=== PATIENT | female | born 1935 | race Caucasian/White ===

== ENCOUNTER → 2016-03-06 | Outpatient (CLI) | payer BC ==
[~2016-03-06] MED LIST: ACET325T96 PO; AMLO-110 PO; AMLO-114 PO; AMT/8 PO; ATEN50TA8 PO; CLC100X PO; CLON0.2T PO; CLOP1TAB15 PO; CLR10 PO; CMD3 PO; CYCL10TA6 PO; DESL1TAB5 PO; DOCU100C31 PO; DOXE150C PO; ERTA1INJ IV; FLR1 PO; FRS/40 PO; FURO-85 PO; GLIP-197 PO; GLYB5TAB8 PO; INSU1INJ SC; ISOS30TA3 PO; LACT1CAP3 PO; LCTL45 PO; LISI-729 PO; LOSA50TA6 PO; LPT/40 PO; LSN5 PO; LSX20 PO; LSX40 PO; LYR50 PO; MECL1TAB40 PO; METO-217 PO; METO1TAB66 PO; MIDO5TAB PO; MRLP17 PO; NRN/100 PO; NVLGIPEN SC; OLAN10TA11 PO; OLAN1TAB50 PO; OLAN1TAB64 PO; PANT40TA PO; PLV75 PO; POLY335019; POLY335019 PO; PROM12.56 PO; SERT-234 PO; SERT25TA PO; SERT50TA PO; SIMV40TA4 PO; TRAM-453 PO; TRAZ100T29 PO; WARF4TAB8 PO; ZNTT/150 PO; ZOLP5TAB PO
[2016-03-06 12:05] LABS: URINE APPEARANCE TURBID (CLEAR); URINE BILIRUBIN NEG (NEG); URINE COLOR YELLOW; URINE EPITHELIAL CELL AUTO >30 /lpf (0-5); URINE NITRITE NEG (NEG); URINE SPECIFIC GRAVITY 1.004 (1.000-1.030); UROBILINOGEN NEG (NEG)
[2016-03-06 12:10] LABS: MANUAL MICROSCOPIC REQUIRED? NO; REVIEW REQ? YES
== END | disposition home or self-care (01) ==
LOC: C.LABSPEC 10:49
PROVIDERS: ATTEND Obstetrics & Gynecology
DX: R31.0 Gross hematuria (principal); A49.01 Methicillin susceptible Staphylococcus aureus infection, unspecified site

== ENCOUNTER → 2016-04-07 | Outpatient (CLI) | payer BC | END | disposition home or self-care (01) | LOC: C.LABMFLN 14:45 | PROVIDERS: ATTEND Family Medicine | DX: N30.00 Acute cystitis without hematuria (principal) ==

== ENCOUNTER → 2016-04-10 | Outpatient (CLI) | payer BC ==
[2016-04-10 13:07] LABS: INR 1.9 (0.9-1.1); PROTHROMBIN TIME (PATIENT) 21.2 SECONDS (9.0-12.0)
== END | disposition home or self-care (01) ==
LOC: C.LABMFLN 11:16
PROVIDERS: ATTEND Family Medicine
DX: D68.59 Other primary thrombophilia (principal)

== ENCOUNTER → 2016-04-28 | Outpatient (CLI) | payer BC, OTHER ==
[2016-04-28 17:56] LABS: ALT/SGPT 36 U/L (12-78); AST/SGOT 24 U/L (15-37); BLOOD UREA NITROGEN 17 mg/dl (7-18); BUN/CREATININE RATIO 22.8 (10-20); CALCIUM 8.3 mg/dl (8.5-10.1); CARBON DIOXIDE 31 mmol/L (21-32); CHLORIDE 107 mmol/L (98-107); CHOLESTEROL 135 mg/dl (0-200); CREATININE 0.74 mg/dl (0.60-1.20); GLUCOSE 163 mg/dl (70-99); POTASSIUM 4.1 mmol/L (3.5-5.1); SODIUM 143 mmol/L (136-145)
[2016-04-28 18:06] LABS: CHOLESTEROL/HDL RATIO 2.9; HDL CHOLESTEROL 47 mg/dl; TRIGLYCERIDES 142 mg/dl (0-150); VERY LOW DENSITY LIPOPROT CALC 28 mg/dl
[2016-04-29 06:15] LABS: ESTIMATED AVERAGE GLUCOSE 171 mg/dl; HA1C FLAG Normal (Normal)
== END | disposition home or self-care (01) ==
LOC: C.LABMFLN 04-26 10:37
PROVIDERS: ATTEND Family Medicine
DX: E11.9 Type 2 diabetes mellitus without complications (principal); E78.5 Hyperlipidemia, unspecified; I10 Essential (primary) hypertension; K21.9 Gastro-esophageal reflux disease without esophagitis; R13.10 Dysphagia, unspecified

== ENCOUNTER → 2016-05-01 | Outpatient (CLI) | payer BC ==
[2016-05-01 14:13] LABS: RATIO 743.8 mcg/mg (0-30.0)
== END | disposition home or self-care (01) ==
LOC: C.LABMFLN 08:16
PROVIDERS: ATTEND Family Medicine
DX: K21.9 Gastro-esophageal reflux disease without esophagitis (principal); R13.10 Dysphagia, unspecified; E78.5 Hyperlipidemia, unspecified; I10 Essential (primary) hypertension; E11.9 Type 2 diabetes mellitus without complications

== ENCOUNTER → 2016-05-12 | Outpatient (CLI) | payer BC ==
[2016-05-12 13:13] LABS: HEMATOCRIT 34.5 % (37-47); MEAN CELL VOLUME 88.9 fL (80-100); MEAN CORPUSCULAR HEMOGLOBIN 29.1 pg (25-34); MEAN CORPUSCULAR HGB CONC 32.8 g/dl (32-36); PLATELET COUNT 148 K/uL (130-400); RED BLOOD COUNT 3.88 M/uL (4.2-5.4); WHITE BLOOD COUNT 8.46 K/uL (4.8-10.8)
[2016-05-12 13:29] LABS: BLOOD UREA NITROGEN 16 mg/dl (7-18); BUN/CREATININE RATIO 14.9 (10-20); CALCIUM 8.1 mg/dl (8.5-10.1); CARBON DIOXIDE 31 mmol/L (21-32); CHLORIDE 105 mmol/L (98-107); GLUCOSE 238 mg/dl (70-99); POTASSIUM 4.7 mmol/L (3.5-5.1); SODIUM 141 mmol/L (136-145)
== END | disposition home or self-care (01) ==
LOC: C.LABMFLN 09:34
PROVIDERS: ATTEND Internal Medicine Cardiovascular Disease
DX: I50.32 Chronic diastolic (congestive) heart failure (principal); D68.59 Other primary thrombophilia; I25.5 Ischemic cardiomyopathy

== ENCOUNTER → 2016-05-19 | Outpatient (CLI) | payer BC ==
[2016-05-19 13:29] LABS: BLOOD UREA NITROGEN 18 mg/dl (7-18); BUN/CREATININE RATIO 16.5 (10-20); CALCIUM 8.2 mg/dl (8.5-10.1); CARBON DIOXIDE 34 mmol/L (21-32); CHLORIDE 104 mmol/L (98-107); GLUCOSE 235 mg/dl (70-99); MAGNESIUM 2.1 mg/dl (1.8-2.4); POTASSIUM 4.3 mmol/L (3.5-5.1); SODIUM 141 mmol/L (136-145)
== END | disposition home or self-care (01) ==
LOC: C.LABMFLN 09:32
PROVIDERS: ATTEND Physician Assistant Medical
DX: I50.32 Chronic diastolic (congestive) heart failure (principal)

== ENCOUNTER → 2016-05-24 | Outpatient (CLI) | payer BC ==
[2016-05-24 13:29] LABS: BLOOD UREA NITROGEN 22 mg/dl (7-18); BUN/CREATININE RATIO 16.5 (10-20); CARBON DIOXIDE 31 mmol/L (21-32); CHLORIDE 103 mmol/L (98-107); GLUCOSE 291 mg/dl (70-99); POTASSIUM 4.6 mmol/L (3.5-5.1); SODIUM 141 mmol/L (136-145)
== END | disposition home or self-care (01) ==
LOC: C.LABMFLN 07:52
PROVIDERS: ATTEND Physician Assistant Medical
DX: I50.32 Chronic diastolic (congestive) heart failure (principal)

== ENCOUNTER → 2016-05-26 | Outpatient (CLI) | payer BC ==
[~2016-05-26] MED LIST changes: -FLR1 PO; +FLUD0.1T PO; +METO-452 PO; -METO1TAB66 PO
[2016-05-26 13:39] LABS: BLOOD UREA NITROGEN 20 mg/dl (7-18); BUN/CREATININE RATIO 17.8 (10-20); CALCIUM 8.4 mg/dl (8.5-10.1); CARBON DIOXIDE 32 mmol/L (21-32); CHLORIDE 102 mmol/L (98-107); GLUCOSE 197 mg/dl (70-99); POTASSIUM 4.2 mmol/L (3.5-5.1); SODIUM 142 mmol/L (136-145)
== END | disposition home or self-care (01) ==
LOC: C.LABMFLN 13:53
PROVIDERS: ATTEND Family Medicine
DX: I50.32 Chronic diastolic (congestive) heart failure (principal)

== ENCOUNTER → 2016-06-02 | Outpatient (CLI) | payer BC ==
[2016-06-02 17:59] LABS: URINE APPEARANCE CLEAR (CLEAR); URINE BILIRUBIN NEG (NEG); URINE COLOR YELLOW; URINE EPITHELIAL CELL AUTO 0-5 /lpf (0-5); URINE NITRITE POS (NEG); URINE PH 5.5 (4.5-7.5); UROBILINOGEN NEG (NEG)
[2016-06-02 18:00] LABS: MANUAL MICROSCOPIC REQUIRED? NO; REVIEW REQ? NO
[2016-06-02 18:03] LABS: HEMATOCRIT 33.9 % (37-47); MEAN CELL VOLUME 86.5 fL (80-100); MEAN CORPUSCULAR HEMOGLOBIN 28.3 pg (25-34); MEAN CORPUSCULAR HGB CONC 32.7 g/dl (32-36); PLATELET COUNT 151 K/uL (130-400); RED BLOOD COUNT 3.92 M/uL (4.2-5.4); WHITE BLOOD COUNT 7.46 K/uL (4.8-10.8)
[2016-06-02 18:09] LABS: BLOOD UREA NITROGEN 21 mg/dl (7-18); BUN/CREATININE RATIO 18.7 (10-20); GLUCOSE 206 mg/dl (70-99)
[2016-06-02 18:10] LABS: CALCIUM 8.4 mg/dl (8.5-10.1); CARBON DIOXIDE 36 mmol/L (21-32); CHLORIDE 104 mmol/L (98-107); MAGNESIUM 2.1 mg/dl (1.8-2.4); POTASSIUM 4.1 mmol/L (3.5-5.1); SODIUM 142 mmol/L (136-145)
== END | disposition home or self-care (01) ==
LOC: C.LABMFLN 11:09
PROVIDERS: ATTEND Physician Assistant
DX: R31.0 Gross hematuria (principal); I11.0 Hypertensive heart disease with heart failure; I50.32 Chronic diastolic (congestive) heart failure

== ENCOUNTER → 2016-06-08 | Outpatient (CLI) | payer BC ==
[2016-06-08 13:45] LABS: FERRITIN 18.9 ng/ml (8.0-388.0)
--- NOTE | 2016-06-16 12:36 | CODING QUERY MEDICAL NECESSITY ---
CQSUPPORTING DIAGNOSIS NEEDED A supporting diagnosis is required for the test/procedure performed on this patient in order for us to be reimbursed by the patient's insurance. Please provide a supporting diagnosis for the following test/procedure listed below next to the test name along with your signature. *If there is no additional diagnosis for this patient that would support the following test/procedure please document that below next to the test/procedure. Test(s)/Procedure(s) that require a supporting diagnosis: DOS 06/08/16 VITAMIN B12 Provider Signature: Date: Thank you Morelia Leary [employer] Once completed, please kindly fax back to [phone] For questions please call [phone]
== END | disposition home or self-care (01) ==
LOC: C.LABMFLN 09:13
PROVIDERS: ATTEND Family Medicine
DX: D64.9 Anemia, unspecified (principal); E53.8 Deficiency of other specified B group vitamins

== ENCOUNTER 2016-06-20 12:22 | Emergency (ER) | payer BC, OTHER ==
[~2016-06-20 12:22] MED LIST changes: -ACET325T96 PO; -AMLO-110 PO; -AMLO-114 PO; -AMT/8 PO; -CLON0.2T PO; -CLR10 PO; -CMD3 PO; -CYCL10TA6 PO; -DOCU100C31 PO; -ERTA1INJ IV; -FLUD0.1T PO; -FRS/40 PO; -FURO-85 PO; -GLYB5TAB8 PO; -LACT1CAP3 PO; -LCTL45 PO; -LISI-729 PO; -LPT/40 PO; -LSN5 PO; -LSX20 PO; -LSX40 PO; -LYR50 PO; -MECL1TAB40 PO; -METO-217 PO; -METO-452 PO; -MIDO5TAB PO; -MRLP17 PO; -NVLGIPEN SC; -OLAN10TA11 PO; -OLAN1TAB50 PO; -OLAN1TAB64 PO; -PLV75 PO; -POLY335019 PO; -SERT-234 PO; -SERT50TA PO; -TRAZ100T29 PO; -WARF4TAB8 PO; -ZNTT/150 PO; -ZOLP5TAB PO
[2016-06-20 12:41] VITALS: O2SAT 93
[2016-06-20 13:23] LABS: BASO % 0.1 %; BASO ABS # 0.01 K/uL (0-0.2); COMPLETE YES; EOS % 2.8 %; HEMATOCRIT 33.1 % (37-47); IG% 0.3 %; LYMPH % 33.6 %; LYMPH ABS # 2.28 K/uL (1.2-3.4); MEAN CELL VOLUME 87.6 fL (80-100); MEAN PLATELET VOLUME 10.9 fL (7.4-10.4); MONO % 8.1 %; NEUT % 55.1 %; PLATELET COUNT 146 K/uL (130-400); RED BLOOD COUNT 3.78 M/uL (4.2-5.4); WHITE BLOOD COUNT 6.79 K/uL (4.8-10.8)
[2016-06-20] MEDS ORDERED: ZNTT/150 PO (13:27)
[2016-06-20] MEDS ORDERED: OLAN1TAB64 PO (13:27)
[2016-06-20] MEDS ORDERED: AMLO-110 PO (13:27)
[2016-06-20] MEDS ORDERED: DOCU100C31 PO (13:27)
[2016-06-20] MEDS ORDERED: SERT-234 PO (13:27)
[2016-06-20] MEDS ORDERED: LISI-729 PO (13:27)
[2016-06-20] MEDS ORDERED: FURO-85 PO (13:27)
[2016-06-20] MEDS ORDERED: METO-452 PO (13:27)
[2016-06-20] MEDS ORDERED: LPT/40 PO (13:27)
[2016-06-20] MEDS ORDERED: GLYB5TAB8 PO (13:27)
[2016-06-20] MEDS ORDERED: TRAZ100T29 PO (13:27)
[2016-06-20] MEDS ORDERED: LYR50 PO ×2 (13:27)
[2016-06-20] MEDS ORDERED: WARF4TAB8 PO (13:27)
[2016-06-20 13:43] LABS: ALT/SGPT 42 U/L (12-78); AST/SGOT 21 U/L (15-37); BLOOD UREA NITROGEN 25 mg/dl (7-18); CALCIUM 8.4 mg/dl (8.5-10.1); CARBON DIOXIDE 34 mmol/L (21-32); CHLORIDE 102 mmol/L (98-107); GLUCOSE 296 mg/dl (70-99); POTASSIUM 4.8 mmol/L (3.5-5.1); SODIUM 139 mmol/L (136-145)
[2016-06-20 13:46] LABS: ALKALINE PHOSPHATASE 156 U/L (45-117)
[2016-06-20 15:07] LABS: INR 2.5 (0.9-1.1); PARTIAL THROMBOPLASTIN RATIO 1.4; PROTHROMBIN TIME (PATIENT) 27.4 SECONDS (9.0-12.0)
--- NOTE | 2016-06-20 15:43 | DIAGNOSTIC IMAGING REPORT ---
CHEST AND ABDOMEN 2 VIEWS HISTORY: Short of breath. Abdominal bloating. COMPARISON: None. FINDINGS: No pneumothorax. No pleural effusions. The heart is mildly enlarged. Left-sided dual-chamber pacemaker. Cervical spinal fusion hardware. Surgical clips at the epigastric region. The lungs are clear. No pneumoperitoneum. No pneumatosis. Large amount well-formed stool seen throughout the colon rectum. Round calcifications in the deep pelvis favor phleboliths. No definite renal or ureteral calculi. No dilated loops of small bowel to suggest an obstruction. IMPRESSION: 1. Mild cardiomegaly. 2. Severe constipation. 3. No evidence for bowel obstruction. Electronically signed by: Rudy Gaston M.D. 06/20/2016 3:41 PM Dictated Date/Time: 06/20/2016 3:34 PM
[2016-06-20] MEDS ORDERED: POLYETHYLENE (MIRALAX) 17 GM PACK PO STA (15:45)
[2016-06-20 17:33] VITALS: BP 134/65; PULSE 65; TEMP 36.5; O2SAT 95
--- NOTE | 2016-06-20 18:15 | EMERGENCY ROOM VISIT NOTE ---
History Report prepared by Medhat: Abdiel Whitt Under the Supervision of: Dr. Jamil Vogt M.D. First contact with patient: 12:34 Chief Complaint: SHORTNESS OF BREATH Stated Complaint: SWELLING IN STOMACH,SOB,BLOOD CLOT ON HEART History of Present Illness The patient is a 80 year old female who presents to the Emergency Room with complaints of worsening swelling that started about 3 days ago. Per the patient' s , the patient has had ongoing issues with swelling. The areas that are swollen include her legs, abdomen, and face. The patient also complains of abdominal pain. She feels that it is bloated. She is chronically short of breath on exertion. She has not noticed an increase in her shortness of breath. The patient is also noted to be constipated and has not had a bowel movement for 3 days. She was admitted at [facility] 6 to 8 weeks ago for heart failure and swelling. 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 She was then put on Coumadin. Per the patient's , the patient has gained around 20 pounds in the past month or so. She is diabetic, and has a history of a stroke. Ever since the stroke, she has had trouble lifting her left leg. The patient also has hypertension. She denies any chest pain or discomfort, fever, cough, vomiting, recent cold symptoms, recent diarrhea, or urinary symptoms. The patient is on Lasix 80 mg per day. She has a pacemaker in place. Source of History: patient, family Onset: chronic, worsening over the past 3 days Position: other (global - swelling ) Symptom Intensity: severe Quality: other (swelling) Timing: worsening Modifying Factors (Relieving): other (Lasix) Associated Symptoms: + abdominal pain, No chest pain, No cough, No diarrhea , No urinary symptoms, No vomiting Note: Associated symptoms: Gained 20 pounds in past month. Constipated for last 3 days. Denies recent cold symptoms. Review of Systems See HPI for pertinent positives & negatives. A total of 10 systems reviewed and were otherwise negative. Past Medical & Surgical Medical Problems: (1) blood clot left ventricle (2) Diabetes (3) Exertional shortness of breath (4) HTN (hypertension) (5) Pacemaker (6) Stroke Family History Cancer Heart disease Hypertension Lung disease Social History Smoking Status: Never Smoker Smokeless Tobacco Use: No Alcohol Use: none Marital Status: Housing Status: lives with family Occupation Status: retired Current/Historical Medications Scheduled Amlodipine (Norvasc), 5 MG PO DAILY Atorvastatin (Lipitor), 40 MG PO HS Docusate Sodium (Docusate Sodium), 200 MG PO HS Furosemide (Lasix), 80 MG PO DAILY Glyburide (Micronase), 5 MG PO DAILY Insulin Isophan/Regular (Humulin 70/30), 30 SC QAM Insulin Isophan/Regular (Humulin 70/30), 12 UNITS SC QPM Isosorbide Mononitrate Ext Rel (Imdur Ext Rel), 30 MG PO QAM Lisinopril (Zestril), 5 MG PO DAILY Metoprolol Succinate (Toprol Xl), 50 MG PO DAILY Olanzapine (Zyprexa), 15 MG PO DAILY Pregabalin (Lyrica), 50 MG PO QAM Pregabalin (Lyrica), 100 MG PO HS Ranitidine (Zantac), 150 MG PO Q12 Sertraline (Zoloft), 100 MG PO DAILY Trazodone Hcl (Trazodone), 100 MG PO HS Warfarin Sod (Jantoven), 4 MG PO Q2D Warfarin Sod (Jantoven), 2 MG PO Q2D Allergies Coded Allergies: Metformin (Verified Allergy, Mild, UNKNOWN, 09/30/12) Aspirin (Verified Allergy, Unknown, Unknown rxn, 09/30/12) Propoxyphene (Verified Allergy, Unknown, Unknown rxn, 09/30/12) Physical Exam Vital Signs Date Time Temp Pulse Resp B/P Pulse Ox O2 Delivery O2 Flow Rate FiO2 06/20/16 17:33 36.5 65 20 134/65 95 06/20/16 17:32 65 20 134/65 95 Room Air 06/20/16 14:47 60 16 06/20/16 14:42 60 19 06/20/16 14:37 61 18 06/20/16 14:32 73 19 06/20/16 14:27 65 17 06/20/16 14:22 93 15 06/20/16 14:17 67 15 06/20/16 14:15 60 21 106/57 Room Air 06/20/16 14:12 61 20 106/57 92 06/20/16 14:07 63 15 94 06/20/16 14:02 63 15 94 06/20/16 13:57 62 18 93 06/20/16 13:52 61 8 93 06/20/16 13:47 64 18 94 06/20/16 13:42 60 16 93 06/20/16 13:37 60 17 95 06/20/16 13:32 60 15 93 06/20/16 13:27 61 17 94 06/20/16 13:22 60 13 94 06/20/16 13:17 60 17 93 06/20/16 13:12 60 16 93 06/20/16 13:07 62 18 93 06/20/16 13:02 60 16 83 06/20/16 12:57 60 16 95 06/20/16 12:52 60 17 95 06/20/16 12:50 65 06/20/16 12:47 65 18 95 06/20/16 12:41 93 Room Air 06/20/16 12:37 94 Room Air 06/20/16 12:28 36.5 88 20 120/69 93 Physical Exam Constitutional: Vital signs reviewed. Eyes: Pupils are equal round reactive to light. Conjunctiva are noninjected. ENT: Pharynx is clear without erythema or exudate. Mucous membranes are moist. Neck supple without meningeal signs. Respiratory: Bilateral crackles at bases. Breath sounds are equal bilaterally. Cardiovascular: Regular rate and rhythm. No rubs or gallops. GI: Soft, distended, minimally diffusely tender. Bowel sounds are present. Musculoskeletal: Bilateral pitting edema. No lower extremity tenderness. No swelling to hands. Integumentary: No cyanosis. Neurological: The patient is awake and alert. No focal deficits. Psychiatric: Normal affect. Medical Decision & Procedures ER Provider Diagnostic Interpretation: X-ray results as stated below per interpretation by me and the radiologist: CHEST AND ABDOMEN 2 VIEWS HISTORY: Short of breath. Abdominal bloating. COMPARISON: None. FINDINGS: No pneumothorax. No pleural effusions. The heart is mildly enlarged. Left-sided dual-chamber pacemaker. Cervical spinal fusion hardware. Surgical clips at the epigastric region. The lungs are clear. No pneumoperitoneum. No pneumatosis. Large amount well-formed stool seen throughout the colon rectum. Round calcifications in the deep pelvis favor phleboliths. No definite renal or ureteral calculi. No dilated loops of small bowel to suggest an obstruction. IMPRESSION: 1. Mild cardiomegaly. 2. Severe constipation. 3. No evidence for bowel obstruction. Electronically signed by: Rudy Gaston M.D. 06/20/2016 3:41 PM Dictated Date/Time: 06/20/2016 3:34 PM Laboratory Results 06/20/16 13:10 Red Blood Count 3.78, Mean Corpuscular Volume 87.6, Mean Corpuscular Hemoglobin 28.0, Mean Corpuscular Hemoglobin Concent 32.0, Mean Platelet Volume 10.9, Neutrophils (%) (Auto) 55.1, Lymphocytes (%) (Auto) 33.6, Monocytes (%) (Auto) 8.1, Eosinophils (%) (Auto) 2.8, Basophils (%) (Auto) 0.1, Neutrophils # (Auto) 3.74, Lymphocytes # (Auto) 2.28, Monocytes # (Auto) 0.55, Eosinophils # (Auto) 0.19, Basophils # (Auto) 0.01 06/20/16 13:10 Test 06/20/16 13:10 06/20/16 13:22 06/20/16 14:30 White Blood Count 6.79 K/uL (4.8-10.8) Red Blood Count 3.78 M/uL (4.2-5.4) Hemoglobin 10.6 g/dL (12.0-16.0) Hematocrit 33.1 % (37-47) Mean Corpuscular Volume 87.6 fL (80-100) Mean Corpuscular Hemoglobin 28.0 pg (25-34) Mean Corpuscular Hemoglobin Concent 32.0 g/dl (32-36) Platelet Count 146 K/uL (130-400) Mean Platelet Volume 10.9 fL (7.4-10.4) Neutrophils (%) (Auto) 55.1 % Lymphocytes (%) (Auto) 33.6 % Monocytes (%) (Auto) 8.1 % Eosinophils (%) (Auto) 2.8 % Basophils (%) (Auto) 0.1 % Neutrophils # (Auto) 3.74 K/uL (1.4-6.5) Lymphocytes # (Auto) 2.28 K/uL (1.2-3.4) Monocytes # (Auto) 0.55 K/uL (0.11-0.59) Eosinophils # (Auto) 0.19 K/uL (0-0.5) Basophils # (Auto) 0.01 K/uL (0-0.2) RDW Standard Deviation 45.1 fL (36.4-46.3) RDW Coefficient of Variation 14.0 % (11.5-14.5) Immature Granulocyte % (Auto) 0.3 % Immature Granulocyte # (Auto) 0.02 K/uL (0.00-0.02) Anion Gap 3.0 mmol/L (3-11) Estimated GFR () 49.8 Estimated GFR (Non- 43.0 BUN/Creatinine Ratio 21.0 (10-20) Calcium Level 8.4 mg/dl (8.5-10.1) Total Bilirubin 0.5 mg/dl (0.2-1) Direct Bilirubin 0.1 mg/dl (0-0.2) Aspartate Amino Transf (AST/SGOT) 21 U/L (15-37) Alanine Aminotransferase (ALT/SGPT) 42 U/L (12-78) Alkaline Phosphatase 156 U/L (45-117) Total Protein 7.1 gm/dl (6.4-8.2) Albumin 3.4 gm/dl (3.4-5.0) Bedside Troponin I 0.000 ng/ml (0-0.045) UW-Nek-J-Type Natriuretic Peptide 341 pg/ml (0-1800) Prothrombin Time 27.4 SECONDS (9.0-12.0) Prothromb Time International Ratio 2.5 (0.9-1.1) Activated Partial Thromboplast Time 35.5 SECONDS (21.0-31.0) Partial Thromboplastin Ratio 1.4 Laboratory results as reviewed by me. Medications Administered Medications (Trade) Dose Ordered Sig/Holden Route Start Time Stop Time Status Last Admin Dose Admin Polyethylene (Miralax Powder Packet) 17 gm ONE STAT PO 06/20/16 15:45 06/20/16 15:47 DC 06/20/16 16:51 17 GM ECG Indication: SOB/dyspnea Rate (beats per minute): 60 Rhythm: other (AV dual paced) Findings: no ectopy, other (QRS is 162 ms) Comparison ECG Date: no prior available ED Course 1235: The patient was evaluated in room B2. A complete history and physical exam was performed. 1250: Upon reviewing the patient's medical records, it was found that the patient had an apical thrombus in left ventricle which was noted during stroke workup and was placed on Coumadin. She was also seen in the ED in [place] yesterday for swelling to her abdomen and legs and she was discharged for outpatient workup after she was given a dose of Lasix. 1505: I reevaluated the patient and let her and her family know about the test results. 1544: I reevaluated the patient and talked to her about her x-ray results. We will give her an enema and some laxatives. 1545: Ordered Miralax Powder Packet 17 gm PO. 1608: I discussed the patient with Dr. Gamble - [facility] [place] cardi[place] - he says that the patient's swelling is no cardiac in nature based on her clinical picture, blood-work, and x-ray. He has seen her multiple times, and increasing her Lasix often gives her kidney problems so he did not want to increase her Lasix. He recommended compression stocking if she could tolerate it, and no change in Lasix dosing. 1630: I told the patient's family about Dr. Gamble's recommendations. 1650: I reevaluated the patient and she is having a bowel movement. 1710: I reevaluated the patient and she is feeling better and had a large bowel movement. She has no tenderness on examination. The patient verbally expressed understanding and agreement of the treatment plan. The patient will be discharged. Medical Decision This is a 80-year-old female who presents with diffuse swelling and shortness of breath. Differential diagnosis includes CHF, pulmonary edema, pneumonia, acute coronary syndrome, peripheral edema, ascites, anasarca. I did perform a limited focused review of portions of the patient's old chart on the electronic medical record. The patient has had no recent pertinent visits to this hospital. I did evaluate the patient as noted above. The patient has a chronic issue with swelling and has been on Lasix for some time. She has noted some increased swelling and weight gain over the past month which her states is worse over the past 3 days. She is most concerned about her abdominal distention which is affecting her breathing. She is concerned she has fluid in her abdomen but does state that she has not had a bowel movement in 3 days. IV access was established. The patient was placed on a continuous youth nutritional monitor. I did order and personally review the patient's 12-lead EKG and chest/ abdominal x-rays as described above. Her chest x-ray does not demonstrate any evidence of CHF or pulmonary edema. She does have significant constipation throughout her colon. I did order and review the patient's blood work as noted in the electronic medical record. Her labs are not consistent with a CHF exacerbation. BNP is not elevated. Troponin is not elevated. I did discuss the test results with the patient and her family. I did discuss the case with her excavator operator who recommended the patient continue her Lasix without any change in dosage and follow up as an outpatient. I did treat the patient with MiraLAX as well as a soapsuds enema. She did have a very large bowel movement here and felt better afterwards. Her abdomen is nontender on reevaluation. I recommend she continue laxatives at home and follow up with her doctor within 48 hours. She was given return instructions as outlined below and discharged in good condition. Consults Time Called: [id number] Consulting Physician[facility] Returned Call: [phone] I discussed the patient with Dr[facility] Gr[facility] - he says that the patient's swelling is no cardiac in nature based on her clinical picture, blood- work, and x-ray. He has seen her multiple times, and increasing her Lasix often gives her kidney problems so he did not want to increase her Lasix. He recommended compression stocking if she could tolerate it, and no change in Lasix dosing. Impression Primary Impression: Constipation Additional Impressions: Peripheral edema Anticoagulated on Coumadin Hyperglycemia Scribe Attestation The scribe's documentation has been prepared under my direct and personally reviewed by me in its entirety. I confirm that the note above accurately reflects all work, treatment, procedures, and medical decision making performed by me. Departure Information Dispostion Home / Self-Care Referrals No Doctor, Assigned (PCP) Forms HOME CARE DOCUMENTATION FORM, IMPORTANT VISIT INFORMATION Patient Instructions Constipation, ED Leg Swelling Bilateral, My [facility] Additional Instructions You have been examined and treated today on an emergency basis only. This is not a substitute for, or an effort to provide, complete comprehensive medical care. It is impossible to recognize and treat all injuries or illnesses in a single emergency department visit. It is therefore important that you follow up closely with your physician within 48 hours. Call as soon as possible for an appointment. Return for worsening symptoms or if you develop fever, vomiting, chest pain, rectal bleeding or any other concerning symptoms. Continue MiraLAX at home. Stop if you develop abdominal pain. Problem Qualifiers Primary Impression: Constipation Constipation type: unspecified constipation type Qualified Codes: K59.00 - Constipation, unspecified
[2016-07-17] MEDS ORDERED: ERTA1INJ IV (19:21)
[2016-07-18] MEDS ORDERED: LSX40 PO (10:16)
[2016-07-18] MEDS ORDERED: MRLP17 PO (10:16)
[2016-07-18] MEDS ORDERED: ACET325T96 PO (10:16)
[2016-07-18] MEDS ORDERED: DOCU100C31 PO (10:16)
[2016-07-18] MEDS ORDERED: CMD3 PO (10:16)
[2016-07-18] MEDS ORDERED: LCTL45 PO (10:16)
[2016-07-18] MEDS ORDERED: NVLGIPEN SC (10:22)
[2016-09-23] MEDS ORDERED: FLUD0.1T PO (14:10)
[2016-11-19] MEDS ORDERED: FLUD0.1T PO (09:47)
== END 2016-06-20 17:35 | disposition home or self-care (01) ==
LOC: C.EDB 12:24
DX: K59.00 Constipation, unspecified (principal); R60.0 Localized edema; E11.65 Type 2 diabetes mellitus with hyperglycemia; I10 Essential (primary) hypertension; Z86.73 Personal history of transient ischemic attack (TIA), and cerebral infarction without residual deficits; Z79.01 Long term (current) use of anticoagulants; Z79.4 Long term (current) use of insulin

== ENCOUNTER → 2016-06-27 | Outpatient (CLI) | payer BC, OTHER ==
[~2016-06-27] MED LIST changes: +ACET325T96 PO; +AMLO-110 PO; +AMLO-114 PO; +AMT/8 PO; -ATEN50TA8 PO; -CLC100X PO; +CLON0.2T PO; -CLOP1TAB15 PO; +CLR10 PO; +CMD3 PO; +CYCL10TA6 PO; -DESL1TAB5 PO; +DOCU100C31 PO; -DOXE150C PO; +ERTA1INJ IV; +FLUD0.1T PO; +FRS/40 PO; +FURO-85 PO; -GLIP-197 PO; +GLYB5TAB8 PO; +LACT1CAP3 PO; +LCTL45 PO; +LISI-729 PO; -LOSA50TA6 PO; +LPT/40 PO; +LSN5 PO; +LSX20 PO; +LSX40 PO; +LYR50 PO; +MECL1TAB40 PO; +METO-217 PO; +METO-452 PO; +MIDO5TAB PO; +MRLP17 PO; -NRN/100 PO; +NVLGIPEN SC; +OLAN10TA11 PO; +OLAN1TAB50 PO; +OLAN1TAB64 PO; +PLV75 PO; -POLY335019; +POLY335019 PO; -PROM12.56 PO; +SERT-234 PO; -SERT25TA PO; +SERT50TA PO; -SIMV40TA4 PO; -TRAM-453 PO; +TRAZ100T29 PO; +WARF4TAB8 PO; +ZNTT/150 PO; +ZOLP5TAB PO
[2016-06-27 13:39] LABS: URINE APPEARANCE CLOUDY (CLEAR); URINE BILIRUBIN NEG (NEG); URINE COLOR YELLOW; URINE NITRITE POS (NEG); URINE PH 5.5 (4.5-7.5); URINE SPECIFIC GRAVITY 1.008 (1.000-1.030); UROBILINOGEN NEG (NEG)
[2016-06-27 14:05] LABS: MANUAL MICROSCOPIC REQUIRED? NO; REVIEW REQ? NO
== END | disposition home or self-care (01) ==
LOC: C.LABMFLN 08:13
PROVIDERS: ATTEND Family Medicine
DX: D64.9 Anemia, unspecified (principal); N30.00 Acute cystitis without hematuria

== ENCOUNTER → 2016-06-28 | Outpatient (CLI) | payer BC, OTHER ==
[2016-06-28 13:15] LABS: ALT/SGPT 35 U/L (12-78); BLOOD UREA NITROGEN 17 mg/dl (7-18); BUN/CREATININE RATIO 14.3 (10-20); CARBON DIOXIDE 31 mmol/L (21-32); CHLORIDE 104 mmol/L (98-107); GLUCOSE 230 mg/dl (70-99); POTASSIUM 4.2 mmol/L (3.5-5.1); SODIUM 142 mmol/L (136-145)
[2016-06-28 13:30] LABS: ALB/GLOB RATIO 0.9 (0.9-2); ALKALINE PHOSPHATASE 138 U/L (45-117); AST/SGOT 25 U/L (15-37)
[2016-06-28 13:46] LABS: CALCIUM 8.5 mg/dl (8.5-10.1)
== END | disposition home or self-care (01) ==
LOC: C.LABMFLN 11:02
PROVIDERS: ATTEND Family Medicine
DX: R60.0 Localized edema (principal); D68.59 Other primary thrombophilia; I25.5 Ischemic cardiomyopathy

== ENCOUNTER 2016-07-13 11:49 | Inpatient (IN) | payer BC, OTHER ==
[~2016-07-13] VITALS: Ht 152.4 cm; Wt 83.2 kg
[~2016-07-13 11:49] MED LIST changes: -ACET325T96 PO; -AMLO-114 PO; -AMT/8 PO; -CLON0.2T PO; -CLR10 PO; -CMD3 PO; -CYCL10TA6 PO; -ERTA1INJ IV; -FLUD0.1T PO; -FRS/40 PO; -LACT1CAP3 PO; -LCTL45 PO; -LSN5 PO; -LSX20 PO; -LSX40 PO; -MECL1TAB40 PO; -METO-217 PO; -MIDO5TAB PO; -MRLP17 PO; -NVLGIPEN SC; -OLAN10TA11 PO; -OLAN1TAB50 PO; -PANT40TA PO; -PLV75 PO; -POLY335019 PO; -SERT50TA PO; -ZOLP5TAB PO
[2016-07-13] MEDS ORDERED: SODIUM CHLORIDE 0.9% 1000ML 1,000 ML IV ONE (12:12)
--- NOTE | 2016-07-13 12:19 | EMERGENCY ROOM VISIT NOTE ---
History Report prepared by Medhat: Abdiel Whitt Under the Supervision of: Dr. Ankur Boone D.O. First contact with patient: 12:02 Chief Complaint: NAUSEA Stated Complaint: SICK STOMACH X1 WK, CHILLS, UTI, DISPOSITION History of Present Illness The patient is an 81 year old female who presents to the Emergency Room with complaints of a persistent illness that started a week ago. She says that she has been very nauseous, and has had increased urinary frequency with cloudy urine. The patient states that she has been also having lower abdominal pain. The patient saw her primary care physician earlier today, and was told to come here to be admitted because the physician wants the patient to get IV antibiotics and the patient's urine is resistant to many antibiotics. The patient denies any chest pain, shortness of breath, back pain, hematuria, or burning with urination. The patient's family says that the patient has a UTI, and gets bad UTIs often. 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 She is on Lasix. The patient has a history of neck surgery, cholecystectomy, hiatal hernia repair, hysterectomy, colonoscopy, and bowel operation. Source of History: patient, family Onset: A week ago Position: other (global - illness) Timing: other (persis) Associated Symptoms: + abdominal pain (low), + nausea, + urinary symptoms ( increased urinary frequency with cloudy urine, denies hematuria or burning with urination), No SOB, No back pain, No chest pain Review of Systems See HPI for pertinent positives & negatives. A total of 10 systems reviewed and were otherwise negative. Past Medical & Surgical Medical Problems: (1) blood clot left ventricle (2) Diabetes (3) ESBL (extended spectrum beta-lactamase) producing bacteria infection (4) Exertional shortness of breath (5) HTN (hypertension) (6) Pacemaker (7) Stroke Family History Cancer Heart disease Hypertension Lung disease Social History Smoking Status: Never Smoker Alcohol Use: none Marital Status: Housing Status: lives with family Occupation Status: retired Current/Historical Medications Scheduled Amlodipine (Norvasc), 5 MG PO DAILY Atorvastatin (Lipitor), 40 MG PO HS Docusate Sodium (Docusate Sodium), 200 MG PO HS Furosemide (Lasix), 80 MG PO DAILY Glyburide (Micronase), 5 MG PO DAILY Insulin Isophan/Regular (Humulin 70/30), 30 SC QAM Insulin Isophan/Regular (Humulin 70/30), 12 UNITS SC QPM Isosorbide Mononitrate Ext Rel (Imdur Ext Rel), 30 MG PO QAM Lisinopril (Zestril), 5 MG PO DAILY Metoprolol Succinate (Toprol Xl), 50 MG PO DAILY Olanzapine (Zyprexa), 15 MG PO DAILY Pantoprazole (Protonix), 40 MG PO DAILY Pregabalin (Lyrica), 50 MG PO QAM Pregabalin (Lyrica), 100 MG PO HS Sertraline (Zoloft), 100 MG PO DAILY Trazodone Hcl (Trazodone), 100 MG PO HS Warfarin Sod (Jantoven), 4 MG PO Q2D Warfarin Sod (Jantoven), 2 MG PO Q2D Allergies Coded Allergies: Metformin (Verified Allergy, Mild, UNKNOWN, 07/13/16) Aspirin (Verified Allergy, Unknown, Unknown rxn, 07/13/16) Propoxyphene (Verified Allergy, Unknown, Unknown rxn, 07/13/16) Physical Exam Vital Signs Date Time Temp Pulse Resp B/P Pulse Ox O2 Delivery O2 Flow Rate FiO2 07/13/16 16:30 77 16 138/66 98 Nasal Cannula 2.0 07/13/16 15:35 66 16 142/60 98 Nasal Cannula 2.0 07/13/16 14:50 97 Nasal Cannula 2.0 07/13/16 14:49 60 16 120/58 88 Room Air 07/13/16 13:46 77 16 120/58 91 Room Air 07/13/16 12:51 98 Room Air 07/13/16 11:54 36.8 68 20 104/59 98 Room Air Physical Exam GENERAL: Patient is awake, alert, and in no acute distress. Patient is resting comfortably and showing no signs of anxiety EYES: The conjunctivae are clear. The pupils are round and reactive. EARS, NOSE, MOUTH AND THROAT: The nose is without any evidence of any deformity. Mucous membranes are dry tongue is midline NECK: The neck is nontender and supple. RESPIRATORY: Normal respiratory effort is noted there is no evidence of wheezing rhonchi or rales CARDIOVASCULAR: Regular rate and rhythm noted there no murmurs rubs or gallops normal S1 normal S2 GASTROINTESTINAL: The abdomen is mildly distended but soft. No specific guarding or rigidity appreciated. BACK: No CVA tenderness noted to percussion. MUSCULOSKELETAL/EXTREMITIES: There is no evidence of gross deformity full range of motion is noted in the hips and shoulders SKIN: There is no obvious evidence of any rash. There are no petechiae, pallor or cyanosis noted. NEUROLOGIC: Patient is awake alert and oriented x3. Medical Decision & Procedures ER Provider Diagnostic Interpretation: X-ray results as stated below per interpretation by me and the radiologist. CHEST ONE VIEW PORTABLE CLINICAL HISTORY: Sepsis COMPARISON STUDY: 06/20/2016 FINDINGS: The cardiac and mediastinal contours are normal. There is no evidence of focal pulmonary consolidation. There is no evidence of failure. No pleural effusions are visualized.[ There is a left subclavian dual-chamber central venous pacemaker present. There are surgical clips at the esophagogastric junction. IMPRESSION: No active disease in the chest. Electronically signed by: Naveen Watts M.D. 07/13/2016 12:41 PM Dictated Date/Time: 07/13/2016 12:41 PM Laboratory Results 07/13/16 12:32 Red Blood Count 4.52, Mean Corpuscular Volume 84.5, Mean Corpuscular Hemoglobin 27.2, Mean Corpuscular Hemoglobin Concent 32.2, Mean Platelet Volume 10.6, Neutrophils (%) (Auto) 63.1, Lymphocytes (%) (Auto) 28.0, Monocytes (%) (Auto) 8.0, Eosinophils (%) (Auto) 0.6, Basophils (%) (Auto) 0.1, Neutrophils # (Auto) 6.16, Lymphocytes # (Auto) 2.74, Monocytes # (Auto) 0.78, Eosinophils # (Auto) 0.06, Basophils # (Auto) 0.01 07/13/16 12:32 Test 07/13/16 12:32 07/13/16 12:44 07/13/16 12:49 White Blood Count 9.77 K/uL (4.8-10.8) Red Blood Count 4.52 M/uL (4.2-5.4) Hemoglobin 12.3 g/dL (12.0-16.0) Hematocrit 38.2 % (37-47) Mean Corpuscular Volume 84.5 fL (80-100) Mean Corpuscular Hemoglobin 27.2 pg (25-34) Mean Corpuscular Hemoglobin Concent 32.2 g/dl (32-36) Platelet Count 188 K/uL (130-400) Mean Platelet Volume 10.6 fL (7.4-10.4) Neutrophils (%) (Auto) 63.1 % Lymphocytes (%) (Auto) 28.0 % Monocytes (%) (Auto) 8.0 % Eosinophils (%) (Auto) 0.6 % Basophils (%) (Auto) 0.1 % Neutrophils # (Auto) 6.16 K/uL (1.4-6.5) Lymphocytes # (Auto) 2.74 K/uL (1.2-3.4) Monocytes # (Auto) 0.78 K/uL (0.11-0.59) Eosinophils # (Auto) 0.06 K/uL (0-0.5) Basophils # (Auto) 0.01 K/uL (0-0.2) RDW Standard Deviation 43.7 fL (36.4-46.3) RDW Coefficient of Variation 14.1 % (11.5-14.5) Immature Granulocyte % (Auto) 0.2 % Immature Granulocyte # (Auto) 0.02 K/uL (0.00-0.02) Erythrocyte Sedimentation Rate 46 mm/hr (0-21) Prothrombin Time 15.3 SECONDS (9.0-12.0) Prothromb Time International Ratio 1.4 (0.9-1.1) Activated Partial Thromboplast Time 27.9 SECONDS (21.0-31.0) Partial Thromboplastin Ratio 1.1 Anion Gap 4.0 mmol/L (3-11) Est Creatinine Clear Calc Drug Dose 33.9 ml/min Estimated GFR () 44.9 Estimated GFR (Non- 38.7 BUN/Creatinine Ratio 17.3 (10-20) Calcium Level 8.5 mg/dl (8.5-10.1) Phosphorus Level 3.3 mg/dl (2.5-4.9) Magnesium Level 2.4 mg/dl (1.8-2.4) Total Bilirubin 0.5 mg/dl (0.2-1) Aspartate Amino Transf (AST/SGOT) 27 U/L (15-37) Alanine Aminotransferase (ALT/SGPT) 34 U/L (12-78) Alkaline Phosphatase 148 U/L (45-117) Total Creatine Kinase 83 U/L (26-192) Creatine Kinase MB 1.4 ng/ml (0.5-3.6) Creatine Kinase MB Ratio 1.7 (0-3.0) Troponin I < 0.015 ng/ml (0-0.045) C-Reactive Protein < 0.29 mg/dl (0-0.29) Pro-B-Type Natriuretic Peptide 261 pg/ml (0-1800) Total Protein 7.8 gm/dl (6.4-8.2) Albumin 3.9 gm/dl (3.4-5.0) Globulin 3.9 gm/dl (2.5-4.0) Albumin/Globulin Ratio 1.0 (0.9-2) Lipase 96 U/L (73-393) Bedside Lactic Acid Venous 1.34 mmol/L (0.90-1.70) Urine Color DK YELLOW Urine Appearance CLEAR (CLEAR) Urine pH 5.0 (4.5-7.5) Urine Specific [place] 1.019 (1.000-1.030) Urine Protein TRACE (NEG) Urine Glucose (UA) NEG (NEG) Urine Ketones TRACE (NEG) Urine Occult Blood NEG (NEG) Urine Nitrite NEG (NEG) Urine Bilirubin NEG (NEG) Urine Urobilinogen NEG (NEG) Urine Leukocyte Esterase SMALL (NEG) Urine WBC (Auto) 5-10 /hpf (0-5) Urine RBC (Auto) 0-4 /hpf (0-4) Urine Hyaline Casts (Auto) 10-30 /lpf (0-5) Urine Epithelial Cells (Auto) >30 /lpf (0-5) Urine Bacteria (Auto) NEG (NEG) Urine Renal Epithelial Cells /lpf (0-5) Laboratory results per my review. Medications Administered Medications (Trade) Dose Ordered Sig/Holden Route Start Time Stop Time Status Last Admin Dose Admin Sodium Chloride (Nss 1000ml) 1,000 ml @ 999 mls/hr Q1H1M ONCE IV 07/13/16 12:12 07/13/16 13:12 DC 07/13/16 12:51 999 MLS/HR Ondansetron HCl 4 mg 4 mg NOW STAT IV 07/13/16 12:21 07/13/16 12:22 DC 07/13/16 12:51 4 MG Ertapenem/Sodium Chloride (Invanz Iv/Nss Ad-Van 50ml) 50 ml @ 100 mls/hr NOW STAT IV 07/13/16 13:00 07/13/16 13:29 DC 07/13/16 13:41 100 MLS/HR ECG Indication: nausea Rate (beats per minute): 61 Rhythm: other (av dual pacemaker) Findings: other (no PVCs) Change: no significant change (compared to June 20 this year) ED Course 1206: The patient was evaluated in room C6. A complete history and physical examination were performed. 1212: Ordered NSS 1000 ml @ 999 mls/hr IV. 1221: Ordered Zofran Inj 4 mg IV. 1300: Ordered Ertapenem 1gm/Sodium Chloride 50 ml @ 100 mls/hr IV. 1328: I reevaluated and updated the patient. 1409: I reevaluated the patient and she is sitting up in bed. The patient verbally expressed understanding and agreement with the treatment plan. The patient will be evaluated for further treatment. 1422: I discussed the patient with Dr. Josette Grimes [facility] packer fuser. He will evaluate the patient for further treatment. Medical Decision Prior records/ancillary studies reviewed. Triage Nursing notes reviewed. Additional history obtained from family. Differential diagnosis: Etiologies such as appendicitis, diverticulitis, PUD, biliary pathology, UTI, pancreatitis, obstruction, mesenteric ischemia, aortic pathology, infections, inflammatory bowel disease, renal colic, as well as others were entertained. The patient is an 81-year-old female who presented to the emergency department for an evaluation at the request of her primary care physician. The patient's family was very concerned because she's been weak and complaining of lower abdominal pain. The patient had frequency and was diagnosed with urinary tract infection recently. She was started on Macrobid because of the sensitivity listed on the patient's urine culture. The patient was feeling worse and was sent to the emergency department at the request of her primary care physician because of multi drug resistant Escherichia coli in the urine. The patient was treated with IV fluids and IV antibiotics. I discussed the patient's laboratory and radiographic studies with her. She was treated with IV antiemetics. On subsequent reevaluation she was feeling somewhat better. Because the patient's sensitivity profile of her urine culture. I discussed her case with the on-call [facility] hospitalist group. They've agreed to evaluate the patient in the emergency department for further management and disposition. Consults Time Called: 1415 Consulting Physician: Dr. Josette MCCANN packer fuser Returned Call: 1422 (in person) I discussed the patient with Dr. Josette MCCANN packer fuser. He will evaluate the patient for further treatment. Impression Primary Impression: UTI (urinary tract infection) Additional Impressions: Abdominal pain Nausea Scribe Attestation The scribe's documentation has been prepared under my direction and personally reviewed by me in its entirety. I confirm that the note above accurately reflects all work, treatment, procedures, and medical decision making performed by me. Departure Information Dispostion Being Evaluated By Hospitalist Referrals Poli Baum M.D. (PCP) Patient Instructions My [facility] Problem Qualifiers Primary Impression: UTI (urinary tract infection) Urinary tract infection type: site unspecified Hematuria presence: without hematuria Qualified Codes: N39.0 - Urinary tract infection, site not specified Additional Impressions: Abdominal pain Abdominal location: lower abdomen, unspecified Qualified Codes: R10.30 - Lower abdominal pain, unspecified
[2016-07-13] MEDS ORDERED: ONDANSETRON INJ 2 MG/ML 2 ML VIAL IV STA (12:21)
--- NOTE | 2016-07-13 12:43 | DIAGNOSTIC IMAGING REPORT ---
CHEST ONE VIEW PORTABLE CLINICAL HISTORY: Sepsis COMPARISON STUDY: 06/20/2016 FINDINGS: The cardiac and mediastinal contours are normal. There is no evidence of focal pulmonary consolidation. There is no evidence of failure. No pleural effusions are visualized.[ There is a left subclavian dual-chamber central venous pacemaker present. There are surgical clips at the esophagogastric junction. IMPRESSION: No active disease in the chest. Electronically signed by: Naveen Watts M.D. 07/13/2016 12:41 PM Dictated Date/Time: 07/13/2016 12:41 PM
[2016-07-13 12:59] LABS: BASO % 0.1 %; BASO ABS # 0.01 K/uL (0-0.2); COMPLETE YES; EOS % 0.6 %; HEMATOCRIT 38.2 % (37-47); IG% 0.2 %; LYMPH ABS # 2.74 K/uL (1.2-3.4); MEAN CELL VOLUME 84.5 fL (80-100); MEAN CORPUSCULAR HEMOGLOBIN 27.2 pg (25-34); MEAN CORPUSCULAR HGB CONC 32.2 g/dl (32-36); MEAN PLATELET VOLUME 10.6 fL (7.4-10.4); NEUT % 63.1 %; PLATELET COUNT 188 K/uL (130-400); RED BLOOD COUNT 4.52 M/uL (4.2-5.4); WHITE BLOOD COUNT 9.77 K/uL (4.8-10.8)
[2016-07-13] MEDS ORDERED: ERTAPENEM IV 1 GM in SODIUM CHLOR 0.9% AD-VAN 50ML IV STA (13:00)
[2016-07-13 13:08] LABS: INR 1.4 (0.9-1.1); PARTIAL THROMBOPLASTIN RATIO 1.1; PROTHROMBIN TIME (PATIENT) 15.3 SECONDS (9.0-12.0)
[2016-07-13 13:10] LABS: URINE APPEARANCE CLEAR (CLEAR); URINE BILIRUBIN NEG (NEG); URINE COLOR DK YELLOW; URINE EPITHELIAL CELL AUTO >30 /lpf (0-5); URINE NITRITE NEG (NEG); URINE SPECIFIC GRAVITY 1.019 (1.000-1.030); UROBILINOGEN NEG (NEG); ZZURINE CULT IF INDIC CATH NO
[2016-07-13 13:14] LABS: MANUAL MICROSCOPIC REQUIRED? NO; REVIEW REQ? YES
[2016-07-13 13:24] LABS: BLOOD UREA NITROGEN 22 mg/dl (7-18); BUN/CREATININE RATIO 17.3 (10-20); CALCIUM 8.5 mg/dl (8.5-10.1); CARBON DIOXIDE 33 mmol/L (21-32); CHLORIDE 102 mmol/L (98-107); GLUCOSE 130 mg/dl (70-99); MAGNESIUM 2.4 mg/dl (1.8-2.4); POTASSIUM 3.5 mmol/L (3.5-5.1); SODIUM 139 mmol/L (136-145)
[2016-07-13 13:30] LABS: ALT/SGPT 34 U/L (12-78); AST/SGOT 27 U/L (15-37); C-REACTIVE PROTEIN < 0.29 mg/dl (0-0.29)
[2016-07-13] MEDS ORDERED: PANT40TA PO (13:30)
[2016-07-13 13:31] LABS: ALKALINE PHOSPHATASE 148 U/L (45-117); CKMB/CK RATIO 1.7 (0-3.0); PHOSPHORUS 3.3 mg/dl (2.5-4.9)
[2016-07-13] MEDS ORDERED: DEXTROSE 50% 50 ML SYR IV PRN (15:30)
[2016-07-13] MEDS ORDERED: ACETAMINOPHEN 325 MG TAB PO PRN (15:30)
[2016-07-13] MEDS ORDERED: GLUCOSE 10 TABS/TUBE PO PRN (15:30)
[2016-07-13] MEDS ORDERED: POLYETHYLENE (MIRALAX) 17 GM PACK PO PRN (15:30)
[2016-07-13] MEDS ORDERED: GLUCAGON FOR INJ 1 MG VIAL SQ PRN (15:30)
[2016-07-13] MEDS ORDERED: ONDANSETRON INJ 2 MG/ML 2 ML VIAL IV PRN (15:30)
[2016-07-13] MEDS ORDERED: ALUMINUM/MAGNESIUM/SIMETH (MAALOX MAX) 30 ML UDC PO PRN (15:30)
[2016-07-13] MEDS ORDERED: GLUCOSE 40% GEL 15 GM TUBE PO PRN (15:30)
[2016-07-13] MEDS ORDERED: MAGNESIUM HYDROXIDE SUSP 30 ML UDC PO PRN (15:30)
--- NOTE | 2016-07-13 16:10 | History and Physical ---
History & Physical Date & Time of Service: July 13, 2016 at 16:05 Chief Complaint: Sick Stomach X1 Wk, Chills, Uti, Disposition Primary Care Physician: Poli Baum M.D. History of Present Illness Source: patient, family Ms. Jameson is an 81 y/o female with PMHx of Complete HB S/P Dual Chamber Pacemaker, CAD S/P LAD Infarct, Diastolic CHF, LV Apical Thrombus with H/O CVA, T2DM, HLD, HTN, and Lewy Body Dementia who presents to the ED for abdominal pain and nausea x 1 week. Patient is a limited historian and denied all symptoms. slightly a poor historian in regards to specific details but supplied majority of HPI. Patient had urinalysis with cx on 06/27 revealing MDR E. coli and concern for ESBL. She has add recurrent E. coli UTIs which have appeared to become more resistant with each analysis. She was placed on Macrobid BID for the last 10 days. However, urinary frequency, dysuria, and dark urine progressively worsened. states patient has been more confused lately with a decreased appetite and oral intake. She was seen by her PCP today who obtained a new culture and recommended hospitalization as previous cx with only IV antibiotic options remaining. Reported fevers predominantly of 102 which have improved since "fever breaking" a couple days ago producing diaphoresis. He states he hasn't documented any further fevers since. Family reports a distended abdomen that increases with what they believe is urinary retention. They deny H/O U/S to evaluate for ascites or H/O liver disease. This may be related to diastolic dysfunction? states there is a significant FMHx of ovarian cancer in her mother, 2 sisters, and aunt and reports she still has one ovary. Documentation states that she may have had a CHELA with BSO but this is unclear. He associated an approx 16 lbs weight loss over the past week. Per PCP note, mentions increased glucose readings at about 200 and has been increasing insulin dosing at home. In addition, patient was evaluated in [place] recently for BRBPR however family mentioned stool in the stomach and states she is "backing up" relating this to constipation? PCP note states she is scheduled for flex sig in July for further evaluation. In the ED, she is afebrile without leukocytosis. Lactic is unremarkable. CXR confirms pacer but no acute processes or evidence of failure. EKG reveals a paced rhythm. She was treated with Ertapenem. Patient reporting some improvement but again denies symptoms? Her BPs are stable but PCP note reveals hypotension at 100/60. Past Medical/Surgical History MEDICAL: 1. Complete AV Block S/P Pacemaker 2. CAD S/P LAD Infarct 3. T2DM 4. HTN 5. HLD 6. LV Apical Thrombus 7. CVA 8. Lewy Body Dementia 9. Diastolic CHF SURGERY: 1. S/P Cholecystectomy 2. S/P Appendectomy 3. S/P CHELA with BSO vs Unilateral Oophorectomy? 4. S/P Laparoscopies for Adhesion Lysis Family History Cancer Heart disease Hypertension Lung disease Social History Smoking Status: Never Smoker Smokeless Tobacco Use: No Alcohol Use: none Drug Use: none Marital Status: Occupational Status: retired Allergies Coded Allergies: Metformin (Verified Allergy, Mild, UNKNOWN, 07/13/16) Aspirin (Verified Allergy, Unknown, Unknown rxn, 07/13/16) Propoxyphene (Verified Allergy, Unknown, Unknown rxn, 07/13/16) Home Medications Scheduled Amlodipine (Norvasc), 5 MG PO DAILY Atorvastatin (Lipitor), 40 MG PO HS Docusate Sodium (Docusate Sodium), 200 MG PO HS Furosemide (Lasix), 80 MG PO DAILY Glyburide (Micronase), 5 MG PO DAILY Insulin Isophan/Regular (Humulin 70/30), 30 SC QAM Insulin Isophan/Regular (Humulin 70/30), 12 UNITS SC QPM Isosorbide Mononitrate Ext Rel (Imdur Ext Rel), 30 MG PO QAM Lisinopril (Zestril), 5 MG PO DAILY Metoprolol Succinate (Toprol Xl), 50 MG PO DAILY Olanzapine (Zyprexa), 15 MG PO DAILY Pantoprazole (Protonix), 40 MG PO DAILY Pregabalin (Lyrica), 50 MG PO QAM Pregabalin (Lyrica), 100 MG PO HS Sertraline (Zoloft), 100 MG PO DAILY Trazodone Hcl (Trazodone), 100 MG PO HS Warfarin Sod (Jantoven), 4 MG PO Q2D Warfarin Sod (Jantoven), 2 MG PO Q2D Review of Systems ROS limited as patient reports no for every question asked. Family at bedside reports she was complaining of abdominal pain, nausea without emesis, fevers ( approx. 102 and normalizing), urinary frequency, dysuria, darkened urine. Physical Exam Vital Signs Date Time Temp Pulse Resp B/P Pulse Ox O2 Delivery O2 Flow Rate FiO2 07/13/16 15:35 66 16 142/60 98 Nasal Cannula 2.0 07/13/16 14:50 97 Nasal Cannula 2.0 07/13/16 14:49 60 16 120/58 88 Room Air 07/13/16 13:46 77 16 120/58 91 Room Air 07/13/16 12:51 98 Room Air 07/13/16 11:54 36.8 68 20 104/59 98 Room Air General Appearance: WD/WN, no apparent distress Head: normocephalic, atraumatic Eyes: sclerae normal ENT: + pertinent finding (chronic PAIUTE-SHOSHONE) Neck: supple, no JVD, trachea midline Respiratory/Chest: lungs clear, no respiratory distress, no accessory muscle use, + decreased breath sounds Cardiovascular: regular rate, rhythm, no gallop, no murmur, + pertinent finding (distant heart sounds) Abdomen/GI: normal bowel sounds, soft, + tenderness (suprapubic tenderness and LLQ tenderness), + distended, + pertinent finding (tympanic to percussion) Back: normal inspection, no CVA tenderness Extremities/Musculoskelatal: no calf tenderness, + swelling (nonpitting edema of lower extremities L > R) Neurologic/Psych: alert Skin: normal color, warm/dry Diagnostics Laboratory Results Results Past 24 Hours Test 07/13/16 12:32 07/13/16 12:44 07/13/16 12:49 Range/Units White Blood Count 9.77 4.8-10.8 K/uL Red Blood Count 4.52 4.2-5.4 M/uL Hemoglobin 12.3 12.0-16.0 g/dL Hematocrit 38.2 37-47 % Mean Corpuscular Volume 84.5 80-100 fL Mean Corpuscular Hemoglobin 27.2 25-34 pg Mean Corpuscular Hemoglobin Concent 32.2 32-36 g/dl Platelet Count 188 130-400 K/uL Mean Platelet Volume 10.6 7.4-10.4 fL Neutrophils (%) (Auto) 63.1 % Lymphocytes (%) (Auto) 28.0 % Monocytes (%) (Auto) 8.0 % Eosinophils (%) (Auto) 0.6 % Basophils (%) (Auto) 0.1 % Neutrophils # (Auto) 6.16 1.4-6.5 K/uL Lymphocytes # (Auto) 2.74 1.2-3.4 K/uL Monocytes # (Auto) 0.78 0.11-0.59 K/uL Eosinophils # (Auto) 0.06 0-0.5 K/uL Basophils # (Auto) 0.01 0-0.2 K/uL RDW Standard Deviation 43.7 36.4-46.3 fL RDW Coefficient of Variation 14.1 11.5-14.5 % Immature Granulocyte % (Auto) 0.2 % Immature Granulocyte # (Auto) 0.02 0.00-0.02 K/uL Erythrocyte Sedimentation Rate 46 0-21 mm/hr Prothrombin Time 15.3 9.0-12.0 SECONDS Prothromb Time International Ratio 1.4 0.9-1.1 Activated Partial Thromboplast Time 27.9 21.0-31.0 SECONDS Partial Thromboplastin Ratio 1.1 Sodium Level 139 136-145 mmol/L Potassium Level 3.5 3.5-5.1 mmol/L Chloride Level 102 98-107 mmol/L Carbon Dioxide Level 33 21-32 mmol/L Anion Gap 4.0 3-11 mmol/L Blood Urea Nitrogen 22 7-18 mg/dl Creatinine 1.30 0.60-1.20 mg/dl Est Creatinine Clear Calc Drug Dose 33.9 ml/min Estimated GFR () 44.9 Estimated GFR (Non- 38.7 BUN/Creatinine Ratio 17.3 10-20 Random Glucose 130 70-99 mg/dl Calcium Level 8.5 8.5-10.1 mg/dl Phosphorus Level 3.3 2.5-4.9 mg/dl Magnesium Level 2.4 1.8-2.4 mg/dl Total Bilirubin 0.5 0.2-1 mg/dl Aspartate Amino Transf (AST/SGOT) 27 15-37 U/L Alanine Aminotransferase (ALT/SGPT) 34 12-78 U/L Alkaline Phosphatase 148 45-117 U/L Total Creatine Kinase 83 26-192 U/L Creatine Kinase MB 1.4 0.5-3.6 ng/ml Creatine Kinase MB Ratio 1.7 0-3.0 Troponin I < 0.015 0-0.045 ng/ml C-Reactive Protein < 0.29 0-0.29 mg/dl Pro-B-Type Natriuretic Peptide 261 0-1800 pg/ml Total Protein 7.8 6.4-8.2 gm/dl Albumin 3.9 3.4-5.0 gm/dl Globulin 3.9 2.5-4.0 gm/dl Albumin/Globulin Ratio 1.0 0.9-2 Lipase 96 73-393 U/L Bedside Lactic Acid Venous 1.34 0.90-1.70 mmol/L Urine Color DK YELLOW Urine Appearance CLEAR CLEAR Urine pH 5.0 4.5-7.5 Urine Specific [place] 1.019 1.000-1.030 Urine Protein TRACE NEG Urine Glucose (UA) NEG NEG Urine Ketones TRACE NEG Urine Occult Blood NEG NEG Urine Nitrite NEG NEG Urine Bilirubin NEG NEG Urine Urobilinogen NEG NEG Urine Leukocyte Esterase SMALL NEG Urine WBC (Auto) 5-10 0-5 /hpf Urine RBC (Auto) 0-4 0-4 /hpf Urine Hyaline Casts (Auto) 10-30 0-5 /lpf Urine Epithelial Cells (Auto) >30 0-5 /lpf Urine Bacteria (Auto) NEG NEG Urine Renal Epithelial Cells 0-5 /lpf Microbiology Results 07/13/16 Blood Culture, Received Pending 07/13/16 Blood Culture, Received Pending 07/13/16 Urine Culture, Received Pending Diagnostic Radiology CHEST ONE VIEW PORTABLE CLINICAL HISTORY: Sepsis COMPARISON STUDY: 06/20/2016 FINDINGS: The cardiac and mediastinal contours are normal. There is no evidence of focal pulmonary consolidation. There is no evidence of failure. No pleural effusions are visualized.[ There is a left subclavian dual-chamber central venous pacemaker present. There are surgical clips at the esophagogastric junction. IMPRESSION: No active disease in the chest. EKG AV dual-paced rhythm Abnormal ECG When compared with ECG of 20-JUN-2016 13:04, No significant change was found Confirmed by Konrad Rivers ([id number]) on 07/13/2016 1:51:27 PM Impression Assessment and Plan Ms. Jameson is an 81 y/o female with PMHx of Complete HB S/P Dual Chamber Pacemaker, CAD S/P LAD Infarct, Diastolic CHF, LV Apical Thrombus with H/O CVA, T2DM, HLD, HTN, and Lewy Body Dementia who presents to the ED for abdominal pain and nausea x 1 week. ESBL - MDR E. Coli UTI: Contact Precautions - Cx from 06/27 - Tx with Macrobid BID x 10 days with progressive symptoms - Ertapenem 1 g daily - CT Abd/Pelvis - R/O stone - question ascites? any organ dysfunction; question of significant family history of ovarian cancer? unsure if patient has remaining ovaries? - Consult ID - likely needs PICC line and extended coverage - appreciate recommendations Chronic Diastolic CHF with B/L Lower Extremity Edema: - Gentle hydration at 75 mL/hr x 2 bags - no acute signs of failure - does have non-pitting edema of lower extremities that family feels is a bit more than baseline - Held Lasix 80 mg daily may need reinstituted in AM -- Per [employer] she was started on Metolazone 2.5 mg twice weekly PRN to take one hour prior to Lasix - Family reports intermittent weeping legs but current no weeping appreciated LV Apical Thrombus with H/O CVA: Subtherapeutic INR - Warfarin alternating Q2D with 2 mg and 4 mg - monitor INR Complete HB S/P Pacer, CAD S/P LAD Infarct, and HTN: Follows with Dr. Gamble - Per PCP note - hypotensive in office and plan is to D/C Norvasc - held at this time - Atorvastatin 40 mg daily - Imdur 30 mg daily - Lisinopril 5 mg daily and Metoprolol 50 mg daily T2DM: Hyperglycemia - Hold home regimen at this time and implement SSI - may need adjustments or return to home dosing if able Bowel Regimen: Constipation with H/O BRBPR: - Hgb stable - continue to monitor - CT Abd/Pelvis reveals moderate fecal retention - Utilizes Mirlax daily and recently prescribed Amitiza (hasn't started this yet ) - Outpatient Flex Sig scheduled with Dr. Nunez Lewy Body Dementia/Depression: - Zyprexa 15 mg daily and Zoloft 100 mg daily DVT Prophylaxis: Coumadin Code Status: FULL RESUSCITATION Disposition: - PT/OT evaluations - patient from home with family assistance and utilizes walker to ambulate -- Last fall approx. 1 month ago - unwitnessed - states she passed out though but was in the basement and found her own the floor -- Also reporting that she has had chronic imbalance issues -- Family questions pacemaker dysfunction - hasn't been interrogated since July - If PICC needed (likely) - needs consented - Did place on tele overnight - anticipate if no acute events can be transitioned to Med/Surg - concern for outpatient hypotensive readings and setting of UTI Pt seen/examined independently - discussed case with pt and PA - personally reviewed admission orders and note per PA 81 y/o F with complex history including CHF, CAD, CVA, dementia - has had recurrent UTIs with SBL - recently treated with Macrobid as outpt and did not have an adequate response - sent to the hospital by her primary MD to receive IV antibiotics. Also noted that she has had BRBPR and is scheduled for a flex sig as it may be related to constipation. OE Awake/ responsive S1, 2 R - no audible murmur CTAB NT - distention is present + LE edema P: Discussed with pharmacist and based on sensitivity we will start Ertapenem. She may require treatment for an extended period so that we will consult ID and consider PICC placement. As she did not present with acute clinical changes, we will continue her home medications. A CT abdomen was ordered due to distention, reports of recent bleeding and history of oophorectomy Family were present at the time of admission Level of Care Telemetry Resuscitation Status FULL RESUSCITATION VTE Prophylaxis VTE Risk Assessment Done? Y/N: Yes Risk Level: Moderate
--- NOTE | 2016-07-13 16:32 | DIAGNOSTIC IMAGING REPORT ---
CT SCAN OF THE ABDOMEN AND PELVIS WITHOUT IV CONTRAST CLINICAL HISTORY: Recurrent urinary tract infections. Generalized abdominal pain. COMPARISON STUDY: Abdominal radiograph dated 06/20/2016. TECHNIQUE: CT scan of the abdomen and pelvis is performed from the lung bases to the proximal femora. Images are reviewed in the axial, sagittal, and coronal planes. IV contrast was not administered for this examination as per the referring clinician. Automated dose control exposure was utilized. CT DOSE: 1751.34 mGy.cm FINDINGS: Lung bases: The heart is mildly enlarged and there is trace pericardial fluid. Pacemaker leads are noted. The lung bases are clear. Liver: The unenhanced liver is normal in size, contour, and attenuation. There is no intrahepatic biliary ductal dilatation. Gallbladder: Surgically absent noting clips in the gallbladder fossa. Spleen: Normal in size and attenuation. Pancreas: There is near complete fatty atrophy of the pancreas. The unenhanced pancreas is otherwise grossly unremarkable. Adrenal glands: Unremarkable. Kidneys: The unenhanced kidneys are atrophic and without hydronephrosis. There are no renal calculi identified. There is no evidence of contour deforming renal mass lesion. Abdominal vasculature: The abdominal aorta is normal in course and caliber noting moderate to advanced atherosclerotic calcification. Stomach and bowel: There is a small to moderate hiatal hernia. Postoperative change is seen in the proximal stomach. The duodenum is normal in configuration. There is no bowel obstruction. There is moderate colonic fecal retention. The appendix is not visualized. Peritoneum: Numerous surgical clips are seen throughout the upper abdomen. There is no intraperitoneal free air or abdominal ascites. Lymphadenopathy: None. Pelvic viscera: Although decompressed, the bladder wall appears circumferentially thickened. The uterus is surgically absent. No adnexal lesion is seen. Skeletal structures: The skeletal structures are osteopenic. There is mild to moderate lumbosacral spondylosis. Arthritic change is also seen in the hips. No lytic or blastic lesions are seen. IMPRESSION: 1. Although decompressed, the bladder wall appears circumferentially thickened. Correlation with clinical findings and urinalysis will be required. 2. No renal calculi are identified. 3. Moderate to severe constipation. No bowel obstruction is seen. 4. Mild cardiomegaly. 5. Numerous surgical clips are seen throughout the upper abdomen. Correlation the patient's operative history will be required. 6. Additional findings as above. Electronically signed by: Sam Lares M.D. 07/13/2016 4:30 PM Dictated Date/Time: 07/13/2016 4:25 PM
[2016-07-13 17:10] VITALS: BP 151/77; PULSE 79; TEMP 36.7; O2SAT 98; Ht 152.4 cm; Wt 83.2 kg
[2016-07-13] MEDS: SODIUM CHLORIDE 0.9% 1000ML 1,000 ML IV SCH (18:00)
[2016-07-13] MEDS: INSULIN ASPART 100 UNITS/ML 3 ML PEN SC SCH ×2 (18:30→21:41)
[2016-07-13] MEDS: WARFARIN SOD 2 MG TAB PO SCH (19:09)
[2016-07-13 19:29] VITALS: BP 134/74; PULSE 73; TEMP 36.9; O2SAT 92
[2016-07-13] MEDS: PREGABALIN 100 MG CAP PO SCH (20:12)
[2016-07-13] MEDS: TRAZODONE HCL 100 MG TAB PO SCH (20:12)
[2016-07-13] MEDS: DOCUSATE SODIUM 100 MG CAP PO SCH (20:13)
[2016-07-13] MEDS: ATORVASTATIN 40 MG TAB PO SCH (20:13)
[2016-07-13 23:55] VITALS: BP 130/65; PULSE 65; TEMP 36.7; O2SAT 91
[2016-07-14 04:44] VITALS: BP 146/69; PULSE 60; TEMP 36.8; O2SAT 92
[2016-07-14] MEDS: SODIUM CHLORIDE 0.9% 1000ML 1,000 ML IV SCH (05:25)
--- NOTE | 2016-07-14 07:38 | Hospitalist Progress Note ---
Hospitalist Progress Note Date of Service July 14, 2016. Subjective Pt evaluation today including: conversation w/ patient, physical exam, chart review, lab review, review of studies Pain: Mild lower abdominal pain PO Intake: Good Voiding: no voiding problems The patient was seen and examined this morning. Pt reports doing well today. She complains of mild lower abdominal pain and states she needs to use the bathroom to urinate. The patient had miralax this morning and feels like she has a lot of gas which is passing, she has not had a bowel movement in 3 days. She denies change in mental status, weakness, fever, chills, sweats, or dysuria or hematuria. ROS: 10 point ROS was reviewed and is otherwise negative. Objective Vital Signs Date Time Temp Pulse Resp B/P Pulse Ox O2 Delivery O2 Flow Rate FiO2 07/14/16 04:44 36.8 60 18 146/69 92 Room Air 07/14/16 04:00 Nasal Cannula 2.0 07/13/16 23:59 Nasal Cannula 2.0 07/13/16 23:55 36.7 65 18 130/65 91 Room Air 07/13/16 20:00 Nasal Cannula 2.0 07/13/16 19:29 36.9 73 18 134/74 92 Room Air 07/13/16 17:10 36.7 79 18 151/77 98 Nasal Cannula 2.0 07/13/16 16:30 77 16 138/66 98 Nasal Cannula 2.0 07/13/16 15:35 66 16 142/60 98 Nasal Cannula 2.0 07/13/16 14:50 97 Nasal Cannula 2.0 07/13/16 14:49 60 16 120/58 88 Room Air 07/13/16 13:46 77 16 120/58 91 Room Air 07/13/16 12:51 98 Room Air 07/13/16 11:54 36.8 68 20 104/59 98 Room Air Physical Exam General Appearance: WD/WN, no apparent distress, + obese, + pertinent finding ( slow speaking and slightly hard of hearing) Eyes: PERRL, EOMI ENT: hearing grossly normal, pharynx normal Neck: supple, no JVD Respiratory/Chest: chest non-tender, lungs clear, no respiratory distress, no accessory muscle use Cardiovascular: regular rate, rhythm, no JVD, no murmur Abdomen: normal bowel sounds, soft, + distended, + tenderness (mild, lower/ suprapubic abdomen with palpation) Extremities: non-tender, no pedal edema, no calf tenderness Neurologic/Psychiatric: alert, normal mood/affect, oriented x 3 Skin: normal color, warm/dry Laboratory Results Last 24 Hours Test 07/13/16 12:32 07/13/16 12:44 07/13/16 12:49 07/13/16 17:09 White Blood Count 9.77 K/uL Red Blood Count 4.52 M/uL Hemoglobin 12.3 g/dL Hematocrit 38.2 % Mean Corpuscular Volume 84.5 fL Mean Corpuscular Hemoglobin 27.2 pg Mean Corpuscular Hemoglobin Concent 32.2 g/dl Platelet Count 188 K/uL Mean Platelet Volume 10.6 fL Neutrophils (%) (Auto) 63.1 % Lymphocytes (%) (Auto) 28.0 % Monocytes (%) (Auto) 8.0 % Eosinophils (%) (Auto) 0.6 % Basophils (%) (Auto) 0.1 % Neutrophils # (Auto) 6.16 K/uL Lymphocytes # (Auto) 2.74 K/uL Monocytes # (Auto) 0.78 K/uL Eosinophils # (Auto) 0.06 K/uL Basophils # (Auto) 0.01 K/uL RDW Standard Deviation 43.7 fL RDW Coefficient of Variation 14.1 % Immature Granulocyte % (Auto) 0.2 % Immature Granulocyte # (Auto) 0.02 K/uL Erythrocyte Sedimentation Rate 46 mm/hr Prothrombin Time 15.3 SECONDS Prothromb Time International Ratio 1.4 Activated Partial Thromboplast Time 27.9 SECONDS Partial Thromboplastin Ratio 1.1 Sodium Level 139 mmol/L Potassium Level 3.5 mmol/L Chloride Level 102 mmol/L Carbon Dioxide Level 33 mmol/L Anion Gap 4.0 mmol/L Blood Urea Nitrogen 22 mg/dl Creatinine 1.30 mg/dl Est Creatinine Clear Calc Drug Dose 33.9 ml/min Estimated GFR () 44.9 Estimated GFR (Non- 38.7 BUN/Creatinine Ratio 17.3 Random Glucose 130 mg/dl Calcium Level 8.5 mg/dl Phosphorus Level 3.3 mg/dl Magnesium Level 2.4 mg/dl Total Bilirubin 0.5 mg/dl Aspartate Amino Transf (AST/SGOT) 27 U/L Alanine Aminotransferase (ALT/SGPT) 34 U/L Alkaline Phosphatase 148 U/L Total Creatine Kinase 83 U/L Creatine Kinase MB 1.4 ng/ml Creatine Kinase MB Ratio 1.7 Troponin I < 0.015 ng/ml C-Reactive Protein < 0.29 mg/dl Pro-B-Type Natriuretic Peptide 261 pg/ml Total Protein 7.8 gm/dl Albumin 3.9 gm/dl Globulin 3.9 gm/dl Albumin/Globulin Ratio 1.0 Lipase 96 U/L Bedside Lactic Acid Venous 1.34 mmol/L Urine Color DK YELLOW Urine Appearance CLEAR Urine pH 5.0 Urine Specific [place] 1.019 Urine Protein TRACE Urine Glucose (UA) NEG Urine Ketones TRACE Urine Occult Blood NEG Urine Nitrite NEG Urine Bilirubin NEG Urine Urobilinogen NEG Urine Leukocyte Esterase SMALL Urine WBC (Auto) 5-10 /hpf Urine RBC (Auto) 0-4 /hpf Urine Hyaline Casts (Auto) 10-30 /lpf Urine Epithelial Cells (Auto) >30 /lpf Urine Bacteria (Auto) NEG Urine Renal Epithelial Cells /lpf Bedside Glucose 110 mg/dl Test 07/13/16 21:28 07/14/16 04:44 07/14/16 06:25 Bedside Glucose 120 mg/dl 111 mg/dl Assessment and Plan Ms. Jameson is an 81 y/o female with PMHx of Complete HB S/P Dual Chamber Pacemaker, CAD S/P LAD Infarct, Diastolic CHF, LV Apical Thrombus with H/O CVA, T2DM, HLD, HTN, and Lewy Body Dementia who presents to the ED for abdominal pain and nausea x 1 week. ESBL - MDR E. Coli UTI: Contact Precautions - Cx from 06/27 - Tx with Macrobid BID x 10 days with progressive symptoms - Cont Ertapenem 1 g daily (day #2) - CT Abd/Pelvis - the bladder wall appears circumferentially thickened, No renal calculi, moderate to severe constipation w/o bowel obstruction, mild cardiomegaly - Consult ID - likely needs PICC line and extended coverage - appreciate recs Chronic Diastolic CHF with B/L Lower Extremity Edema: - Gentle hydration overnight - Held Lasix 80 mg daily - appears euvolemic currently without JVD and no peripheral edema, stop IVFs and can hold lasix today. Can restart metalazone as an outpatient twice weekly as previously prescribed LV Apical Thrombus with H/O CVA: Subtherapeutic INR - Warfarin alternating Q2D with 2 mg and 4 mg - Follow coags Complete HB S/P Pacer, CAD S/P LAD Infarct, and HTN: Follows with Dr. Gamble - Per PCP note - hypotensive in office and plan is to D/C Norvasc - held at this time - Atorvastatin 40 mg daily - Imdur 30 mg daily - Lisinopril 5 mg daily and Metoprolol 50 mg daily T2DM: Hyperglycemia - Hold home regimen at this time and implement SSI - may need adjustments or return to home dosing if able Bowel Regimen: Constipation with H/O BRBPR: - Hgb stable - continue to monitor - CT Abd/Pelvis reveals moderate fecal retention - mirilax on prn, will order a 1x dulcolax suppository. - Outpatient Flex Sig scheduled with Dr. Nunez Lewy Body Dementia/Depression: - Zyprexa 15 mg daily and Zoloft 100 mg daily DVT Prophylaxis: Coumadin Code Status: FULL RESUSCITATION Disposition: PT/OT to see- uses walker for ambulation, lives at home with , will likely need PICC, transfer to med/surg
[2016-07-14 07:46] LABS: HEMATOCRIT 35.3 % (37-47); MEAN CELL VOLUME 85.7 fL (80-100); MEAN CORPUSCULAR HEMOGLOBIN 26.9 pg (25-34); MEAN CORPUSCULAR HGB CONC 31.4 g/dl (32-36); MEAN PLATELET VOLUME 10.8 fL (7.4-10.4); PLATELET COUNT 150 K/uL (130-400); RED BLOOD COUNT 4.12 M/uL (4.2-5.4); WHITE BLOOD COUNT 6.49 K/uL (4.8-10.8)
[2016-07-14 08:03] LABS: INR 1.6 (0.9-1.1); PROTHROMBIN TIME (PATIENT) 17.3 SECONDS (9.0-12.0)
[2016-07-14 08:04] VITALS: BP 150/77; PULSE 80; TEMP 36.9; O2SAT 96
[2016-07-14 08:25] LABS: BUN/CREATININE RATIO 21.6 (10-20); MAGNESIUM 2.3 mg/dl (1.8-2.4); POTASSIUM 3.9 mmol/L (3.5-5.1)
[2016-07-14] MEDS: INSULIN ASPART 100 UNITS/ML 3 ML PEN SC SCH ×4 (08:43→21:26)
[2016-07-14] MEDS: POLYETHYLENE (MIRALAX) 17 GM PACK PO SCH (08:45)
[2016-07-14] MEDS: PREGABALIN 50 MG CAP PO SCH (08:45)
[2016-07-14] MEDS: LISINOPRIL 5 MG TAB PO SCH (08:46)
[2016-07-14] MEDS: ISOSORBIDE MONONITRATE 30 MG TABCR PO SCH (08:46)
[2016-07-14] MEDS: OLANZAPINE PO SCH ×2 (08:46)
[2016-07-14] MEDS: PANTOprazole SOD 40 MG TAB PO SCH (08:47)
[2016-07-14] MEDS: SERTRALINE HCL 100 MG TAB PO SCH (08:47)
[2016-07-14] MEDS: METOPROLOL SUCC 50MG EXT REL TAB PO SCH (08:47)
[2016-07-14 08:58] LABS: CALCIUM 7.7 mg/dl (8.5-10.1)
[2016-07-14] MEDS ORDERED: OLANZAPINE 15 MG PO SCH (09:00)
[2016-07-14] MEDS ORDERED: AMLODIPINE BESYLATE 5 MG TAB PO SCH (09:00)
[2016-07-14 09:49] LABS: ESTIMATED AVERAGE GLUCOSE 200 mg/dl; HA1C FLAG Normal (Normal)
--- NOTE | 2016-07-14 09:58 | Clinical Documentation Query ---
CLINICAL DOCUMENTATION QUERY Dr. LUO, In your clinical opinion is this patient being managed for: ( ) ZOHRA on CKD, stage 3 ( x ) CKD stage 3 (only) ( ) Other explanation of clinical findings (Please Explain) ( ) Unable to determine (Please Define) ( ) Need to Discuss ( ) Not Agree The medical record reflects the following clinical findings, treatment, and risk factors. Clinical Indicators: 81 yo female presenting with UTI. Presenting Cr 1.3 which has trended down to Cr 1.0. Review of historical GFR reveals range of 38.7-53.2. Treatment: IV fluids, IV invanz, manage comorbid conditions, serial PRP's Risk Factors: chronic diastolic CHF, DM, HTN, CVA, dehydration Please clarify and document your clinical opinion in the progress notes and discharge summary. Terms such as "probable", "suspected", "likely", "questionable", "possible", or "still to be ruled out" are acceptable. IF IN AGREEMENT, YOU MUST DOCUMENT ABOVE DIAGNOSTIC STATEMENT IN DAILY PROGRESS NOTES AND DISCHARGE SUMMARY. This document is not part of the patient's record. Thank You, Naomie George, RN [phone]
--- NOTE | 2016-07-14 11:44 | Medical Consult ---
Consultation Date of Consultation: July 14, 2016. Attending Physician: Gagandeep Negron D.O. Reason for Consultation: ESBL E. Coli UTI History of Present Illness Patient is an 81 year old female who presents to the emergency department with complaints of a persistent illness including nausea and increased urinary frequency and cloudiness along with abdominal pain. The patient does have history of recurrent urinary tract infection. Most recently, the patient had ESBL producing E coli in May. She did have another E coli UTI within the past couple of months, but that was a pansensitive E coli. As an outpatient. The patient was treated with p.o. Macrobid for her most recent urinary tract infection. Her outpatient records were reviewed in detail along with her inpatient records today. It is noted that she had minimal improvement on p.o. Macrobid. Therefore, she was admitted to the hospital for IV antibiotic therapy.Since admission, the patient did have repeat urine and blood cultures. Both of these are pending currently. Her white blood cell count on admission was 9.77. ESR was 46, and C reactive protein was less than 0.29. Her creatinine was mildly elevated at 1.3 upon admission. She did have an abdominal /pelvic CT scan which showed bladder wall thickening, but otherwise no renal calculi or hydronephrosis. The patient was placed on IV ertapenem on admission, and she states that she has been improving overall. She is starting to feel better. She feels that her abdominal pain is less, and she has not had any fever, sweats, or chills since admission. Past Medical/Surgical History Medical Problems: (1) Abdominal pain Status: Acute (2) Nausea Status: Acute (3) UTI (urinary tract infection) Status: Acute Medical Problems: (1) blood clot left ventricle (2) Diabetes (3) ESBL (extended spectrum beta-lactamase) producing bacteria infection (4) Exertional shortness of breath (5) HTN (hypertension) (6) Pacemaker (7) Stroke Family History Cancer Heart disease Hypertension Lung disease Noncontributory Social History Smoking Status: Never Smoker Smokeless Tobacco Use: No Alcohol Use: none Drug Use: none Marital Status: Housing Status: lives with family Occupation Status: retired Allergies Coded Allergies: Metformin (Verified Allergy, Mild, UNKNOWN, 07/13/16) Aspirin (Verified Allergy, Unknown, Unknown rxn, 07/13/16) Propoxyphene (Verified Allergy, Unknown, Unknown rxn, 07/13/16) Home Medications Reported Home Medications Medications Dose Route/Sig Max Daily Dose Days Date Category Protonix (Pantoprazole Sodium) 40 Mg Tab 40 Mg PO DAILY 07/13/16 Reported Docusate Sodium 100 Mg Cap 200 Mg PO HS 7 06/20/16 Reported Micronase (Glyburide) 5 Mg Tab 5 Mg PO DAILY 06/20/16 Reported Zestril (Lisinopril) 5 Mg Tab 5 Mg PO DAILY 06/20/16 Reported Toprol Xl (Metoprolol Succinate) 50 Mg Tab 50 Mg PO DAILY 06/20/16 Reported Lyrica (Pregabalin) 50 Mg Cap 100 Mg PO HS 06/20/16 Reported Lyrica (Pregabalin) 50 Mg Cap 50 Mg PO QAM 06/20/16 Reported Trazodone (Trazodone HCl) 100 Mg Tab 100 Mg PO HS 06/20/16 Reported Norvasc (Amlodipine Besylate) 5 Mg Tab 5 Mg PO DAILY 06/20/16 Reported Zoloft (Sertraline HCl) 100 Mg Tab 100 Mg PO DAILY 06/20/16 Reported Lasix (Furosemide) 20 Mg Tab 80 Mg PO DAILY 06/20/16 Reported Jantoven (Warfarin Sodium) 4 Mg Tab 2 Mg PO Q2D 06/20/16 Reported Jantoven (Warfarin Sodium) 4 Mg Tab 4 Mg PO Q2D 06/20/16 Reported Zyprexa (Olanzapine) 15 Mg Tab 15 Mg PO DAILY 06/20/16 Reported Lipitor (Atorvastatin) 40 Mg Tab 40 Mg PO HS 06/20/16 Reported Imdur Ext Rel (Isosorbide Mononitrate) 30 Mg Ertab 30 Mg PO QAM 09/18/12 Reported Humulin 70/30 (Insulin Human Isoph/Insulin Regular) Susp 12 Units SC QPM 09/18/12 Reported Humulin 70/30 (Insulin Human Isoph/Insulin Regular) Susp 30 SC QAM 09/18/12 Reported Current Inpatient Medications Current Inpatient Medications Medications (Trade) Dose Ordered Sig/Holden Route Start Time Stop Time Status Last Admin Dose Admin Acetaminophen (Tylenol Tab) 650 mg Q4H PRN PO 07/13/16 15:30 08/12/16 15:29 Al Hydrox/Mg Hydrox/Simethicone (Maalox Max Susp) 15 ml Q4H PRN PO 07/13/16 15:30 08/12/16 15:29 Magnesium Hydroxide (Milk Of Magnesia Susp) 30 ml Q12H PRN PO 07/13/16 15:30 08/12/16 15:29 Ondansetron HCl (Zofran Inj) 4 mg Q6H PRN IV 07/13/16 15:30 08/12/16 15:29 Glucose (Glucose 40% Gel) 15-30 GRAMS 15 GRAMS... UD PRN PO 07/13/16 15:30 08/12/16 15:29 Glucose (Glucose Chew Tab) 4-8 Tablets 4 Tabl... UD PRN PO 07/13/16 15:30 08/12/16 15:29 Dextrose (Dextrose 50% 50ML Syringe) 25-50ML OF 50% DW IV FOR... UD PRN IV 07/13/16 15:30 08/12/16 15:29 Glucagon 1 mg 1 mg UD PRN SQ 07/13/16 15:30 08/12/16 15:29 Ertapenem/Sodium Chloride (Invanz Iv/Nss Ad-Van 50ml) 50 ml @ 120 mls/hr Q24H IV 07/14/16 13:00 07/23/16 12:59 Atorvastatin Calcium (Lipitor Tab) 40 mg HS PO 07/13/16 21:00 08/12/16 20:59 07/13/16 20:13 40 MG Docusate Sodium (coLACE CAP) 200 mg HS PO 07/13/16 21:00 08/12/16 20:59 07/13/16 20:13 200 MG Isosorbide Mononitrate (Imdur Ext Rel Tab) 30 mg QAM PO 07/14/16 09:00 08/13/16 08:59 07/14/16 08:46 30 MG Lisinopril (Zestril Tab) 5 mg DAILY PO 07/14/16 09:00 08/13/16 08:59 07/14/16 08:46 5 MG Metoprolol Succinate (Toprol Xl Tab) 50 mg DAILY PO 07/14/16 09:00 08/13/16 08:59 07/14/16 08:47 50 MG Pantoprazole Sodium (Protonix Tab) 40 mg DAILY PO 07/14/16 09:00 08/13/16 08:59 07/14/16 08:47 40 MG Pregabalin (Lyrica Cap) 50 mg QAM PO 07/14/16 09:00 08/13/16 08:59 07/14/16 08:45 50 MG Pregabalin (Lyrica Cap) 100 mg HS PO 07/13/16 21:00 08/12/16 20:59 07/13/16 20:12 100 MG Sertraline HCl (Zoloft Tab) 100 mg DAILY PO 07/14/16 09:00 08/13/16 08:59 07/14/16 08:47 100 MG Trazodone HCl (Desyrel Tab) 100 mg HS PO 07/13/16 21:00 08/12/16 20:59 07/13/16 20:12 100 MG Warfarin Sodium (Coumadin Tab) 2 mg Q2D@1600 PO 07/13/16 17:00 08/12/16 16:59 07/13/16 19:09 2 MG Warfarin Sodium (Coumadin Tab) 4 mg Q2D@1600 PO 07/14/16 16:00 08/13/16 15:59 Insulin Aspart SLIDING SCALE G... ACHS SC 07/13/16 16:00 08/12/16 15:59 07/14/16 08:43 3 UNITS Sodium Chloride (Nss 1000ml) 1,000 ml @ 75 mls/hr Q63T36H IV 07/13/16 15:45 07/14/16 18:24 07/14/16 05:25 75 MLS/HR Polyethylene (Miralax Powder Packet) 17 gm DAILY PO 07/14/16 09:00 08/13/16 08:59 07/14/16 08:45 17 GM Olanzapine/ Olanzapine (Zyprexa Tab/ Zyprexa Tab) 15 mg DAILY PO 07/14/16 09:00 08/13/16 08:59 07/14/16 08:46 15 MG Review of Systems Constitutional: + chills, + sweats (WH[employer]PING [employer]ER- now resolved), + weakness Eyes: No worsening of vision ENT: No hearing loss Respiratory: No cough, No shortness of breath Cardiovascular: No chest pain, No palpitations Abdomen: + constipation, + pain, No diarrhea, No vomiting Musculoskeletal: No joint pain Genitourinary - Female: No dysuria, No urinary frequency, No urinary urgency Neurologic: No numbness/tingling Integumentary: No itch, No rash Physical Exam Date Time Temp Pulse Resp B/P Pulse Ox O2 Delivery O2 Flow Rate FiO2 07/14/16 08:04 36.9 80 18 150/77 96 07/14/16 08:00 Room Air 07/14/16 04:44 36.8 60 18 146/69 92 Room Air 07/14/16 04:00 Nasal Cannula 2.0 07/13/16 23:59 Nasal Cannula 2.0 07/13/16 23:55 36.7 65 18 130/65 91 Room Air 07/13/16 20:00 Nasal Cannula 2.0 07/13/16 19:29 36.9 73 18 134/74 92 Room Air 07/13/16 17:10 36.7 79 18 151/77 98 Nasal Cannula 2.0 07/13/16 16:30 77 16 138/66 98 Nasal Cannula 2.0 07/13/16 15:35 66 16 142/60 98 Nasal Cannula 2.0 07/13/16 14:50 97 Nasal Cannula 2.0 07/13/16 14:49 60 16 120/58 88 Room Air 07/13/16 13:46 77 16 120/58 91 Room Air 07/13/16 12:51 98 Room Air 07/13/16 11:54 36.8 68 20 104/59 98 Room Air General Appearance: no apparent distress, + obese Head: normocephalic, atraumatic Eyes: normal inspection, sclerae normal ENT: hearing grossly normal Neck: supple, trachea midline Respiratory/Chest: chest non-tender, lungs clear, normal breath sounds, no respiratory distress, no accessory muscle use Cardiovascular: regular rate, rhythm Abdomen/GI: normal bowel sounds, + distended Extremities/Musculoskelatal: normal range of motion Neurologic/Psych: alert, normal mood/affect Skin: normal color, warm/dry, no rash Laboratory Results CT SCAN OF THE ABDOMEN AND PELVIS WITHOUT IV CONTRAST CLINICAL HISTORY: Recurrent urinary tract infections. Generalized abdominal pain. COMPARISON STUDY: Abdominal radiograph dated 06/20/2016. TECHNIQUE: CT scan of the abdomen and pelvis is performed from the lung bases to the proximal femora. Images are reviewed in the axial, sagittal, and coronal planes. IV contrast was not administered for this examination as per the referring clinician. Automated dose control exposure was utilized. CT DOSE: 1751.34 mGy.cm FINDINGS: Lung bases: The heart is mildly enlarged and there is trace pericardial fluid. Pacemaker leads are noted. The lung bases are clear. Liver: The unenhanced liver is normal in size, contour, and attenuation. There is no intrahepatic biliary ductal dilatation. Gallbladder: Surgically absent noting clips in the gallbladder fossa. Spleen: Normal in size and attenuation. Pancreas: There is near complete fatty atrophy of the pancreas. The unenhanced pancreas is otherwise grossly unremarkable. Adrenal glands: Unremarkable. Kidneys: The unenhanced kidneys are atrophic and without hydronephrosis. There are no renal calculi identified. There is no evidence of contour deforming renal mass lesion. Abdominal vasculature: The abdominal aorta is normal in course and caliber noting moderate to advanced atherosclerotic calcification. Stomach and bowel: There is a small to moderate hiatal hernia. Postoperative change is seen in the proximal stomach. The duodenum is normal in configuration. There is no bowel obstruction. There is moderate colonic fecal retention. The appendix is not visualized. Peritoneum: Numerous surgical clips are seen throughout the upper abdomen. There is no intraperitoneal free air or abdominal ascites. Lymphadenopathy: None. Pelvic viscera: Although decompressed, the bladder wall appears circumferentially thickened. The uterus is surgically absent. No adnexal lesion is seen. Skeletal structures: The skeletal structures are osteopenic. There is mild to moderate lumbosacral spondylosis. Arthritic change is also seen in the hips. No lytic or blastic lesions are seen. IMPRESSION: 1. Although decompressed, the bladder wall appears circumferentially thickened. Correlation with clinical findings and urinalysis will be required. 2. No renal calculi are identified. 3. Moderate to severe constipation. No bowel obstruction is seen. 4. Mild cardiomegaly. 5. Numerous surgical clips are seen throughout the upper abdomen. Correlation the patient's operative history will be required. 6. Additional findings as above. Item Value Date Time Blood Culture Received 07/13/16 1339 Blood Pending Urine Culture Received 07/13/16 1249 Urine , Clean Catch Pending Blood Culture Received 07/13/16 1232 Blood Pending Last 24 Hours Test 07/13/16 12:32 07/13/16 12:44 07/13/16 12:49 07/13/16 17:09 White Blood Count 9.77 K/uL Red Blood Count 4.52 M/uL Hemoglobin 12.3 g/dL Hematocrit 38.2 % Mean Corpuscular Volume 84.5 fL Mean Corpuscular Hemoglobin 27.2 pg Mean Corpuscular Hemoglobin Concent 32.2 g/dl Platelet Count 188 K/uL Mean Platelet Volume 10.6 fL Neutrophils (%) (Auto) 63.1 % Lymphocytes (%) (Auto) 28.0 % Monocytes (%) (Auto) 8.0 % Eosinophils (%) (Auto) 0.6 % Basophils (%) (Auto) 0.1 % Neutrophils # (Auto) 6.16 K/uL Lymphocytes # (Auto) 2.74 K/uL Monocytes # (Auto) 0.78 K/uL Eosinophils # (Auto) 0.06 K/uL Basophils # (Auto) 0.01 K/uL RDW Standard Deviation 43.7 fL RDW Coefficient of Variation 14.1 % Immature Granulocyte % (Auto) 0.2 % Immature Granulocyte # (Auto) 0.02 K/uL Erythrocyte Sedimentation Rate 46 mm/hr Prothrombin Time 15.3 SECONDS Prothromb Time International Ratio 1.4 Activated Partial Thromboplast Time 27.9 SECONDS Partial Thromboplastin Ratio 1.1 Sodium Level 139 mmol/L Potassium Level 3.5 mmol/L Chloride Level 102 mmol/L Carbon Dioxide Level 33 mmol/L Anion Gap 4.0 mmol/L Blood Urea Nitrogen 22 mg/dl Creatinine 1.30 mg/dl Est Creatinine Clear Calc Drug Dose 33.9 ml/min Estimated GFR () 44.9 Estimated GFR (Non- 38.7 BUN/Creatinine Ratio 17.3 Random Glucose 130 mg/dl Calcium Level 8.5 mg/dl Phosphorus Level 3.3 mg/dl Magnesium Level 2.4 mg/dl Total Bilirubin 0.5 mg/dl Aspartate Amino Transf (AST/SGOT) 27 U/L Alanine Aminotransferase (ALT/SGPT) 34 U/L Alkaline Phosphatase 148 U/L Total Creatine Kinase 83 U/L Creatine Kinase MB 1.4 ng/ml Creatine Kinase MB Ratio 1.7 Troponin I < 0.015 ng/ml C-Reactive Protein < 0.29 mg/dl Pro-B-Type Natriuretic Peptide 261 pg/ml Total Protein 7.8 gm/dl Albumin 3.9 gm/dl Globulin 3.9 gm/dl Albumin/Globulin Ratio 1.0 Lipase 96 U/L Bedside Lactic Acid Venous 1.34 mmol/L Urine Color DK YELLOW Urine Appearance CLEAR Urine pH 5.0 Urine Specific [place] 1.019 Urine Protein TRACE Urine Glucose (UA) NEG Urine Ketones TRACE Urine Occult Blood NEG Urine Nitrite NEG Urine Bilirubin NEG Urine Urobilinogen NEG Urine Leukocyte Esterase SMALL Urine WBC (Auto) 5-10 /hpf Urine RBC (Auto) 0-4 /hpf Urine Hyaline Casts (Auto) 10-30 /lpf Urine Epithelial Cells (Auto) >30 /lpf Urine Bacteria (Auto) NEG Urine Renal Epithelial Cells /lpf Bedside Glucose 110 mg/dl Test 07/13/16 21:28 07/14/16 06:25 07/14/16 07:06 Bedside Glucose 120 mg/dl 111 mg/dl White Blood Count 6.49 K/uL Red Blood Count 4.12 M/uL Hemoglobin 11.1 g/dL Hematocrit 35.3 % Mean Corpuscular Volume 85.7 fL Mean Corpuscular Hemoglobin 26.9 pg Mean Corpuscular Hemoglobin Concent 31.4 g/dl RDW Standard Deviation 44.5 fL RDW Coefficient of Variation 14.2 % Platelet Count 150 K/uL Mean Platelet Volume 10.8 fL Prothrombin Time 17.3 SECONDS Prothromb Time International Ratio 1.6 Sodium Level 142 mmol/L Potassium Level 3.9 mmol/L Chloride Level 106 mmol/L Carbon Dioxide Level 32 mmol/L Anion Gap 4.0 mmol/L Blood Urea Nitrogen 22 mg/dl Creatinine 1.00 mg/dl Est Creatinine Clear Calc Drug Dose 43.4 ml/min Estimated GFR () 61.6 Estimated GFR (Non- 53.2 BUN/Creatinine Ratio 21.6 Random Glucose 118 mg/dl Estimated Average Glucose 200 mg/dl Hemoglobin A1c 8.6 % Calcium Level 7.7 mg/dl Magnesium Level 2.3 mg/dl Assessment & Plan Patient with ESBL producing E. Coli UTI. CT of the abdomen/pelvis showed bladder wall thickening, no renal calculi, and moderate to severe constipation. She has previously grown the same E. Coli in [place] and was treated with PO Macrobid. Despite Macrobid sensitivity, would recommend that this patient be treated with continued IV Ertapenem therapy to complete 7 days pending repeat blood and urine cultures. If blood cultures are positive, will need to complete 14 days. If she continues to improve, likely could complete this therapy as an outpatient. case reviewed and I agree
[2016-07-14 12:08] VITALS: BP 123/51; PULSE 62; TEMP 36.4; O2SAT 96
[2016-07-14] MEDS: ERTAPENEM IV 1 GM in SODIUM CHLOR 0.9% AD-VAN 50ML 50 ML IV SCH (12:50)
[2016-07-14 14:49] VITALS: BP 100/49; PULSE 64; TEMP 36.3; O2SAT 95
[2016-07-14] MEDS: WARFARIN SOD 4 MG TAB PO SCH (16:19)
[2016-07-14] MEDS: LACTULOSE SYRUP 30 GM/45 ML UDP PO PRN (18:07)
[2016-07-14] MEDS: PREGABALIN 100 MG CAP PO SCH (21:20)
[2016-07-14] MEDS: TRAZODONE HCL 100 MG TAB PO SCH (21:21)
[2016-07-14] MEDS: DOCUSATE SODIUM 100 MG CAP PO SCH (21:21)
[2016-07-14] MEDS: ATORVASTATIN 40 MG TAB PO SCH (21:22)
[2016-07-14 23:14] VITALS: BP 160/74; PULSE 92; TEMP 36.5; O2SAT 93
[2016-07-15 00:05] VITALS: BP 138/67
[2016-07-15 06:26] LABS: HEMATOCRIT 34.9 % (37-47); MEAN CELL VOLUME 84.9 fL (80-100); MEAN CORPUSCULAR HEMOGLOBIN 26.3 pg (25-34); MEAN CORPUSCULAR HGB CONC 30.9 g/dl (32-36); MEAN PLATELET VOLUME 10.3 fL (7.4-10.4); PLATELET COUNT 148 K/uL (130-400); RED BLOOD COUNT 4.11 M/uL (4.2-5.4); WHITE BLOOD COUNT 6.65 K/uL (4.8-10.8)
[2016-07-15 06:42] LABS: INR 1.8 (0.9-1.1); PROTHROMBIN TIME (PATIENT) 19.2 SECONDS (9.0-12.0)
[2016-07-15 06:43] LABS: BUN/CREATININE RATIO 20.3 (10-20); CALCIUM 7.9 mg/dl (8.5-10.1); CREATININE 0.91 mg/dl (0.60-1.20); MAGNESIUM 2.3 mg/dl (1.8-2.4); POTASSIUM 4.2 mmol/L (3.5-5.1)
[2016-07-15 08:30] VITALS: BP 151/75; PULSE 66; TEMP 37.4; O2SAT 94
[2016-07-15] MEDS: PANTOprazole SOD 40 MG TAB PO SCH (08:34)
[2016-07-15] MEDS: SERTRALINE HCL 100 MG TAB PO SCH (08:34)
[2016-07-15] MEDS: OLANZAPINE PO SCH ×2 (08:34)
[2016-07-15] MEDS: ISOSORBIDE MONONITRATE 30 MG TABCR PO SCH (08:34)
[2016-07-15] MEDS: LISINOPRIL 5 MG TAB PO SCH (08:34)
[2016-07-15] MEDS: METOPROLOL SUCC 50MG EXT REL TAB PO SCH (08:35)
[2016-07-15] MEDS: LACTULOSE SYRUP 30 GM/45 ML UDP PO PRN (08:35)
[2016-07-15] MEDS: POLYETHYLENE (MIRALAX) 17 GM PACK PO SCH (08:36)
[2016-07-15] MEDS: PREGABALIN 50 MG CAP PO SCH (08:44)
[2016-07-15] MEDS: INSULIN ASPART 100 UNITS/ML 3 ML PEN SC SCH ×4 (08:45→20:56)
[2016-07-15 10:27] VITALS: O2SAT 94
[2016-07-15] MEDS: ERTAPENEM IV 1 GM in SODIUM CHLOR 0.9% AD-VAN 50ML 50 ML IV SCH (12:27)
[2016-07-15] MEDS ORDERED: SOD PHOSPHATE/SOD BIPHOSPHATE ENEMA 132 ML BTL PR PRN (12:30)
[2016-07-15 15:07] VITALS: BP 119/67; PULSE 64; TEMP 36.9; O2SAT 94
--- NOTE | 2016-07-15 15:30 | Progress Note ---
Subjective Date of Service: July 15, 2016. Subjective Pt evaluation today including: conversation w/ patient, physical exam, lab review, review of inpatient medication list Pain: denies pain PO Intake: adequate Voiding: no voiding problems patient doing well, still no BM despite Miralax and Lactulose, will try enema discussed d/c plan with , he would like to try for [facility] in [place] will need PICC tomorrow Problem List Medical Problems: (1) Abdominal pain Status: Acute (2) Nausea Status: Acute (3) UTI (urinary tract infection) Status: Acute Review of Systems Constitutional: + fatigue, + weakness Abdomen: + constipation All Other Systems: Reviewed and Negative Medications Current Inpatient Medications Medications (Trade) Dose Ordered Sig/Holden Route Start Time Stop Time Status Last Admin Dose Admin Acetaminophen (Tylenol Tab) 650 mg Q4H PRN PO 07/13/16 15:30 08/12/16 15:29 07/15/16 00:09 650 MG Al Hydrox/Mg Hydrox/Simethicone (Maalox Max Susp) 15 ml Q4H PRN PO 07/13/16 15:30 08/12/16 15:29 Magnesium Hydroxide (Milk Of Magnesia Susp) 30 ml Q12H PRN PO 07/13/16 15:30 08/12/16 15:29 Ondansetron HCl (Zofran Inj) 4 mg Q6H PRN IV 07/13/16 15:30 08/12/16 15:29 Glucose (Glucose 40% Gel) 15-30 GRAMS 15 GRAMS... UD PRN PO 07/13/16 15:30 08/12/16 15:29 Glucose (Glucose Chew Tab) 4-8 Tablets 4 Tabl... UD PRN PO 07/13/16 15:30 08/12/16 15:29 Dextrose (Dextrose 50% 50ML Syringe) 25-50ML OF 50% DW IV FOR... UD PRN IV 07/13/16 15:30 08/12/16 15:29 Glucagon 1 mg 1 mg UD PRN SQ 07/13/16 15:30 08/12/16 15:29 Ertapenem/Sodium Chloride (Invanz Iv/Nss Ad-Van 50ml) 50 ml @ 120 mls/hr Q24H IV 07/14/16 13:00 07/23/16 12:59 07/15/16 12:27 120 MLS/HR Atorvastatin Calcium (Lipitor Tab) 40 mg HS PO 07/13/16 21:00 08/12/16 20:59 07/14/16 21:22 40 MG Docusate Sodium (coLACE CAP) 200 mg HS PO 07/13/16 21:00 08/12/16 20:59 07/14/16 21:21 200 MG Isosorbide Mononitrate (Imdur Ext Rel Tab) 30 mg QAM PO 07/14/16 09:00 08/13/16 08:59 07/15/16 08:34 30 MG Lisinopril (Zestril Tab) 5 mg DAILY PO 07/14/16 09:00 08/13/16 08:59 07/15/16 08:34 5 MG Metoprolol Succinate (Toprol Xl Tab) 50 mg DAILY PO 07/14/16 09:00 08/13/16 08:59 07/15/16 08:35 50 MG Pantoprazole Sodium (Protonix Tab) 40 mg DAILY PO 07/14/16 09:00 08/13/16 08:59 07/15/16 08:34 40 MG Pregabalin (Lyrica Cap) 50 mg QAM PO 07/14/16 09:00 08/13/16 08:59 07/15/16 08:44 50 MG Pregabalin (Lyrica Cap) 100 mg HS PO 07/13/16 21:00 08/12/16 20:59 07/14/16 21:20 100 MG Sertraline HCl (Zoloft Tab) 100 mg DAILY PO 07/14/16 09:00 08/13/16 08:59 07/15/16 08:34 100 MG Trazodone HCl (Desyrel Tab) 100 mg HS PO 07/13/16 21:00 08/12/16 20:59 07/14/16 21:21 100 MG Warfarin Sodium (Coumadin Tab) 2 mg Q2D@1600 PO 07/13/16 17:00 08/12/16 16:59 07/13/16 19:09 2 MG Warfarin Sodium (Coumadin Tab) 4 mg Q2D@1600 PO 07/14/16 16:00 08/13/16 15:59 07/14/16 16:19 4 MG Insulin Aspart (novoLOG ASPART) SLIDING SCALE G... ACHS SC 07/13/16 16:00 08/12/16 15:59 07/15/16 12:36 7 UNITS Polyethylene (Miralax Powder Packet) 17 gm DAILY PO 07/14/16 09:00 08/13/16 08:59 07/15/16 08:36 17 GM Olanzapine/ Olanzapine (Zyprexa Tab/ Zyprexa Tab) 15 mg DAILY PO 07/14/16 09:00 08/13/16 08:59 07/15/16 08:34 15 MG Lactulose (Chronulac Syrup) 30 gm Q6 PRN PO 07/14/16 15:00 08/13/16 14:59 07/15/16 08:35 30 GM Sodium Biphosphate/ Sodium Phosphate (Fleet Enema) 132 ml DAILY PRN IA 07/15/16 12:30 08/14/16 12:29 Objective Vital Signs Date Time Temp Pulse Resp B/P Pulse Ox O2 Delivery O2 Flow Rate FiO2 07/15/16 15:07 36.9 64 16 119/67 94 Room Air 07/15/16 10:27 94 Room Air 07/15/16 09:00 Room Air 07/15/16 08:30 37.4 66 16 151/75 94 Nasal Cannula 2.0 07/15/16 00:05 138/67 07/15/16 00:00 Room Air 07/14/16 23:14 36.5 92 16 160/74 93 Room Air 07/14/16 18:44 Room Air Physical Exam General Appearance: WD/WN, no apparent distress Eyes: normal inspection, EOMI, sclerae normal ENT: normal ENT inspection, hearing grossly normal, pharynx normal Neck: supple, no adenopathy, no JVD, trachea midline Respiratory/Chest: chest non-tender, lungs clear, normal breath sounds, no respiratory distress, no accessory muscle use Cardiovascular: regular rate, rhythm, no edema, no gallop, no JVD, no murmur Abdomen: normal bowel sounds, non tender, soft, no organomegaly Extremities: normal range of motion, non-tender, normal inspection, no pedal edema, no calf tenderness, pelvis stable Neurologic/Psychiatric: master glazier II-XII nml as tested, alert, normal mood/affect, oriented x 3, + motor weakness (generalized) Skin: normal color, warm/dry, no rash Laboratory Results Last 24 Hours Test 07/14/16 16:03 07/14/16 20:30 07/15/16 06:11 07/15/16 07:09 Bedside Glucose 248 mg/dl 186 mg/dl 227 mg/dl White Blood Count 6.65 K/uL Red Blood Count 4.11 M/uL Hemoglobin 10.8 g/dL Hematocrit 34.9 % Mean Corpuscular Volume 84.9 fL Mean Corpuscular Hemoglobin 26.3 pg Mean Corpuscular Hemoglobin Concent 30.9 g/dl RDW Standard Deviation 43.6 fL RDW Coefficient of Variation 14.0 % Platelet Count 148 K/uL Mean Platelet Volume 10.3 fL Prothrombin Time 19.2 SECONDS Prothromb Time International Ratio 1.8 Sodium Level 146 mmol/L Potassium Level 4.2 mmol/L Chloride Level 108 mmol/L Carbon Dioxide Level 35 mmol/L Anion Gap 3.0 mmol/L Blood Urea Nitrogen 18 mg/dl Creatinine 0.91 mg/dl Est Creatinine Clear Calc Drug Dose 49.5 ml/min Estimated GFR () 69.1 Estimated GFR (Non- 59.6 BUN/Creatinine Ratio 20.3 Random Glucose 230 mg/dl Calcium Level 7.9 mg/dl Magnesium Level 2.3 mg/dl Test 07/15/16 11:05 Bedside Glucose 247 mg/dl Assessment and Plan Ms. Jameson is an 81 y/o female with PMHx of Complete HB S/P Dual Chamber Pacemaker, CAD S/P LAD Infarct, Diastolic CHF, LV Apical Thrombus with H/O CVA, T2DM, HLD, HTN, and Lewy Body Dementia who presents to the ED for abdominal pain and nausea x 1 week. ESBL - MDR E. Coli UTI: Contact Precautions - Cx from 06/27 - Tx with Macrobid BID x 10 days with progressive symptoms - Cont Ertapenem 1 g daily (day #3) - CT Abd/Pelvis - the bladder wall appears circumferentially thickened, No renal calculi, moderate to severe constipation w/o bowel obstruction, mild cardiomegaly - plan for PICC tomorrow, work on d/c plan, likely for SNF but would be Sunday at earliest Chronic Diastolic CHF with B/L Lower Extremity Edema: resume Lasix tomorrow LV Apical Thrombus with H/O CVA: Subtherapeutic INR - Warfarin alternating Q2D with 2 mg and 4 mg - Follow coags, INR 1.8 today Complete HB S/P Pacer, CAD S/P LAD Infarct, and HTN: Follows with Dr. Gamble - Per PCP note - hypotensive in office and plan is to D/C Norvasc - held at this time - Atorvastatin 40 mg daily - Imdur 30 mg daily - Lisinopril 5 mg daily and Metoprolol 50 mg daily T2DM: Hyperglycemia - Hold home regimen at this time and implement SSI - may need adjustments or return to home dosing if able Bowel Regimen: Constipation with H/O BRBPR: - CT Abd/Pelvis reveals moderate fecal retention -Miralax BID, Lactulose q6, enema PRN. - Outpatient Flex Sig scheduled with Dr. Nunez Lewy Body Dementia/Depression: - Zyprexa 15 mg daily and Zoloft 100 mg daily DVT Prophylaxis: Coumadin Code Status: FULL RESUSCITATION Plan: should go to SNF, Sunday would be earliest, follow up on blood cultures, need PICC tomorrow
[2016-07-15] MEDS: WARFARIN SOD 2 MG TAB PO SCH (15:59)
[2016-07-15] MEDS: DOCUSATE SODIUM 100 MG CAP PO SCH (20:56)
[2016-07-15] MEDS: TRAZODONE HCL 100 MG TAB PO SCH (20:56)
[2016-07-15] MEDS: ATORVASTATIN 40 MG TAB PO SCH (20:56)
[2016-07-15] MEDS: PREGABALIN 100 MG CAP PO SCH (20:59)
[2016-07-15 23:22] VITALS: BP 149/61; PULSE 62; TEMP 37.1; O2SAT 94
[2016-07-16 07:36] LABS: HEMATOCRIT 34.1 % (37-47); MEAN CELL VOLUME 84.2 fL (80-100); MEAN CORPUSCULAR HEMOGLOBIN 26.9 pg (25-34); MEAN PLATELET VOLUME 10.8 fL (7.4-10.4); PLATELET COUNT 153 K/uL (130-400); RED BLOOD COUNT 4.05 M/uL (4.2-5.4); WHITE BLOOD COUNT 7.66 K/uL (4.8-10.8)
[2016-07-16 07:38] LABS: INR 1.7 (0.9-1.1)
[2016-07-16 07:51] VITALS: BP 165/72; PULSE 67; TEMP 37.1; O2SAT 91
[2016-07-16] MEDS: OLANZAPINE PO SCH ×2 (07:51)
[2016-07-16] MEDS: ISOSORBIDE MONONITRATE 30 MG TABCR PO SCH (07:51)
[2016-07-16] MEDS: SERTRALINE HCL 100 MG TAB PO SCH (07:51)
[2016-07-16] MEDS: PANTOprazole SOD 40 MG TAB PO SCH (07:51)
[2016-07-16] MEDS: LISINOPRIL 5 MG TAB PO SCH (07:52)
[2016-07-16] MEDS: POLYETHYLENE (MIRALAX) 17 GM PACK PO SCH (07:52)
[2016-07-16] MEDS: METOPROLOL SUCC 50MG EXT REL TAB PO SCH (07:52)
[2016-07-16] MEDS: PREGABALIN 50 MG CAP PO SCH (07:57)
[2016-07-16 08:09] LABS: BUN/CREATININE RATIO 18.8 (10-20); CREATININE 0.91 mg/dl (0.60-1.20); MAGNESIUM 2.2 mg/dl (1.8-2.4); POTASSIUM 4.2 mmol/L (3.5-5.1)
[2016-07-16] MEDS: INSULIN ASPART 100 UNITS/ML 3 ML PEN SC SCH ×4 (09:57→21:00)
--- NOTE | 2016-07-16 13:33 | Progress Note ---
Subjective Date of Service: July 16, 2016. Subjective Pt evaluation today including: conversation w/ patient, conversation w/ family (), physical exam, lab review, review of inpatient medication list Pain: denies pain PO Intake: adequate Voiding: no voiding problems patient excited because she moved bowels 10 times last night, RN reported they were solid, not diarrhea feels better from abdominal perspective discussed plan for PICC, signed consent hopeful for SNF tomorrow, but will not get answer until then Problem List Medical Problems: (1) Abdominal pain Status: Acute (2) Nausea Status: Acute (3) UTI (urinary tract infection) Status: Acute Review of Systems Constitutional: + fatigue, + weakness Abdomen: + constipation (resolved) All Other Systems: Reviewed and Negative Medications Current Inpatient Medications Medications (Trade) Dose Ordered Sig/Holden Route Start Time Stop Time Status Last Admin Dose Admin Acetaminophen (Tylenol Tab) 650 mg Q4H PRN PO 07/13/16 15:30 08/12/16 15:29 07/15/16 00:09 650 MG Al Hydrox/Mg Hydrox/Simethicone (Maalox Max Susp) 15 ml Q4H PRN PO 07/13/16 15:30 08/12/16 15:29 Magnesium Hydroxide (Milk Of Magnesia Susp) 30 ml Q12H PRN PO 07/13/16 15:30 08/12/16 15:29 Ondansetron HCl (Zofran Inj) 4 mg Q6H PRN IV 07/13/16 15:30 08/12/16 15:29 Glucose (Glucose 40% Gel) 15-30 GRAMS 15 GRAMS... UD PRN PO 07/13/16 15:30 08/12/16 15:29 Glucose (Glucose Chew Tab) 4-8 Tablets 4 Tabl... UD PRN PO 07/13/16 15:30 08/12/16 15:29 Dextrose (Dextrose 50% 50ML Syringe) 25-50ML OF 50% DW IV FOR... UD PRN IV 07/13/16 15:30 08/12/16 15:29 Glucagon 1 mg 1 mg UD PRN SQ 07/13/16 15:30 08/12/16 15:29 Ertapenem/Sodium Chloride (Invanz Iv/Nss Ad-Van 50ml) 50 ml @ 120 mls/hr Q24H IV 07/14/16 13:00 07/23/16 12:59 07/15/16 12:27 120 MLS/HR Atorvastatin Calcium (Lipitor Tab) 40 mg HS PO 07/13/16 21:00 08/12/16 20:59 07/15/16 20:56 40 MG Docusate Sodium (coLACE CAP) 200 mg HS PO 07/13/16 21:00 08/12/16 20:59 07/15/16 20:56 200 MG Isosorbide Mononitrate (Imdur Ext Rel Tab) 30 mg QAM PO 07/14/16 09:00 08/13/16 08:59 07/16/16 07:51 30 MG Lisinopril (Zestril Tab) 5 mg DAILY PO 07/14/16 09:00 08/13/16 08:59 07/16/16 07:52 5 MG Metoprolol Succinate (Toprol Xl Tab) 50 mg DAILY PO 07/14/16 09:00 08/13/16 08:59 07/16/16 07:52 50 MG Pantoprazole Sodium (Protonix Tab) 40 mg DAILY PO 07/14/16 09:00 08/13/16 08:59 07/16/16 07:51 40 MG Pregabalin (Lyrica Cap) 50 mg QAM PO 07/14/16 09:00 08/13/16 08:59 07/16/16 07:57 50 MG Pregabalin (Lyrica Cap) 100 mg HS PO 07/13/16 21:00 08/12/16 20:59 07/15/16 20:59 100 MG Sertraline HCl (Zoloft Tab) 100 mg DAILY PO 07/14/16 09:00 08/13/16 08:59 07/16/16 07:51 100 MG Trazodone HCl (Desyrel Tab) 100 mg HS PO 07/13/16 21:00 08/12/16 20:59 07/15/16 20:56 100 MG Warfarin Sodium (Coumadin Tab) 2 mg Q2D@1600 PO 07/13/16 17:00 08/12/16 16:59 07/15/16 15:59 2 MG Warfarin Sodium (Coumadin Tab) 4 mg Q2D@1600 PO 07/14/16 16:00 08/13/16 15:59 07/14/16 16:19 4 MG Insulin Aspart (novoLOG ASPART) SLIDING SCALE G... ACHS SC 07/13/16 16:00 08/12/16 15:59 07/16/16 12:46 8 UNITS Polyethylene (Miralax Powder Packet) 17 gm DAILY PO 07/14/16 09:00 08/13/16 08:59 07/16/16 07:52 17 GM Olanzapine/ Olanzapine (Zyprexa Tab/ Zyprexa Tab) 15 mg DAILY PO 07/14/16 09:00 08/13/16 08:59 07/16/16 07:51 15 MG Lactulose (Chronulac Syrup) 30 gm Q6 PRN PO 07/14/16 15:00 08/13/16 14:59 07/15/16 08:35 30 GM Sodium Biphosphate/ Sodium Phosphate (Fleet Enema) 132 ml DAILY PRN MN 07/15/16 12:30 08/14/16 12:29 Objective Vital Signs Date Time Temp Pulse Resp B/P Pulse Ox O2 Delivery O2 Flow Rate FiO2 07/16/16 08:00 Room Air 07/16/16 07:51 37.1 67 18 165/72 91 07/16/16 00:00 Room Air 07/15/16 23:22 37.1 62 18 149/61 94 Room Air 07/15/16 19:30 Room Air 07/15/16 16:00 Room Air 07/15/16 15:07 36.9 64 16 119/67 94 Room Air Physical Exam General Appearance: WD/WN, no apparent distress Eyes: normal inspection, EOMI, sclerae normal ENT: normal ENT inspection, hearing grossly normal, pharynx normal Neck: supple, no adenopathy, no JVD, trachea midline Respiratory/Chest: chest non-tender, lungs clear, normal breath sounds, no respiratory distress, no accessory muscle use Cardiovascular: regular rate, rhythm, no edema, no gallop, no JVD, no murmur Abdomen: normal bowel sounds, non tender, soft, no organomegaly Extremities: normal range of motion, non-tender, normal inspection, no pedal edema, no calf tenderness Neurologic/Psychiatric: nurse esthetician II-XII nml as tested, alert, normal mood/affect, + abnormal gait, + motor weakness (generalized), + pertinent finding (some generalized memory issues) Skin: normal color, warm/dry, no rash Laboratory Results Last 24 Hours Test 07/15/16 16:13 07/15/16 19:51 07/16/16 06:58 07/16/16 07:35 Bedside Glucose 142 mg/dl 155 mg/dl 199 mg/dl White Blood Count 7.66 K/uL Red Blood Count 4.05 M/uL Hemoglobin 10.9 g/dL Hematocrit 34.1 % Mean Corpuscular Volume 84.2 fL Mean Corpuscular Hemoglobin 26.9 pg Mean Corpuscular Hemoglobin Concent 32.0 g/dl RDW Standard Deviation 43.2 fL RDW Coefficient of Variation 14.1 % Platelet Count 153 K/uL Mean Platelet Volume 10.8 fL Prothrombin Time 19.0 SECONDS Prothromb Time International Ratio 1.7 Sodium Level 144 mmol/L Potassium Level 4.2 mmol/L Chloride Level 106 mmol/L Carbon Dioxide Level 33 mmol/L Anion Gap 5.0 mmol/L Blood Urea Nitrogen 17 mg/dl Creatinine 0.91 mg/dl Est Creatinine Clear Calc Drug Dose 49.1 ml/min Estimated GFR () 69.1 Estimated GFR (Non- 59.6 BUN/Creatinine Ratio 18.8 Random Glucose 196 mg/dl Calcium Level 8.0 mg/dl Magnesium Level 2.2 mg/dl Test 07/16/16 11:26 Bedside Glucose 281 mg/dl Assessment and Plan Ms. Jameson is an 81 y/o female with PMHx of Complete HB S/P Dual Chamber Pacemaker, CAD S/P LAD Infarct, Diastolic CHF, LV Apical Thrombus with H/O CVA, T2DM, HLD, HTN, and Lewy Body Dementia who presents to the ED for abdominal pain and nausea x 1 week. ESBL - MDR E. Coli UTI: Contact Precautions - Cx from 06/27 - Tx with Macrobid BID x 10 days with progressive symptoms - Cont Ertapenem IV 1gm daily (day #4) - CT Abd/Pelvis - the bladder wall appears circumferentially thickened, No renal calculi, moderate to severe constipation w/o bowel obstruction, mild cardiomegaly - plan for PICC today, work on d/c plan, likely for SNF but would be Sunday at earliest - would only need 2 days of Ertapenem at SNF after tomorrow's dose - initial blood cultures grew coag neg staph in one sample, likely contaminant - repeat blood cultures negative, no evidence of ESBL in the blood so total therapy can be 7 days Chronic Diastolic CHF with B/L Lower Extremity Edema: resume Lasix tomorrow LV Apical Thrombus with H/O CVA: Subtherapeutic INR - Warfarin alternating Q2D with 2 mg and 4 mg prior to admission - Follow coags, INR 1.7 today - will increase Coumadin to 3mg and 4mg alternating Complete HB S/P Pacer, CAD S/P LAD Infarct, and HTN: Follows with Dr. Gamble - Per PCP note - hypotensive in office and plan is to D/C Norvasc - held at this time and should be stopped on discharge - Atorvastatin 40 mg daily - Imdur 30 mg daily - Lisinopril 5 mg daily and Metoprolol 50 mg daily T2DM: Hyperglycemia - Hold home regimen at this time and implement SSI - may need adjustments or return to home dosing if able Bowel Regimen: Constipation with H/O BRBPR: - CT Abd/Pelvis reveals moderate fecal retention -Miralax BID, Lactulose q6, enema PRN. moved bowels 10 times on 07/15, feels much better would recommend continuing Miralax BID and can use Lactulose PRN as outpatient, she has Parkinson's - Outpatient Flex Sig scheduled with Dr. Nunez Lewy Body Dementia/Depression: - Zyprexa 15 mg daily and Zoloft 100 mg daily DVT Prophylaxis: Coumadin Code Status: FULL RESUSCITATION Plan: should go to SNF, Sunday would be earliest, would only need 2 more doses of Ertapenem for 7 days total because tomorrow will be day 5
[2016-07-16] MEDS: ERTAPENEM IV 1 GM in SODIUM CHLOR 0.9% AD-VAN 50ML 50 ML IV SCH (13:41)
[2016-07-16 15:09] VITALS: BP 154/70; PULSE 62; TEMP 37; O2SAT 95
[2016-07-16] MEDS: WARFARIN SOD 4 MG TAB PO SCH (16:25)
[2016-07-16] MEDS: PREGABALIN 100 MG CAP PO SCH (21:00)
[2016-07-16] MEDS: TRAZODONE HCL 100 MG TAB PO SCH (22:00)
[2016-07-16] MEDS: DOCUSATE SODIUM 100 MG CAP PO SCH (22:00)
[2016-07-16] MEDS: ATORVASTATIN 40 MG TAB PO SCH (22:01)
[2016-07-17 07:50] VITALS: BP 135/78; PULSE 107; TEMP 37; O2SAT 92
[2016-07-17] MEDS: POLYETHYLENE (MIRALAX) 17 GM PACK PO SCH (07:55)
[2016-07-17] MEDS: SERTRALINE HCL 100 MG TAB PO SCH (07:56)
[2016-07-17] MEDS: LISINOPRIL 5 MG TAB PO SCH (07:56)
[2016-07-17] MEDS: OLANZAPINE PO SCH ×2 (07:57)
[2016-07-17] MEDS: PANTOprazole SOD 40 MG TAB PO SCH (07:57)
[2016-07-17] MEDS: METOPROLOL SUCC 50MG EXT REL TAB PO SCH (07:57)
[2016-07-17] MEDS: ISOSORBIDE MONONITRATE 30 MG TABCR PO SCH (07:58)
[2016-07-17] MEDS: PREGABALIN 50 MG CAP PO SCH (08:02)
[2016-07-17] MEDS: INSULIN ASPART 100 UNITS/ML 3 ML PEN SC SCH ×4 (09:21→21:49)
[2016-07-17 09:51] VITALS: PULSE 82
[2016-07-17 10:35] LABS: INR 1.7 (0.9-1.1); PROTHROMBIN TIME (PATIENT) 18.1 SECONDS (9.0-12.0)
[2016-07-17] MEDS: ERTAPENEM IV 1 GM in SODIUM CHLOR 0.9% AD-VAN 50ML 50 ML IV SCH (12:58)
[2016-07-17] MEDS ORDERED: WARFARIN SOD 3 MG TAB PO SCH (16:00)
[2016-07-17 16:17] VITALS: BP 127/70; PULSE 60; TEMP 37; O2SAT 95
[2016-07-17] MEDS ORDERED: ERTA1INJ IV (19:21)
[2016-07-17] MEDS: TRAZODONE HCL 100 MG TAB PO SCH (20:47)
[2016-07-17] MEDS: ATORVASTATIN 40 MG TAB PO SCH (20:47)
[2016-07-17] MEDS: DOCUSATE SODIUM 100 MG CAP PO SCH (20:48)
[2016-07-17] MEDS: PREGABALIN 100 MG CAP PO SCH (20:48)
--- NOTE | 2016-07-17 22:32 | Hospitalist Progress Note ---
Hospitalist Progress Note Date of Service July 17, 2016. Subjective Pt evaluation today including: conversation w/ patient Feeling well, no concerns, awaiting placement for discharge All Other Systems: Reviewed and Negative Objective Vital Signs Date Time Temp Pulse Resp B/P Pulse Ox O2 Delivery O2 Flow Rate FiO2 07/17/16 16:17 37.0 60 20 127/70 95 Room Air 07/17/16 16:00 Room Air 07/17/16 09:51 82 07/17/16 08:00 Room Air 07/17/16 07:50 37.0 107 20 135/78 92 07/17/16 00:00 Room Air Physical Exam General Appearance: WD/WN, no apparent distress Eyes: sclerae normal ENT: hearing grossly normal Neck: trachea midline Respiratory/Chest: lungs clear, normal breath sounds, no respiratory distress, no accessory muscle use Cardiovascular: regular rate, rhythm, no edema, no gallop, no murmur Abdomen: normal bowel sounds, non tender, soft, no pulsatile mass Extremities: non-tender, no pedal edema, no calf tenderness Neurologic/Psychiatric: alert, normal mood/affect Skin: normal color, warm/dry, no rash Laboratory Results Last 24 Hours Test 07/17/16 07:02 07/17/16 09:52 07/17/16 11:06 07/17/16 16:33 Bedside Glucose 185 mg/dl 219 mg/dl 148 mg/dl Prothrombin Time 18.1 SECONDS Prothromb Time International Ratio 1.7 Test 07/17/16 20:33 Bedside Glucose 203 mg/dl Assessment and Plan Ms. Jameson is an 81 y/o female with PMHx of Complete HB S/P Dual Chamber Pacemaker, CAD S/P LAD Infarct, Diastolic CHF, LV Apical Thrombus with H/O CVA, T2DM, HLD, HTN, and Lewy Body Dementia who presents to the ED for abdominal pain and nausea x 1 week, found to have ESBL E. coli UTI POA ESBL - MDR E. Coli UTI: Improving, BCxs remain negative, afebrile, feeling much better. Severe constipation may have contributed to UTI. On contact precautions - Cx from 06/27 - Tx with Macrobid BID x 10 days with progressive symptoms - Cont Ertapenem IV 1gm daily (day #5) for total 7 days, has PICC in place - CT Abd/Pelvis - the bladder wall appears circumferentially thickened, No renal calculi, moderate to severe constipation w/o bowel obstruction, mild cardiomegaly - would only need 1 day of Ertapenem at SNF after tomorrow's dose - initial blood cultures grew coag neg staph in one sample, likely contaminant - repeat blood cultures negative, no evidence of ESBL in the blood so total therapy can be 7 days Chronic Diastolic CHF with B/L Lower Extremity Edema: resume Lasix tomorrow at lower dose 40mg LV Apical Thrombus with H/O CVA: Subtherapeutic INR - Warfarin alternating Q2D with 2 mg and 4 mg prior to admission - Follow coags, INR 1.7 today again - continue increased dose Coumadin of 3mg and 4mg alternating -follow INR Complete HB S/P Pacer, CAD S/P LAD Infarct, and HTN: Follows with Dr. Gamble - Per PCP note - hypotensive in office and plan is to D/C Norvasc - held at this time and should be stopped on discharge - Atorvastatin 40 mg daily - Imdur 30 mg daily - Lisinopril 5 mg daily and Metoprolol 50 mg daily T2DM: Hyperglycemia - Hold home regimen at this time and implement SSI - may need adjustments or return to home dosing if able Bowel Regimen: Constipation with H/O BRBPR: - CT Abd/Pelvis reveals moderate fecal retention -Miralax BID, Lactulose q6, enema PRN. moved bowels 13 times on 07/15, feels much better would recommend continuing Miralax BID and can use Lactulose PRN as outpatient, she has Parkinson's - Outpatient Flex Sig scheduled with Dr. Nunez Lewy Body Dementia/Depression: - Zyprexa 15 mg daily and Zoloft 100 mg daily DVT Prophylaxis: Coumadin Code Status: FULL RESUSCITATION Plan:to SNF tomorrow
[2016-07-18 01:10] VITALS: BP 149/71; PULSE 75; TEMP 36.6; O2SAT 94
[2016-07-18 07:17] LABS: BASO % 0.1 %; BASO ABS # 0.01 K/uL (0-0.2); COMPLETE YES; EOS % 1.7 %; HEMATOCRIT 37.9 % (37-47); IG% 0.3 %; LYMPH % 25.3 %; LYMPH ABS # 1.78 K/uL (1.2-3.4); MEAN CELL VOLUME 84.8 fL (80-100); MEAN CORPUSCULAR HEMOGLOBIN 26.8 pg (25-34); MEAN CORPUSCULAR HGB CONC 31.7 g/dl (32-36); MEAN PLATELET VOLUME 10.4 fL (7.4-10.4); NEUT % 63.6 %; PLATELET COUNT 157 K/uL (130-400); RED BLOOD COUNT 4.47 M/uL (4.2-5.4); WHITE BLOOD COUNT 7.03 K/uL (4.8-10.8)
[2016-07-18 07:26] VITALS: BP 135/73; PULSE 92; TEMP 36.8; O2SAT 92
[2016-07-18 07:30] LABS: INR 2.1 (0.9-1.1); PROTHROMBIN TIME (PATIENT) 22.7 SECONDS (9.0-12.0)
[2016-07-18 07:54] LABS: BUN/CREATININE RATIO 22.1 (10-20); CALCIUM 8.3 mg/dl (8.5-10.1); CREATININE 0.85 mg/dl (0.60-1.20); MAGNESIUM 2.3 mg/dl (1.8-2.4); POTASSIUM 4.1 mmol/L (3.5-5.1)
[2016-07-18] MEDS: METOPROLOL SUCC 50MG EXT REL TAB PO SCH (08:34)
[2016-07-18] MEDS: POLYETHYLENE (MIRALAX) 17 GM PACK PO SCH (08:34)
[2016-07-18] MEDS: PANTOprazole SOD 40 MG TAB PO SCH (08:35)
[2016-07-18] MEDS: LACTULOSE SYRUP 30 GM/45 ML UDP PO PRN (08:35)
[2016-07-18] MEDS: LISINOPRIL 5 MG TAB PO SCH (08:35)
[2016-07-18] MEDS: ISOSORBIDE MONONITRATE 30 MG TABCR PO SCH (08:35)
[2016-07-18] MEDS: OLANZAPINE PO SCH ×2 (08:36)
[2016-07-18] MEDS: SERTRALINE HCL 100 MG TAB PO SCH (08:36)
[2016-07-18] MEDS: PREGABALIN 50 MG CAP PO SCH (08:45)
[2016-07-18] MEDS: INSULIN ASPART 100 UNITS/ML 3 ML PEN SC SCH ×2 (08:47→12:08)
[2016-07-18] MEDS ORDERED: FUROSEMIDE 40 MG TAB PO SCH (09:00)
[2016-07-18] MEDS ORDERED: ACET325T96 PO (10:16)
[2016-07-18] MEDS ORDERED: MRLP17 PO (10:16)
[2016-07-18] MEDS ORDERED: LSX40 PO (10:16)
[2016-07-18] MEDS ORDERED: CMD3 PO (10:16)
[2016-07-18] MEDS ORDERED: LCTL45 PO (10:16)
[2016-07-18] MEDS ORDERED: DOCU100C31 PO (10:16)
[2016-07-18] MEDS ORDERED: NVLGIPEN SC (10:22)
[2016-07-18] MEDS: ERTAPENEM IV 1 GM in SODIUM CHLOR 0.9% AD-VAN 50ML 50 ML IV SCH (10:25)
--- NOTE | 2016-07-18 10:26 | Discharge Instructions ---
Discharge Instructions Date of Service July 18, 2016. Admission Reason for Admission: ESBL UTI Discharge Discharge Diagnosis / Problem: ESBL UTI Discharge Goals Goal(s): Improve disease control, Therapeutic intervention Activity Recommendations Activity Level: Assistance Required Therapies: Physical Therapy, Occupational Therapy . Additional Information Patient informed of condition: Yes Advance Directives: Yes DNR: No Level of Care: Skilled Communicable Disease: Yes (ESBL E. coli) Prognosis: Stable Oxygen at (LPM): N/A [place] Catheter: No Instructions / Follow-Up Instructions / Follow-Up Ms. Jameson is an 81 y/o female with PMHx of Complete HB S/P Dual Chamber Pacemaker, CAD S/P LAD Infarct, Diastolic CHF, LV Apical Thrombus with H/O CVA, T2DM, HLD, HTN, and Lewy Body Dementia who presents to the ED for abdominal pain and nausea x 1 week, found to have ESBL E. coli UTI POA ESBL - MDR E. Coli UTI: Improving, BCxs remain negative, afebrile, feeling much better. Severe constipation may have contributed to UTI. On contact precautions - Cx from 06/27 - Tx with Macrobid BID x 10 days with progressive symptoms - Cont Ertapenem IV 1gm daily (day #6) for total 7 days with last dose , has PICC in place - CT Abd/Pelvis - the bladder wall appears circumferentially thickened, No renal calculi, moderate to severe constipation w/o bowel obstruction, mild cardiomegaly - initial blood cultures grew coag neg staph in one sample, likely contaminant - repeat blood cultures negative, no evidence of ESBL in the blood so total therapy can be 7 days Chronic Diastolic CHF with B/L Lower Extremity Edema: resumed Lasix at lower dose 40mg daily LV Apical Thrombus with H/O CVA: Subtherapeutic INR - Warfarin alternating Q2D with 2 mg and 4 mg prior to admission - Follow coags, INR finally therapeutic at 2.1 on day of dc - continue increased dose Coumadin of 3mg and 4mg alternating -follow INR in 1 day Complete HB S/P Pacer, CAD S/P LAD Infarct, and HTN: Follows with Dr. Gamble Cardiology - Per PCP note - hypotensive in office and plan is to D/C Norvasc - held at this time and is stopped on discharge - Atorvastatin 40 mg daily - Imdur 30 mg daily - Lisinopril 5 mg daily and Metoprolol 50 mg daily T2DM: Hyperglycemia secondary to infection, HgbA1C here 8.6% slightly above goal for her age and comorbidities - restart home regimen on discharge of 70/30 NPH and glyburide -DMII diet Bowel Regimen: Constipation with H/O BRBPR: - CT Abd/Pelvis reveals moderate fecal retention -Miralax BID, Lactulose q6, enema PRN. moved bowels 13 times on 07/15, feels much better would recommend continuing Miralax BID and can use Lactulose PRN as outpatient, she has Parkinson's - Outpatient Flex Sig scheduled with Dr. Nunez Lewy Body Dementia/Depression: - Zyprexa 15 mg daily and Zoloft 100 mg daily DVT Prophylaxis: Coumadin Code Status: FULL RESUSCITATION Plan:to SNF today Current Hospital Diet Patient's current hospital diet: Low Sodium Diet (2gm Na), AHA Diet (Heart Healthy), Diabetes Type 2 Diet Discharge Diet Recommended Diet: Low Sodium Diet (2gm Na), Diabetes Type 2 Diet Procedures Procedures Performed: PICC placement CT Abd/pel Chest xray Pending Studies Studies pending at discharge: yes List of pending studies: Final Blood culture result Physician Orders On Transfer Special Precautions: Fall risk Dressing Changes: PICC dressing IV Therapy: Ertapenem IV q24 hrs last dose 07/19/16 Vital Signs: Daily Weigh: Daily Additional Orders: Check PT/INR on 07/19/16 POLST Discussion: Not Applicable Laboratory Results Hemoglobin A1c Test 07/14/16 07:06 Range/Units Estimated Average Glucose 200 mg/dl Hemoglobin A1c 8.6 H 4.5-5.6 % Lipid Panel Test 04/28/16 12:04 Range/Units Triglycerides Level 142 0-150 mg/dl Cholesterol Level 135 0-200 mg/dl HDL Cholesterol 47 mg/dl LDL Cholesterol Direct 75 mg/dl Cholesterol/HDL Ratio 2.9 LDL Cholesterol, Calculated mg/dl Medical Emergencies . Who to Call and When: Medical Emergencies: If at any time you feel your situation is an emergency, please call 911 immediately. . Non-Emergent Contact Non-Emergency issues call your: Primary Care Provider Call Non-Emergent contact if: you have a fever, you have any medication questions . . "Provider Documentation" section prepared by Mary Mae. . Core Measure Problem Core Measures: None
[2016-07-18 10:59] VITALS: BP 139/67; PULSE 88; O2SAT 96
[2016-07-18 11:21] VITALS: BP 135/73; PULSE 92; TEMP 36.8; O2SAT 92
--- NOTE | 2016-07-18 22:51 | Discharge Summary ---
Discharge Summary Date of Service July 18, 2016. Discharge Summary Admission Date: July 13, 2016 at 15:38 Discharge Date: July 18, 2016 Discharge Disposition: [facility] facility Principal Diagnosis: ESBL UTI Problems/Secondary Diagnoses: History of complete heart block S/P Dual Chamber Pacemaker CAD S/P LAD Infarct Chronic Diastolic CHF History of LV Apical Thrombus with H/O CVA T2DM HLD HTN Lewy Body Dementia Severe constipation Long-term anticoagulation Depression Procedures: CHEST ONE VIEW PORTABLE CLINICAL HISTORY: Sepsis COMPARISON STUDY: 06/20/2016 FINDINGS: The cardiac and mediastinal contours are normal. There is no evidence of focal pulmonary consolidation. There is no evidence of failure. No pleural effusions are visualized.[ There is a left subclavian dual-chamber central venous pacemaker present. There are surgical clips at the esophagogastric junction. IMPRESSION: No active disease in the chest. CT SCAN OF THE ABDOMEN AND PELVIS WITHOUT IV CONTRAST CLINICAL HISTORY: Recurrent urinary tract infections. Generalized abdominal pain. COMPARISON STUDY: Abdominal radiograph dated 06/20/2016. TECHNIQUE: CT scan of the abdomen and pelvis is performed from the lung bases to the proximal femora. Images are reviewed in the axial, sagittal, and coronal planes. IV contrast was not administered for this examination as per the referring clinician. Automated dose control exposure was utilized. CT DOSE: 1751.34 mGy.cm FINDINGS: Lung bases: The heart is mildly enlarged and there is trace pericardial fluid. Pacemaker leads are noted. The lung bases are clear. Liver: The unenhanced liver is normal in size, contour, and attenuation. There is no intrahepatic biliary ductal dilatation. Gallbladder: Surgically absent noting clips in the gallbladder fossa. Spleen: Normal in size and attenuation. Pancreas: There is near complete fatty atrophy of the pancreas. The unenhanced pancreas is otherwise grossly unremarkable. Adrenal glands: Unremarkable. Kidneys: The unenhanced kidneys are atrophic and without hydronephrosis. There are no renal calculi identified. There is no evidence of contour deforming renal mass lesion. Abdominal vasculature: The abdominal aorta is normal in course and caliber noting moderate to advanced atherosclerotic calcification. Stomach and bowel: There is a small to moderate hiatal hernia. Postoperative change is seen in the proximal stomach. The duodenum is normal in configuration. There is no bowel obstruction. There is moderate colonic fecal retention. The appendix is not visualized. Peritoneum: Numerous surgical clips are seen throughout the upper abdomen. There is no intraperitoneal free air or abdominal ascites. Lymphadenopathy: None. Pelvic viscera: Although decompressed, the bladder wall appears circumferentially thickened. The uterus is surgically absent. No adnexal lesion is seen. Skeletal structures: The skeletal structures are osteopenic. There is mild to moderate lumbosacral spondylosis. Arthritic change is also seen in the hips. No lytic or blastic lesions are seen. IMPRESSION: 1. Although decompressed, the bladder wall appears circumferentially thickened. Correlation with clinical findings and urinalysis will be required. 2. No renal calculi are identified. 3. Moderate to severe constipation. No bowel obstruction is seen. 4. Mild cardiomegaly. 5. Numerous surgical clips are seen throughout the upper abdomen. Correlation the patient's operative history will be required. 6. Additional findings as above. Consultations: Infectious disease Medication Reconciliation New Medications: Ertapenem Sodium (Invanz) 1 Gm Inj 1 GM IV Q24H for 1 Day, #1 VIAL Acetaminophen Tab (Tylenol) 325 Mg Tab 650 MG PO Q4H PRN for Pain or Fever for 30 Days Furosemide (Furosemide) 40 Mg Tab 40 MG PO QAM for 30 Days, #30 TAB Insulin Aspart (Novolog Flexpen) 100 Units/Ml Inj 0 UNITS SC ACHS for 30 Days Lactulose (Lactulose) 30 Gm/45 Ml Syrp 30 GM PO BID PRN for Constipation for 30 Days Polyethylene (Miralax) 17 Gm Pow 17 GM PO DAILY for 30 Days Warfarin Sod (Coumadin) 3 Mg Tab 3 MG PO Q2D@1600 for 30 Days, TAB Continued Medications: Atorvastatin (Lipitor) 40 Mg Tab 40 MG PO HS, TAB Docusate Sodium (Docusate Sodium) 100 Mg Cap 200 MG PO HS for 30 Days, CAP (This prescription has been renewed) Glyburide (Micronase) 5 Mg Tab 5 MG PO DAILY, TAB Insulin Isophan/Regular (Humulin 70/30) Susp 30 SC QAM, VIAL Insulin Isophan/Regular (Humulin 70/30) Susp 12 UNITS SC QPM, VIAL Isosorbide Mononitrate Ext Rel (Imdur Ext Rel) 30 Mg Ertab 30 MG PO QAM, TAB Lisinopril (Zestril) 5 Mg Tab 5 MG PO DAILY, TAB Metoprolol Succinate (Toprol Xl) 50 Mg Tab 50 MG PO DAILY, #30 TAB Olanzapine (Zyprexa) 15 Mg Tab 15 MG PO DAILY, TAB Pantoprazole (Protonix) 40 Mg Tab 40 MG PO DAILY, TAB Pregabalin (Lyrica) 50 Mg Cap 50 MG PO QAM, CAP Pregabalin (Lyrica) 50 Mg Cap 100 MG PO HS, CAP Sertraline (Zoloft) 100 Mg Tab 100 MG PO DAILY, TAB Trazodone Hcl (Trazodone) 100 Mg Tab 100 MG PO HS, TAB Warfarin Sod (Jantoven) 4 Mg Tab 4 MG PO Q2D, TAB Discontinued Medications: Amlodipine (Norvasc) 5 Mg Tab 5 MG PO DAILY, TAB Furosemide (Lasix) 20 Mg Tab 80 MG PO DAILY, TAB Warfarin Sod (Jantoven) 4 Mg Tab 2 MG PO Q2D, TAB Referrals At Discharge Follow up Referrals: Physician Referral - Within 1-2 Weeks with Poli Baum M.D. Discharge Exam Patient doing very well on day of discharge. Has no complaints. Physical Exam General Appearance: WD/WN, no apparent distress Eyes: sclerae normal ENT: hearing grossly normal Neck: trachea midline Respiratory/Chest: lungs clear, normal breath sounds, no respiratory distress, no accessory muscle use Cardiovascular: regular rate, rhythm, no edema, no gallop, no murmur Abdomen: normal bowel sounds, non tender, soft, no pulsatile mass Extremities: non-tender, no pedal edema, no calf tenderness Neurologic/Psychiatric: alert, normal mood/affect Skin: normal color, warm/dry, no rash, PICC line in place without surrounding erythema, no drainage from site Review of Systems: Constitutional: No fever Eyes: No problem reported ENT: No problem reported Respiratory: No problem reported Cardiovascular: No problem reported Abdomen: No problem reported Musculoskeletal: No problem reported Genitourinary - Female: No problem reported Neurologic: No problem reported Psychiatric: No problem reported Endocrine: No problem reported Hematologic / Lymphatic: No problem reported Integumentary: No problem reported Hospital Course Ms. Jameson is an 81 y/o female with PMHx of Complete HB S/P Dual Chamber Pacemaker, CAD S/P LAD Infarct, Diastolic CHF, LV Apical Thrombus with H/O CVA, T2DM, HLD, HTN, and Lewy Body Dementia who presents to the ED for abdominal pain and nausea x 1 week, found to have ESBL E. coli UTI POA ESBL - MDR E. Coli UTI: Improving, BCxs remain negative, afebrile, feeling much better. Severe constipation may have contributed to UTI. On contact precautions - Cx from 06/27 - Tx with Macrobid BID x 10 days with progressive symptoms - Cont Ertapenem IV 1gm daily (day #6) for total 7 days with last dose , has PICC in place - CT Abd/Pelvis - the bladder wall appears circumferentially thickened, No renal calculi, moderate to severe constipation w/o bowel obstruction, mild cardiomegaly - initial blood cultures grew coag neg staph in one sample, likely contaminant - repeat blood cultures negative, no evidence of ESBL in the blood so total therapy can be 7 days Chronic Diastolic CHF with B/L Lower Extremity Edema: resumed Lasix at lower dose 40mg daily LV Apical Thrombus with H/O CVA: Subtherapeutic INR - Warfarin alternating Q2D with 2 mg and 4 mg prior to admission - Follow coags, INR finally therapeutic at 2.1 on day of dc - continue increased dose Coumadin of 3mg and 4mg alternating -follow INR in 1 day Complete HB S/P Pacer, CAD S/P LAD Infarct, and HTN: Follows with Dr. Gamble [facility]iology - Per PCP note - hypotensive in office and plan is to D/C Norvasc - held at this time and is stopped on discharge - Atorvastatin 40 mg daily - Imdur 30 mg daily - Lisinopril 5 mg daily and Metoprolol 50 mg daily T2DM: Hyperglycemia secondary to infection, HgbA1C here 8.6% slightly above goal for her age and comorbidities - restart home regimen on discharge of 70/30 NPH and glyburide -DMII diet Bowel Regimen: Constipation with H/O BRBPR: - CT Abd/Pelvis reveals moderate fecal retention -Miralax BID, Lactulose q6, enema PRN. moved bowels 13 times on 07/15, feels much better would recommend continuing Miralax BID and can use Lactulose PRN as outpatient, she has Parkinson's - Outpatient Flex Sig scheduled with Dr. Nunez Lewy Body Dementia/Depression: - Zyprexa 15 mg daily and Zoloft 100 mg daily DVT Prophylaxis: Coumadin Code Status: FULL RESUSCITATION Plan:to SNF today Total Time Spent: Greater than 30 minutes This includes examination of the patient, discharge planning, medication reconciliation, and communication with other providers. Discharge Instructions Please refer to the electronic Patient Visit Report (Discharge Instructions) for additional information. Follow-Up With PCP within one week after discharge to SNF Additional Copies To Poli Baum M.D.
[2016-09-23] MEDS ORDERED: FLUD0.1T PO (14:10)
[2016-11-19] MEDS ORDERED: FLUD0.1T PO (09:47)
== END 2016-07-18 12:32 | DRG 690 ==
LOC: ENRESERVTM → ENRESERVDT → C.EDB 11:52 → C.2T 15:38 → EDBEDREQSVC 07-14 10:09 → EDBEDREQ 07-14 10:09 → EDBEDREQSVC 07-14 10:13 → C.MS2W 07-14 11:43
PROVIDERS: ADMIT Internal Medicine; ATTEND Family Medicine
PROC: 02HV33Z Insertion of Infusion Device into Superior Vena Cava, Percutaneous Approach (ICD-10-PCS; principal; 2016-07-16)
DX: N39.0 Urinary tract infection, site not specified (principal); I50.32 Chronic diastolic (congestive) heart failure; I44.2 Atrioventricular block, complete; I13.0 Hypertensive heart and chronic kidney disease with heart failure and stage 1 through stage 4 chronic kidney disease, or unspecified chronic kidney disease; B96.20 Unspecified Escherichia coli [E. coli] as the cause of diseases classified elsewhere; F32.9 Major depressive disorder, single episode, unspecified; K59.00 Constipation, unspecified; G31.83 Neurocognitive disorder with Lewy bodies; F02.80 Dementia in other diseases classified elsewhere, unspecified severity, without behavioral disturbance, psychotic disturbance, mood disturbance, and anxiety; E78.5 Hyperlipidemia, unspecified; N18.9 Chronic kidney disease, unspecified; E11.65 Type 2 diabetes mellitus with hyperglycemia; E11.22 Type 2 diabetes mellitus with diabetic chronic kidney disease; R60.0 Localized edema; Z16.12 Extended spectrum beta lactamase (ESBL) resistance; R79.1 Abnormal coagulation profile; Z16.30 Resistance to unspecified antimicrobial drugs; I25.10 Atherosclerotic heart disease of native coronary artery without angina pectoris; I25.2 Old myocardial infarction; Z87.19 Personal history of other diseases of the digestive system; Z86.73 Personal history of transient ischemic attack (TIA), and cerebral infarction without residual deficits; Z95.0 Presence of cardiac pacemaker; Z86.79 Personal history of other diseases of the circulatory system; Z79.899 Other long term (current) drug therapy; Z79.84 Long term (current) use of oral hypoglycemic drugs; Z79.4 Long term (current) use of insulin; Z79.01 Long term (current) use of anticoagulants

== ENCOUNTER 2016-09-20 11:24 | Inpatient (IN) | payer BC, OTHER ==
[~2016-09-20] VITALS: Ht 152.4 cm; Wt 82.6 kg
[~2016-09-20 11:24] MED LIST changes: +ACET325T96 PO; -AMLO-110 PO; +CMD3 PO; -FURO-85 PO; +LCTL45 PO; +LSX40 PO; -METO-452 PO; +METO1TAB66 PO; +MRLP17 PO; +NVLGIPEN SC; +PANT40TA PO; -ZNTT/150 PO
[2016-09-20] MEDS ORDERED: FRS/40 PO (11:51)
[2016-09-20] MEDS ORDERED: SERT50TA PO (11:51)
[2016-09-20] MEDS ORDERED: MIDO5TAB PO (11:51)
[2016-09-20] MEDS ORDERED: MECL1TAB40 PO (11:51)
[2016-09-20] MEDS ORDERED: OLAN10TA11 PO (11:55)
[2016-09-20] MEDS ORDERED: SODIUM CHLORIDE 0.9% 500ML 500 ML IV STA (12:51)
[2016-09-20] MEDS ORDERED: SODIUM CHLORIDE 0.9% 1000ML 1,000 ML IV STA (12:51)
[2016-09-20 12:54] LABS: BASO % 0.1 %; BASO ABS # 0.01 K/uL (0-0.2); COMPLETE YES; EOS % 1.8 %; IG% 0.1 %; LYMPH % 28.2 %; LYMPH ABS # 1.93 K/uL (1.2-3.4); MEAN CELL VOLUME 80.5 fL (80-100); MEAN CORPUSCULAR HEMOGLOBIN 25.1 pg (25-34); MEAN CORPUSCULAR HGB CONC 31.1 g/dl (32-36); MEAN PLATELET VOLUME 9.7 fL (7.4-10.4); MONO % 7.6 %; NEUT % 62.2 %; PLATELET COUNT 178 K/uL (130-400); RED BLOOD COUNT 4.47 M/uL (4.2-5.4); WHITE BLOOD COUNT 6.84 K/uL (4.8-10.8)
--- NOTE | 2016-09-20 13:00 | EMERGENCY ROOM VISIT NOTE ---
History Report prepared by [place]: Abdiel Whitt Under the Supervision of: Dr. Sam Mccauley M.D. First contact with patient: 12:42 Chief Complaint: HYPOTENSION Stated Complaint: LOW BLOOD PRESSURE, DIZZY History of Present Illness The patient is an 81 year old female who presents to the Emergency Room with complaints of persistent lightheadedness with changing positions that started 2 weeks ago. She says that her symptoms started after she had a colonoscopy. The patient adds that she has just not been feeling well, and she has also had dizziness when moving. She notes that she has been urinating a lot as well. Per the patient's , the patient complained last night of left-sided symptoms, including numbness. The patient has not moved her bowels in 2 days. The patient denies any fevers, shortness of breath, fevers, new chills, hematochezia, or melena. She has not seen her doctor since her symptoms started. Per the patient's , the patient was recently started on hypertension medication (Midodrine)--although she has not been taking it. The patient's blood sugar is noted to be typically around 120 in the morning and 140 in the evening. The patient has been warm to the touch recently, per the patient's . The patient's blood pressure has been going low at times recently, as low as 70. She has a history of UTI's. The patient takes Plavix. Source of History: patient, spouse/significant other Onset: 2 weeks ago Position: other (global - lightheadedness) Timing: other (persistent) Modifying Factors (Worsening): movement Associated Symptoms: + urinary symptoms (frequent voiding), + numbness (left -sided last night), No chills (new), No SOB, No melena, No hematochezia Note: Associated symptoms: Dizziness. Hypotensive at times. No bowel movements in 2 days. Review of Systems See HPI for pertinent positives & negatives. A total of 10 systems reviewed and were otherwise negative. Past Medical & Surgical Medical Problems: (1) blood clot left ventricle (2) Diabetes (3) ESBL (extended spectrum beta-lactamase) producing bacteria infection (4) Exertional shortness of breath (5) HTN (hypertension) (6) Pacemaker (7) Stroke Family History Cancer Heart disease Hypertension Lung disease Social History Smoking Status: Never Smoker Alcohol Use: none Drug Use: none Marital Status: Housing Status: lives with family Occupation Status: retired Current/Historical Medications Scheduled Atorvastatin (Lipitor), 40 MG PO HS Clopidogrel Bisulfate (Clopidogrel), 75 MG PO DAILY Docusate Sodium (Docusate Sodium), 200 MG PO HS Furosemide (Lasix), 20 MG PO Q2D Insulin Isophan/Regular (Humulin 70/30), 34 UNIT SC QAM Insulin Isophan/Regular (Humulin 70/30), 14 UNITS SC QPM Isosorbide Mononitrate Ext Rel (Imdur Ext Rel), 30 MG PO QAM Lubiprostone (Amitiza), 24 MCG PO DAILY Metoprolol Succinate (Toprol Xl), 25 MG PO DAILY Midodrine Hcl (Midodrine Hcl), 5 MG PO BID Olanzapine (Zyprexa), 10 MG PO HS Pantoprazole (Protonix), 20 MG PO DAILY Polyethylene (Miralax), 17 GM PO DAILY Pregabalin (Lyrica), 50 MG PO TID Sertraline (Zoloft), 25 MG PO DAILY Scheduled PRN Meclizine HCl (Meclizine HCl), 12.5 MG PO Q6 PRN for dizziness Allergies Coded Allergies: Metformin (Verified Allergy, Mild, UNKNOWN, 09/20/16) Aspirin (Verified Allergy, Unknown, Unknown rxn, 09/20/16) Propoxyphene (Verified Allergy, Unknown, Unknown rxn, 09/20/16) Physical Exam Vital Signs Date Time Temp Pulse Resp B/P (MAP) Pulse Ox O2 Delivery O2 Flow Rate FiO2 09/20/16 16:01 151/68 09/20/16 16:00 66 17 09/20/16 15:56 139/57 09/20/16 15:30 65 14 09/20/16 15:00 66 19 09/20/16 14:10 69 18 119/60 09/20/16 11:51 86 155/76 87 109/70 78 111/54 09/20/16 11:46 86 09/20/16 11:28 36.9 78 18 120/75 95 Room Air Physical Exam GENERAL: Patient is in no acute distress. HEENT: No acute trauma, normocephalic atraumatic, mucous membranes moist, no nasal congestion, no scleral icterus. NECK: No stridor, no adenopathy, no meningismus, trachea is midline. LUNGS: Clear to auscultation bilaterally, no wheeze, no rhonchi, breath sounds equal. HEART: Without murmurs gallops or rubs, regular rate and rhythm. ABDOMEN: Soft, nontender, bowel sounds positive, no hernias, no peritonitis. EXTREMITIES: No cyanosis or edema, full range of motion of all the joints without pain or difficulty, no signs for acute trauma. NEUROLOGIC: Oriented x 3, no acute motor or sensory deficits, no focal weakness. No cerebellar deficits or pronator drift. SKIN: No rash, no jaundice, no diaphoresis. Medical Decision & Procedures ER Provider Diagnostic Interpretation: Orthostatic vital signs are quite positive. X-ray results as stated below per interpretation by me and the radiologist: JG CLINICAL HISTORY: constipation pain COMPARISON STUDY: 07/13/2016 FINDINGS: Increased fecal load within the a sending and transverse colon site. No evidence for fecal impaction. No obstructive characteristics. IMPRESSION: Increased fecal load within the a sending and transverse colon. This suggests a component of fecal stasis. No obstruction. The above report was generated using voice recognition software. It may contain grammatical, syntax or spelling errors. Electronically signed by: Lul Baxter M.D. 09/20/2016 1:51 PM Dictated Date/Time: 09/20/2016 1:50 PM CHEST ONE VIEW PORTABLE CLINICAL HISTORY: weakness dyspnea COMPARISON STUDY: 07/13/2016 FINDINGS: Permanent bipolar cardiac pacemaker. Diaphragms are smooth. Lungs are clear. IMPRESSION: No acute process. The above report was generated using voice recognition software. It may contain grammatical, syntax or spelling errors. Electronically signed by: Lul Baxter M.D. 09/20/2016 1:50 PM Dictated Date/Time: 09/20/2016 1:49 PM Laboratory Results 09/20/16 12:40 Red Blood Count 4.47, Mean Corpuscular Volume 80.5, Mean Corpuscular Hemoglobin 25.1, Mean Corpuscular Hemoglobin Concent 31.1, Mean Platelet Volume 9.7, Neutrophils (%) (Auto) 62.2, Lymphocytes (%) (Auto) 28.2, Monocytes (%) (Auto) 7.6, Eosinophils (%) (Auto) 1.8, Basophils (%) (Auto) 0.1, Neutrophils # (Auto) 4.25, Lymphocytes # (Auto) 1.93, Monocytes # (Auto) 0.52, Eosinophils # (Auto) 0.12, Basophils # (Auto) 0.01 09/20/16 12:40 Test 09/20/16 12:40 09/20/16 14:05 09/20/16 14:45 White Blood Count 6.84 K/uL (4.8-10.8) Red Blood Count 4.47 M/uL (4.2-5.4) Hemoglobin 11.2 g/dL (12.0-16.0) Hematocrit 36.0 % (37-47) Mean Corpuscular Volume 80.5 fL (80-100) Mean Corpuscular Hemoglobin 25.1 pg (25-34) Mean Corpuscular Hemoglobin Concent 31.1 g/dl (32-36) Platelet Count 178 K/uL (130-400) Mean Platelet Volume 9.7 fL (7.4-10.4) Neutrophils (%) (Auto) 62.2 % Lymphocytes (%) (Auto) 28.2 % Monocytes (%) (Auto) 7.6 % Eosinophils (%) (Auto) 1.8 % Basophils (%) (Auto) 0.1 % Neutrophils # (Auto) 4.25 K/uL (1.4-6.5) Lymphocytes # (Auto) 1.93 K/uL (1.2-3.4) Monocytes # (Auto) 0.52 K/uL (0.11-0.59) Eosinophils # (Auto) 0.12 K/uL (0-0.5) Basophils # (Auto) 0.01 K/uL (0-0.2) RDW Standard Deviation 46.4 fL (36.4-46.3) RDW Coefficient of Variation 15.8 % (11.5-14.5) Immature Granulocyte % (Auto) 0.1 % Immature Granulocyte # (Auto) 0.01 K/uL (0.00-0.02) Prothrombin Time 10.7 SECONDS (9.0-12.0) Prothromb Time International Ratio 1.0 (0.9-1.1) Activated Partial Thromboplast Time 23.8 SECONDS (21.0-31.0) Partial Thromboplastin Ratio 0.9 Anion Gap 3.0 mmol/L (3-11) Est Creatinine Clear Calc Drug Dose 42.7 ml/min Estimated GFR () 61.6 Estimated GFR (Non- 53.2 BUN/Creatinine Ratio 16.9 (10-20) Calcium Level 8.4 mg/dl (8.5-10.1) Magnesium Level 2.3 mg/dl (1.8-2.4) Total Bilirubin 0.3 mg/dl (0.2-1) Aspartate Amino Transf (AST/SGOT) 18 U/L (15-37) Alanine Aminotransferase (ALT/SGPT) 24 U/L (12-78) Alkaline Phosphatase 141 U/L (45-117) Troponin I < 0.015 ng/ml (0-0.045) Total Protein 7.1 gm/dl (6.4-8.2) Albumin 3.3 gm/dl (3.4-5.0) Globulin 3.8 gm/dl (2.5-4.0) Albumin/Globulin Ratio 0.9 (0.9-2) Thyroid Stimulating Hormone (TSH) 1.250 uIu/ml (0.300-4.500) Lactic Acid Level 0.9 mmol/L (0.4-2.0) Urine Color YELLOW Urine Appearance CLEAR (CLEAR) Urine pH 6.5 (4.5-7.5) Urine Specific [place] 1.010 (1.000-1.030) Urine Protein NEG (NEG) Urine Glucose (UA) NEG (NEG) Urine Ketones NEG (NEG) Urine Occult Blood NEG (NEG) Urine Nitrite NEG (NEG) Urine Bilirubin NEG (NEG) Urine Urobilinogen NEG (NEG) Urine Leukocyte Esterase NEG (NEG) Laboratory results reviewed by me. Medications Administered Medications (Trade) Dose Ordered Sig/Holden Route Start Time Stop Time Status Last Admin Dose Admin Sodium Chloride 500 ml @ 999 mls/hr Q31M STAT IV 09/20/16 12:51 09/20/16 13:21 DC 09/20/16 14:07 999 MLS/HR Sodium Chloride 1,000 ml @ 125 mls/hr Q8H STAT IV 09/20/16 12:51 09/20/16 17:20 DC 09/20/16 15:01 125 MLS/HR ECG Indication: other (dizzy) Rate (beats per minute): 96 Rhythm: other (AV pacemaker) Findings: no acute ischemic change, no ectopy ED Course 1246: The patient was evaluated in room B7. A complete history and physical exam was performed. 1251: Ordered NSS 1000 ml @ 125 mls/hr IV, NSS 500 ml @ 999 mls/hr IV. 1415: Upon reexamination the patient is resting. I discussed results and treatment plan with the patient. She verbalizes agreement and understanding. The patient will be evaluated for further management. 1418: I discussed the patient with Dr. Pam BUSBY ship scaler - he will evaluate the patient for further treatment. 1529: I reevaluated the patient and she is doing better than she was, and sitting up in bed. Medical Decision Differential diagnoses considered include dehydration, anemia, electrolyte imbalance, renal failure, UTI, cardiac ischemia, [place]. There is no leukocytosis or concerning anemia. No significant electrolyte abnormality, kidney failure or hepatitis. The patient appears to be in a euthyroid state. EKG shows AV pacemaker, no acute ischemia. Cardiac enzyme testing times one is not consistent with acute cardiac injury. Chest x-ray does not show pneumonia or CHF. Urinalysis does not show infection. Orthostatic vital signs were quite positive. Lactic acid level is not elevated making sepsis less likely. The patient received IV saline. She seems to be doing well. Given the persistent symptoms for a few weeks, given her low blood pressure at home, given the orthostatic hypotension, admission/observation is warranted. She requires further fluid resuscitation. I spoke to the patient and her , I talked with the corrections caseworker. The on-call hospitalist was consulted. Medication Reconcilliation Current Medication List: was personally reviewed by me Blood Pressure Screening Patient's blood pressure: Elevated blood pressure Blood pressure disposition: Elevated BP felt to be situational Occasionally hypertensive likely situational. Consults Time Called: 1410 Consulting Physician: Dr. Pam BUSBY ship scaler Returned Call: [phone] I discussed the patient with Dr. Pam BUSBY ship scaler - he will evaluate the patient for further treatment. Impression Primary Impression: Weakness Additional Impressions: Lightheadedness Orthostatic hypotension Scribe Attestation The scribe's documentation has been prepared under my direction and personally reviewed by me in its entirety. I confirm that the note above accurately reflects all work, treatment, procedures, and medical decision making performed by me. Departure Information Dispostion Being Evaluated By Hospitalist Referrals No Doctor, Assigned (PCP) Patient Instructions [facility] Problem Qualifiers
[2016-09-20 13:07] LABS: PARTIAL THROMBOPLASTIN RATIO 0.9; PROTHROMBIN TIME (PATIENT) 10.7 SECONDS (9.0-12.0)
[2016-09-20 13:09] LABS: ALT/SGPT 24 U/L (12-78); AST/SGOT 18 U/L (15-37); BLOOD UREA NITROGEN 17 mg/dl (7-18); BUN/CREATININE RATIO 16.9 (10-20); CALCIUM 8.4 mg/dl (8.5-10.1); CARBON DIOXIDE 31 mmol/L (21-32); CHLORIDE 107 mmol/L (98-107); GLUCOSE 119 mg/dl (70-99); POTASSIUM 4.5 mmol/L (3.5-5.1); SODIUM 141 mmol/L (136-145)
[2016-09-20 13:12] LABS: ALB/GLOB RATIO 0.9 (0.9-2); ALKALINE PHOSPHATASE 141 U/L (45-117); MAGNESIUM 2.3 mg/dl (1.8-2.4)
--- NOTE | 2016-09-20 13:51 | DIAGNOSTIC IMAGING REPORT ---
CHEST ONE VIEW PORTABLE CLINICAL HISTORY: weakness dyspnea COMPARISON STUDY: 07/13/2016 FINDINGS: Permanent bipolar cardiac pacemaker. Diaphragms are smooth. Lungs are clear. IMPRESSION: No acute process. The above report was generated using voice recognition software. It may contain grammatical, syntax or spelling errors. Electronically signed by: Lul Baxter M.D. 09/20/2016 1:50 PM Dictated Date/Time: 09/20/2016 1:49 PM
--- NOTE | 2016-09-20 13:52 | DIAGNOSTIC IMAGING REPORT ---
JG CLINICAL HISTORY: constipation pain COMPARISON STUDY: 07/13/2016 FINDINGS: Increased fecal load within the a sending and transverse colon site. No evidence for fecal impaction. No obstructive characteristics. IMPRESSION: Increased fecal load within the a sending and transverse colon. This suggests a component of fecal stasis. No obstruction. The above report was generated using voice recognition software. It may contain grammatical, syntax or spelling errors. Electronically signed by: Lul Baxter M.D. 09/20/2016 1:51 PM Dictated Date/Time: 09/20/2016 1:50 PM
[2016-09-20 15:14] LABS: URINE APPEARANCE CLEAR (CLEAR); URINE BILIRUBIN NEG (NEG); URINE COLOR YELLOW; URINE NITRITE NEG (NEG); URINE PH 6.5 (4.5-7.5); UROBILINOGEN NEG (NEG)
[2016-09-20 15:19] LABS: MANUAL MICROSCOPIC REQUIRED? NO; REVIEW REQ? NO
[2016-09-20] MEDS ORDERED: PLV75 PO (15:31)
[2016-09-20] MEDS ORDERED: AMT/8 PO (15:31)
[2016-09-20] MEDS ORDERED: ONDANSETRON INJ 2 MG/ML 2 ML VIAL IV PRN (15:45)
[2016-09-20] MEDS ORDERED: MAGNESIUM HYDROXIDE SUSP 30 ML UDC PO PRN (15:45)
[2016-09-20] MEDS ORDERED: IV FLUIDS COMPLETED PRN ×2 (15:45→16:15)
[2016-09-20] MEDS ORDERED: ALUMINUM/MAGNESIUM/SIMETH (MAALOX MAX) 30 ML UDC PO PRN (15:45)
[2016-09-20] MEDS ORDERED: MECLIZINE HCL 12.5 MG TAB PO PRN (15:45)
[2016-09-20] MEDS ORDERED: GLUCOSE 40% GEL 15 GM TUBE PO PRN (16:15)
[2016-09-20] MEDS ORDERED: GLUCAGON FOR INJ 1 MG VIAL SQ PRN (16:15)
[2016-09-20] MEDS ORDERED: GLUCOSE 10 TABS/TUBE PO PRN (16:15)
[2016-09-20] MEDS ORDERED: POLYETHYLENE (MIRALAX) 17 GM PACK PO PRN (16:15)
[2016-09-20] MEDS ORDERED: DEXTROSE 50% 50 ML SYR IV PRN (16:15)
--- NOTE | 2016-09-20 16:15 | History and Physical ---
History & Physical Date & Time of Service: Sep 20, 2016 at 15:41 Chief Complaint: Low Blood Pressure, Dizzy Primary Care Physician: Poli Baum M.D. History of Present Illness Source: patient, spouse, clinic records, hospital records This is a 81 y/o female with a history of orthostatic hypotension, h/o BPPV, CAD , h/o WI, h/o complete heart block s/p pacemaker placement, HTN, HLD, chronic diastolic CHF, anemia, DM II w/neuropathy, anxiety and depression, chronic constipation, and GERD who presented to the ED on 09/20 with dizziness, lightheadedness and hypotension. The patient states she has had lightheadedness and dizziness over the past few weeks upon standing. She denies any symptoms in other positions. She denies any falls or loss of consciousness. The patient states she has some nausea intermittently but denies vomiting. She does admit to a headache and cough that is sometimes productive. She complains of some weakness, and she was just recently discharged from a rehab facility. The patient states that last night she had some numbness on her left side, but this resolved today. Upon review of the patient's outpatient records, she has a history of autonomic instability for which she was prescribed midodrine, but the patient's who controls her medications has not been giving it to her. She also has a history of BPPV and was prescribed meclizine, but again the has not been giving her this medication either. The patient denies fevers, chills, sweats, chest pain, palpitations, claudication, wheezing, shortness of breath, vomiting, abdominal pain, dysuria, hematuria, urinary retention, paralysis. Past Medical/Surgical History Medical Problems: (1) blood clot left ventricle Status: Resolved (2) Diabetes mellitus type 2 Status: Chronic (3) Exertional shortness of breath Status: Chronic (4) HTN (hypertension) Status: Chronic (5) Pacemaker Status: Chronic (6) Stroke Status: Resolved H/o WI HLD Anxiety/depression GERD Family History Cancer Heart disease Hypertension Lung disease Social History Smoking Status: Never Smoker Smokeless Tobacco Use: No Alcohol Use: none Drug Use: none Marital Status: Housing status: lives with significant other Occupational Status: retired Allergies Coded Allergies: Metformin (Verified Allergy, Mild, UNKNOWN, 09/20/16) Aspirin (Verified Allergy, Unknown, Unknown rxn, 09/20/16) Propoxyphene (Verified Allergy, Unknown, Unknown rxn, 09/20/16) Home Medications Scheduled Atorvastatin (Lipitor), 40 MG PO HS Clopidogrel Bisulfate (Clopidogrel), 75 MG PO DAILY Docusate Sodium (Docusate Sodium), 200 MG PO HS Furosemide (Lasix), 20 MG PO Q2D Insulin Isophan/Regular (Humulin 70/30), 34 UNIT SC QAM Insulin Isophan/Regular (Humulin 70/30), 14 UNITS SC QPM Isosorbide Mononitrate Ext Rel (Imdur Ext Rel), 30 MG PO QAM Lubiprostone (Amitiza), 24 MCG PO DAILY Metoprolol Succinate (Toprol Xl), 25 MG PO DAILY Midodrine Hcl (Midodrine Hcl), 5 MG PO BID Olanzapine (Zyprexa), 10 MG PO HS Pantoprazole (Protonix), 20 MG PO DAILY Polyethylene (Miralax), 17 GM PO DAILY Pregabalin (Lyrica), 50 MG PO TID Sertraline (Zoloft), 25 MG PO DAILY Scheduled PRN Meclizine HCl (Meclizine HCl), 12.5 MG PO Q6 PRN for dizziness Review of Systems Constitutional: + weakness, No fever, No chills, No sweats, No fatigue Eyes: No worsening of vision, No eye pain, No diplopia ENT: No hearing loss, No sore throat, No trouble swallowing Respiratory: + cough, No wheezing, No shortness of breath Cardiovascular: No chest pain, No claudication, No palpitations Abdomen: + nausea, + constipation (last BM 2 days ago), No pain, No vomiting Musculoskeletal: No joint pain, No muscle pain, No calf pain Genitourinary - Female: + urinary frequency, No dysuria, No urinary retention, No hematuria Neurologic: + numbness/tingling (resolved), No paralysis, No weakness Integumentary: No rash, No itch, No color change Physical Exam Vital Signs Date Time Temp Pulse Resp B/P (MAP) Pulse Ox O2 Delivery O2 Flow Rate FiO2 09/20/16 14:10 69 18 119/60 09/20/16 11:51 86 155/76 87 109/70 78 111/54 09/20/16 11:46 86 09/20/16 11:28 36.9 78 18 120/75 95 Room Air General appearance: +Obese. Well-developed, well-nourished, no apparent distress Head: Normocephalic, atraumatic Eyes: Normal inspection, PERRL, EOMI ENT: Normal ENT inspection, hearing grossly normal, pharynx normal Neck: Supple, no JVD, trachea midline Respiratory/Chest: Lungs clear to auscultation, normal breath sounds, no respiratory distress Cardiovascular: Regular rate & rhythm, no gallop, no murmur Abdomen/GI: +Mild diffuse tenderness. Normal bowel sounds, soft Extremities/Musculoskeletal: Normal inspection, no calf tenderness, no pedal edema Neurological/Psych: Alert, normal mood/affect, oriented x 3 Skin: Normal color, warm/dry, no rash Diagnostics Laboratory Results Results Past 24 Hours Test 09/20/16 12:40 09/20/16 14:05 09/20/16 14:14 09/20/16 14:45 Range/Units White Blood Count 6.84 4.8-10.8 K/uL Red Blood Count 4.47 4.2-5.4 M/uL Hemoglobin 11.2 12.0-16.0 g/dL Hematocrit 36.0 37-47 % Mean Corpuscular Volume 80.5 80-100 fL Mean Corpuscular Hemoglobin 25.1 25-34 pg Mean Corpuscular Hemoglobin Concent 31.1 32-36 g/dl Platelet Count 178 130-400 K/uL Mean Platelet Volume 9.7 7.4-10.4 fL Neutrophils (%) (Auto) 62.2 % Lymphocytes (%) (Auto) 28.2 % Monocytes (%) (Auto) 7.6 % Eosinophils (%) (Auto) 1.8 % Basophils (%) (Auto) 0.1 % Neutrophils # (Auto) 4.25 1.4-6.5 K/uL Lymphocytes # (Auto) 1.93 1.2-3.4 K/uL Monocytes # (Auto) 0.52 0.11-0.59 K/uL Eosinophils # (Auto) 0.12 0-0.5 K/uL Basophils # (Auto) 0.01 0-0.2 K/uL RDW Standard Deviation 46.4 36.4-46.3 fL RDW Coefficient of Variation 15.8 11.5-14.5 % Immature Granulocyte % (Auto) 0.1 % Immature Granulocyte # (Auto) 0.01 0.00-0.02 K/uL Prothrombin Time 10.7 9.0-12.0 SECONDS Prothromb Time International Ratio 1.0 0.9-1.1 Activated Partial Thromboplast Time 23.8 21.0-31.0 SECONDS Partial Thromboplastin Ratio 0.9 Sodium Level 141 136-145 mmol/L Potassium Level 4.5 3.5-5.1 mmol/L Chloride Level 107 98-107 mmol/L Carbon Dioxide Level 31 21-32 mmol/L Anion Gap 3.0 3-11 mmol/L Blood Urea Nitrogen 17 7-18 mg/dl Creatinine 1.00 0.60-1.20 mg/dl Est Creatinine Clear Calc Drug Dose 42.7 ml/min Estimated GFR () 61.6 Estimated GFR (Non- 53.2 BUN/Creatinine Ratio 16.9 10-20 Random Glucose 119 70-99 mg/dl Calcium Level 8.4 8.5-10.1 mg/dl Magnesium Level 2.3 1.8-2.4 mg/dl Total Bilirubin 0.3 0.2-1 mg/dl Aspartate Amino Transf (AST/SGOT) 18 15-37 U/L Alanine Aminotransferase (ALT/SGPT) 24 12-78 U/L Alkaline Phosphatase 141 45-117 U/L Troponin I < 0.015 0-0.045 ng/ml Total Protein 7.1 6.4-8.2 gm/dl Albumin 3.3 3.4-5.0 gm/dl Globulin 3.8 2.5-4.0 gm/dl Albumin/Globulin Ratio 0.9 0.9-2 Thyroid Stimulating Hormone (TSH) 1.250 0.300-4.500 uIu/ml Lactic Acid Level 0.9 0.4-2.0 mmol/L Bedside Glucose 89 70-90 mg/dl Urine Color YELLOW Urine Appearance CLEAR CLEAR Urine pH 6.5 4.5-7.5 Urine Specific [place] 1.010 1.000-1.030 Urine Protein NEG NEG Urine Glucose (UA) NEG NEG Urine Ketones NEG NEG Urine Occult Blood NEG NEG Urine Nitrite NEG NEG Urine Bilirubin NEG NEG Urine Urobilinogen NEG NEG Urine Leukocyte Esterase NEG NEG Microbiology Results 09/20/16 Blood Culture, Received Pending 09/20/16 Blood Culture, Received Pending 09/20/16 Urine Culture, Received Pending 09/20/16 Urine Culture, Received Pending Diagnostic Radiology Reviewed the following studies and agree with interpretation as follows: Patient Name: YINA SYKES Unit Number: [id number] Dictated: 09/20/16 1350 Transcribed: 09/20/16 1350 MS Printed Date/Time: [~ rep prt dt]/[~ rep prt tm] [~ rep ct labl] - [~ rep ct ivnm] [facility] Radiology Department [place], [place] [id number] Dictated: 09/20/16 1350 Transcribed: 09/20/16 1350 MS Printed Date/Time: [~ rep prt dt]/[~ rep prt tm] [~ rep ct labl] - [~ rep ct ivnm] Patient: YINA SYKES Address1: [address] [place] [address] [address] [facility] Rec: [id number] Address2: Acct ID: [id number] [facility] Zip: [place] [address] Date: 1935 Sex: F Room/Bed: Ref Phy: Poli Baum M.D. SC: LIA Att Phy: Report #: [id number] Jimena Phy: Poli Baum M.D. Test: KUB Admit Phy: Blasting Helper: CAMMIE Interpreting Phy: Lul Baxter M.D. Diagnosis: LOW BLOOD PRESSURE, DIZZY Ordering Phy: Sam Mccauley M.D. Service Date: 09/20/16 Admit Date: 09/20/16 MNE: PWRSCRIBE CONF: DICTATED BY: Lul Baxter M.D.]] CC: Sam Mccauley M.D. Murray, Michael ., M.D. Endcc: [~ rep ct add3]] KUB CLINICAL HISTORY: constipation pain COMPARISON STUDY: 07/13/2016 FINDINGS: Increased fecal load within the a sending and transverse colon site. No evidence for fecal impaction. No obstructive characteristics. IMPRESSION: Increased fecal load within the a sending and transverse colon. This suggests a component of fecal stasis. No obstruction. The above report was generated using voice recognition software. It may contain grammatical, syntax or spelling errors. Electronically signed by: Lul Baxter M.D. 09/20/2016 1:51 PM Dictated Date/Time: 09/20/2016 1:50 PM The status of this report is Signed. Draft = Not yet reviewed or approved by Radiologist. Signed = Reviewed and approved by Radiologist. <AttendingPhy></AttendingPhy> <FamilyPhy>Poli Baum M.D.</FamilyPhy> < PrimaryPhy>Poli Baum M.D.</PrimaryPhy> <UnitNumber>[id number]</ UnitNumber> <VisitNumber>[id number]</VisitNumber> <PatientName>YINA SYKES< /PatientName> <DateOfBirth>1935</DateOfBirth> <Location>C.EDB</Location> < ServiceDate>09/20/16</ServiceDate> <MNE>ESINDI</MNE> <OrderingPhy>Sam Mccauley M.D.</OrderingPhy> <OrderingPhyMNE>f rep ord dr goss</OrderingPhyMNE> < DictatingPhyMNE>f rep dict dr goss</DictatingPhyMNE> <CCListMNE>f rep ct mne</ CCListMNE> <AdmittingPhyMNE>f pt admit dr goss</AdmittingPhyMNE> <AttendingPhyMNE >f pt attend dr goss</AttendingPhyMNE> <ConsultingPhyMNE>f pt consult dr goss</ConsultingPhyMNE> <FamilyPhyMNE>f pt fam dr goss</FamilyPhyMNE> <OtherPhyMNE>f pt other dr goss</OtherPhyMNE> < PrimaryPhyMNE>f pt prim care dr goss</PrimaryPhyMNE> <ReferringPhyMNE>f pt referring dr goss</ReferringPhyMNE> Patient Name: YINA SYKES Unit Number: [id number] Dictated: 09/20/16 1349 Transcribed: 09/20/16 1349 MS Printed Date/Time: [~ rep prt dt]/[~ rep prt tm] [~ rep ct labl] - [~ rep ct ivnm] [facility] [place] [address] Dictated: 09/20/16 1349 Transcribed: 09/20/16 1349 MS Printed Date/Time: [~ rep prt dt]/[~ rep prt tm] [~ rep ct labl] - [~ rep ct ivnm] Patient: YINA SYKES Address1: [address] [facility] [address] [facility] Rec: [id number] Address2: Acct ID: [id number] [facility] Zip: [place] [address] Date: 1935 Sex: F Room/Bed: Ref Phy: Poli Baum M.D. SC: LIA Att Phy: Report #: [id number] Jimena Phy: Poli Baum M.D. Test: CXR1P Admit Phy: Blasting Helper: CAMMIE Interpreting Phy: Lul Baxter M.D. Diagnosis: LOW BLOOD PRESSURE, DIZZY Ordering Phy: Sam Mccauley M.D. Service Date: 09/20/16 Admit Date: 09/20/16 MNE: PWRSCRIBE CONF: DICTATED BY: Lul Baxter M.D.]] CC: Sam Mccauley M.D. Murray, Michael ., M.D. Endcc: [~ rep ct add3]] CHEST ONE VIEW PORTABLE CLINICAL HISTORY: weakness dyspnea COMPARISON STUDY: 07/13/2016 FINDINGS: Permanent bipolar cardiac pacemaker. Diaphragms are smooth. Lungs are clear. IMPRESSION: No acute process. The above report was generated using voice recognition software. It may contain grammatical, syntax or spelling errors. Electronically signed by: Lul Baxter M.D. 09/20/2016 1:50 PM Dictated Date/Time: 09/20/2016 1:49 PM The status of this report is Signed. Draft = Not yet reviewed or approved by Radiologist. Signed = Reviewed and approved by Radiologist. <AttendingPhy></AttendingPhy> <FamilyPhy>Poli Baum M.D.</FamilyPhy> < PrimaryPhy>Baum, Poli ., M.D.</PrimaryPhy> <UnitNumber>[id number]</ UnitNumber> <VisitNumber>[id number]</VisitNumber> <PatientName>YINA SYKES< /PatientName> <DateOfBirth>1935</DateOfBirth> <Location>C.EDB</Location> < ServiceDate>09/20/16</ServiceDate> <MNE>ESINDI</MNE> <OrderingPhy>Sam Mccauley M.D.</OrderingPhy> <OrderingPhyMNE>f rep ord dr goss</OrderingPhyMNE> < DictatingPhyMNE>f rep dict dr goss</DictatingPhyMNE> <CCListMNE>f rep ct mne</ CCListMNE> <AdmittingPhyMNE>f pt admit dr goss</AdmittingPhyMNE> <AttendingPhyMNE >f pt attend dr goss</AttendingPhyMNE> <ConsultingPhyMNE>f pt consult dr goss</ConsultingPhyMNE> <FamilyPhyMNE>f pt fam dr goss</FamilyPhyMNE> <OtherPhyMNE>f pt other dr goss</OtherPhyMNE> < PrimaryPhyMNE>f pt prim care dr goss</PrimaryPhyMNE> <ReferringPhyMNE>f pt referring dr goss</ReferringPhyMNE> EKG Reviewed EKG and agree with interpretation as follows: 95 bpm, AV paced rhythm Impression Assessment and Plan 81 y/o female with a history of orthostatic hypotension, h/o BPPV, CAD, h/o WI, h/o complete heart block s/p pacemaker placement, HTN, HLD, chronic diastolic CHF, anemia, DM II w/neuropathy, anxiety and depression, dementia with Lewey bodies, chronic constipation, and GERD who presented to the ED on 09/20 with dizziness, lightheadedness and hypotension. Patient with positive orthostasis with BP of 155/76 while supine and 111/54 while standing. Pt had been prescribed midodrine but not taking it. CXR shows no acute disease. KUB shows increased fecal load and fecal stasis. Labs grossly unremarkable. Pt received 500 cc NSS bolus and IVF in ED. Orthostatic hypotension, BPPV, weakness -Admit to med/surg for observation -Hydrate with gentle IVF, NSS at 75 cc/hr -Hold metoprolol and amlodipine. Pt is actually not sure if she even takes the metoprolol at all anymore. mentions many of her meds were recently cut , although the pharmacy shows metoprolol was recently filled -Hold Lasix for now -Orthostatic BPs q shift -Continue midodrine 5 mg PO BID -Continue meclizine 12.5 mg PO q6h prn dizziness/vertigo -PT/OT evaluate and treat -Urine and blood cultures pending CAD, h/o WI -Continue Plavix 75 mg PO qd, Imdur 30 mg PO qd HTN--stable -Hold amlodipine and metoprolol HLD -Continue atorvastatin 40 mg PO qd Chronic diastolic CHF--stable, no acute exacerbation -Gentle IVF, carefully monitor -Hold Lasix for now due to increased dizziness/hypotension Anemia--stable, unknown etiology -Hgb 11.2 on admission, around baseline DM II--last HgbA1c checked on 8.6 on 07/14/16 -Hold home Humulin -Insulin sliding scale -Check BSGs q ac and qhs -Continue Lyrica 50 mg PO TID Anxiety and depression -Continue Zoloft 25 mg PO qd Dementia with Lewey bodies -Continue Zyprexa 10 mg PO qhs DVT prophylaxis -Enoxaparin 40 mg SC q24h -SAADIA Kc Code Status -Level I, FULL RESUSCITATION STATUS I personally interviewed and examined the patient I discussed the above plan with Miss Elicia Muro / SHANNON I agree with her Hx and PE 81 y/o/f with PMHx of orthostatic hypotension, complete heart block s/p PPM , dementia with Lewey bodies, chronic constipation, and GERD . she had a colonoscopy few weeks ago and since then she has been complaining of spells of dizziness, lightheadedness when she stands up. yesterday complained from left sided upper and lower ext numbness which resolved now. In ED she had positive orthostasis with BP of 155/76 while supine and 111/54 while standing. Pt had been prescribed midodrine but not taking it. was prescribed Meclizine and midodrin as an out patient but has not started it yet . ROS/PMHx: as HPI FHx/SHx/labs/meds reviewed as needed PE: obese, not in acute distress LUNGs: normal exam, no wheezing/R Heart: s1/s2 normal, no G/R/M ABD: soft, ND, N tender Ext: B/L LE no edema or swelling Neuro: pleasant,AAOX3, EOMI, moves all ext, CN 2-12 intact Assessment: Orthostatic hypotension, possibly medication are contributing to that unsure if she is taking her meds correctly (contradiction between record and what she is saying, she said that she takes lasix every other day and not taking metoprolol anymore instead she takes norvasc ? ) left sided numbness resolved (possibly hypotension related or TIA) DM with possible neuropathy HTN Anemia Dyslipidemia Plan: admit to telemetry since her left sided numbness happened yesterday and completely resolved, will do US carotid and CT head only. said that she had full work up in the past adjust medication accordingly IVF hydration, repeat orthostatic pressure tomorrow Jabari Hose / compression stocks start midodrin as per out patient physician anemia study done in may 2016 indicates anemia of chronic diseases HgbA1C, possible neuropathy plavix/statin Level of Care Med/Surg Resuscitation Status FULL RESUSCITATION VTE Prophylaxis VTE Risk Assessment Done? Y/N: Yes Risk Level: Moderate Given or contraindicated: Enoxaparin (Lovenox)SQ, T.E.D. Stockings, SCD's
[2016-09-20 17:27] VITALS: BP 161/75; PULSE 86; TEMP 36.8; O2SAT 93
[2016-09-20] MEDS: SODIUM CHLORIDE 0.9% 1000ML 1,000 ML IV SCH (17:43)
[2016-09-20 17:56] VITALS: BP 161/75; PULSE 86; TEMP 36.8; Ht 152.4 cm; Wt 82.6 kg
[2016-09-20] MEDS: MIDODRINE 2.5 MG TAB PO SCH (18:12)
[2016-09-20] MEDS: INSULIN ASPART 100 UNITS/ML 3 ML PEN SC SCH (20:41)
--- NOTE | 2016-09-20 21:43 | DIAGNOSTIC IMAGING REPORT ---
CAROTID ARTERY ULTRASOUND CLINICAL HISTORY: Left-sided numbness. COMPARISON STUDY: None. TECHNIQUE: Real-time, grayscale, and color Doppler sonography of the carotid and vertebral arteries was performed. Images were viewed in the transverse and longitudinal planes. FINDINGS: There is mild atherosclerotic plaque. Velocity measurements are listed below. COMMON CAROTID PEAK SYSTOLIC VELOCITY (CM/S): RIGHT LEFT 93 ICA PEAK SYSTOLIC VELOCITY (CM/S): RIGHT 66 LEFT 92 The systolic ratios between the internal to common carotid arteries were normal. Antegrade flow is seen in the vertebral arteries. The external carotid arteries are patent. Blood pressure in the right arm measured 186/77. Blood pressure in the left arm measured 172/59. IMPRESSION: 1. No evidence of a hemodynamically significant stenosis. 2. Elevated blood pressure, as above. Electronically signed by: Ruben Cadet M.D. 09/20/2016 9:42 PM Dictated Date/Time: 09/20/2016 9:40 PM
--- NOTE | 2016-09-20 21:47 | DIAGNOSTIC IMAGING REPORT ---
CT OF THE HEAD WITHOUT CONTRAST CLINICAL HISTORY: Left sided numbness. COMPARISON STUDY: No previous studies for comparison. CT DOSE: 537.48 mGy.cm TECHNIQUE: Helical axial images of the head were obtained without IV contrast. Automated exposure control was utilized for the study. A dose lowering technique was utilized adhering to the principles of ALARA. FINDINGS: No acute intracranial hemorrhage, midline shift or mass effect is present. Ventricular system is normal for age. The basilar cisterns are patent. There are no extra-axial collections. Mild white matter hypodensity suggests small vessel disease. There are no findings to suggest acute dural sinus thrombosis or acute territorial infarct. There is no calvarial fracture. There may be several opacified left mastoid air cells. IMPRESSION: No acute intracranial findings. Electronically signed by: Ruben Cadet M.D. 09/20/2016 9:46 PM Dictated Date/Time: 09/20/2016 9:42 PM
[2016-09-20] MEDS: ENOXAPARIN 40 MG/0.4 ML SYR SC SCH (22:06)
[2016-09-20] MEDS: OLANZAPINE 10 MG TAB PO SCH (22:06)
[2016-09-20] MEDS: PREGABALIN 50 MG CAP PO SCH (22:06)
[2016-09-20] MEDS: ATORVASTATIN 40 MG TAB PO SCH (22:06)
[2016-09-20] MEDS: DOCUSATE SODIUM 100 MG CAP PO SCH (22:06)
[2016-09-21 00:28] VITALS: BP 146/75; PULSE 79; TEMP 36.5; O2SAT 92
[2016-09-21] MEDS: INSULIN ASPART 100 UNITS/ML 3 ML PEN SC SCH ×4 (06:30→20:41)
[2016-09-21 07:37] VITALS: BP_SYST 124; BP_SYST 145; BP_SYST 164; BP_DIAS 72; BP_DIAS 73; BP_DIAS 75; PULSE 76; PULSE 80; PULSE 82; TEMP 37.1; O2SAT 92
[2016-09-21 07:38] LABS: BASO % 0.2 %; BASO ABS # 0.01 K/uL (0-0.2); COMPLETE YES; EOS % 1.8 %; HEMATOCRIT 35.6 % (37-47); IG% 0.2 %; LYMPH % 29.6 %; LYMPH ABS # 1.81 K/uL (1.2-3.4); MEAN CELL VOLUME 81.7 fL (80-100); MEAN CORPUSCULAR HEMOGLOBIN 25.7 pg (25-34); MEAN CORPUSCULAR HGB CONC 31.5 g/dl (32-36); MEAN PLATELET VOLUME 10.2 fL (7.4-10.4); NEUT % 61.2 %; PLATELET COUNT 161 K/uL (130-400); RED BLOOD COUNT 4.36 M/uL (4.2-5.4); WHITE BLOOD COUNT 6.11 K/uL (4.8-10.8)
[2016-09-21] MEDS: SODIUM CHLORIDE 0.9% 1000ML 1,000 ML IV SCH (07:58)
[2016-09-21] MEDS: POLYETHYLENE (MIRALAX) 17 GM PACK PO SCH (07:58)
[2016-09-21] MEDS: SERTRALINE HCL 50 MG TAB PO SCH (07:59)
[2016-09-21] MEDS: PANTOprazole SOD 40 MG TAB PO SCH (07:59)
[2016-09-21] MEDS: CLOPIDOGREL BISULFATE 75 MG TAB PO SCH (08:00)
[2016-09-21] MEDS: MIDODRINE 2.5 MG TAB PO SCH (08:00)
[2016-09-21 08:06] LABS: BUN/CREATININE RATIO 15.2 (10-20); CALCIUM 8.5 mg/dl (8.5-10.1); CREATININE 0.86 mg/dl (0.60-1.20); MAGNESIUM 2.2 mg/dl (1.8-2.4); POTASSIUM 4.2 mmol/L (3.5-5.1)
[2016-09-21 08:08] LABS: ALB/GLOB RATIO 0.8 (0.9-2); PHOSPHORUS 2.4 mg/dl (2.5-4.9)
[2016-09-21] MEDS: PREGABALIN 50 MG CAP PO SCH ×3 (08:24→20:43)
[2016-09-21] MEDS ORDERED: ISOSORBIDE MONONITRATE 30 MG TABCR PO SCH (09:00)
[2016-09-21 13:29] VITALS: BP 125/60; PULSE 73; O2SAT 95
[2016-09-21 14:36] VITALS: BP 150/71; PULSE 71; TEMP 36.9; O2SAT 94
--- NOTE | 2016-09-21 14:52 | Hospitalist Progress Note ---
Hospitalist Progress Note Date of Service Sep 21, 2016. Subjective Pt evaluation today including: conversation w/ patient, conversation w/ family , physical exam, chart review, lab review, review of studies, review of inpatient medication list Patient seen and evaluated. No acute events overnight. Positive orthostatic reading. Had long discussion with patient and about current medication regimen which he does not appear to have a complete understanding of. Reports that there has been many changes and "they took a lot of bottles away but I do not know which ones" referring to home health nurses. He can recall that some medications were cut "in half" but cannot adequately say which ones. States Coumadin was D/C'd and she has just been placed on Plavix. Spent a lot of time reviewing previous admission medications/dosing and discussing with [facility] which shows some discrepancies Some of these issues are Toprol XL 25 was filled August 04 (30 pills) and a script from [facility] given for 50 mg but pharmacy reports that they instructed to only do the 25 mg - which given current date she should have theoretically ran out of this medication There is a recent Amlodipine Rx for 2.5 mg daily but last admission per report this medication was to be stopped She was previously on Lisinopril with last Rx given on August 24 reports that he hasn't followed up in-person with PCP since they have [facility] and visiting nurses. Discussed with patient and that we will develop a simplified approach to try and appropriately treat underlying conditions and address orthostasis Is reporting she currently does not have L arm numbness/tingling and while in the room she stated her L leg was flaring up but stated "it doesn't feel weak" Constitutional: + problem reported (dizziness with positional changes - improving), No fever, No chills Eyes: No worsening of vision, No eye pain ENT: No unusual epistaxis, No nasal symptoms, No trouble swallowing Respiratory: No cough, No shortness of breath Cardiovascular: No chest pain, No palpitations Abdomen: No pain, No nausea, No vomiting, No diarrhea, No constipation Musculoskeletal: No swelling, No calf pain Female : No dysuria Neurologic: + numbness/tingling (chronic and intermittent) Skin: No rash Medications Current Inpatient Medications Medications (Trade) Dose Ordered Sig/Holden Route Start Time Stop Time Status Last Admin Dose Admin Enoxaparin Sodium (Lovenox Inj) 40 mg Q24H SC 09/20/16 22:00 10/20/16 21:59 09/20/16 22:06 40 MG Acetaminophen (Tylenol Tab) 650 mg Q4H PRN PO 09/20/16 15:45 10/20/16 15:44 Al Hydrox/Mg Hydrox/Simethicone (Maalox Max Susp) 15 ml Q4H PRN PO 09/20/16 15:45 10/20/16 15:44 Magnesium Hydroxide (Milk Of Magnesia Susp) 30 ml Q12H PRN PO 09/20/16 15:45 10/20/16 15:44 Ondansetron HCl (Zofran Inj) 4 mg Q6H PRN IV 09/20/16 15:45 10/20/16 15:44 Polyethylene (Miralax Powder Packet) 17 gm DAILY PRN PO 09/20/16 16:15 10/20/16 16:14 Atorvastatin Calcium (Lipitor Tab) 40 mg HS PO 09/20/16 21:00 10/20/16 20:59 09/20/16 22:06 40 MG Clopidogrel Bisulfate (plAVix TAB) 75 mg DAILY PO 09/21/16 09:00 10/21/16 08:59 09/21/16 08:00 75 MG Docusate Sodium (coLACE CAP) 200 mg HS PO 09/20/16 21:00 10/20/16 20:59 09/20/16 22:06 200 MG Olanzapine (Zyprexa Tab) 10 mg HS PO 09/20/16 21:00 10/20/16 20:59 09/20/16 22:06 10 MG Pantoprazole Sodium (Protonix Tab) 40 mg DAILY PO 09/21/16 09:00 10/21/16 08:59 09/21/16 07:59 40 MG Polyethylene (Miralax Powder Packet) 17 gm DAILY PO 09/21/16 09:00 10/21/16 08:59 09/21/16 07:58 17 GM Pregabalin (Lyrica Cap) 50 mg TID PO 09/20/16 21:00 10/20/16 20:59 09/21/16 08:24 50 MG Sertraline HCl (Zoloft Tab) 25 mg DAILY PO 09/21/16 09:00 8/26/17 08:59 09/21/16 07:59 25 MG Miscellaneous (Iv Fluids Completed) 1 ea PRN PRN N/A 09/20/16 15:45 09/20/17 15:44 Miscellaneous (Iv Fluids Completed) 1 ea PRN PRN N/A 09/20/16 16:15 09/20/17 16:14 Insulin Aspart (novoLOG ASPART) SLIDING SCALE If C... ACHS SC 09/20/16 21:00 10/20/16 20:59 09/21/16 12:20 2 UNITS Glucose (Glucose 40% Gel) 15-30 GRAMS 15 GRAMS... UD PRN PO 09/20/16 16:15 10/20/16 16:14 Glucose (Glucose Chew Tab) 4-8 Tablets 4 Tabl... UD PRN PO 09/20/16 16:15 10/20/16 16:14 Dextrose (Dextrose 50% 50ML Syringe) 25-50ML OF 50% DW IV FOR... UD PRN IV 09/20/16 16:15 10/20/16 16:14 Glucagon (Glucagon Inj) 1 mg UD PRN SQ 09/20/16 16:15 10/20/16 16:14 Fludrocortisone Acetate (Florinef Tab) 0.1 mg QAM PO 09/22/16 09:00 10/22/16 08:59 Objective Vital Signs Date Time Temp Pulse Resp B/P (MAP) Pulse Ox O2 Delivery O2 Flow Rate FiO2 09/21/16 13:29 73 95 09/21/16 09:49 Room Air 09/21/16 07:37 37.1 76 18 164/75 (104) 92 Room Air 80 145/73 (97) 82 124/72 (89) 09/21/16 00:28 36.5 79 16 146/75 (98) 92 Room Air 09/21/16 00:00 Room Air 09/20/16 17:56 36.8 86 18 161/75 Room Air 09/20/16 17:27 36.8 86 18 161/75 (103) 93 Room Air 09/20/16 17:00 36.9 65 17 151/68 96 09/20/16 16:30 65 96 09/20/16 16:01 151/68 09/20/16 16:00 66 17 09/20/16 15:56 139/57 09/20/16 15:30 65 14 09/20/16 15:00 66 19 Physical Exam General Appearance: WD/WN, no apparent distress Eyes: sclerae normal Neck: supple, no JVD, trachea midline Respiratory/Chest: lungs clear, normal breath sounds, no respiratory distress, no accessory muscle use Cardiovascular: regular rate, rhythm, no gallop, no murmur Abdomen: normal bowel sounds, non tender, soft Extremities: no pedal edema, no calf tenderness Neurologic/Psychiatric: no motor/sensory deficits, alert Skin: normal color, warm/dry Laboratory Results Last 24 Hours Test 09/20/16 14:45 09/20/16 18:02 09/20/16 20:19 09/21/16 07:25 Urine Color YELLOW Urine Appearance CLEAR Urine pH 6.5 Urine Specific Mcbain 1.010 Urine Protein NEG Urine Glucose (UA) NEG Urine Ketones NEG Urine Occult Blood NEG Urine Nitrite NEG Urine Bilirubin NEG Urine Urobilinogen NEG Urine Leukocyte Esterase NEG Bedside Glucose 84 mg/dl 143 mg/dl White Blood Count 6.11 K/uL Red Blood Count 4.36 M/uL Hemoglobin 11.2 g/dL Hematocrit 35.6 % Mean Corpuscular Volume 81.7 fL Mean Corpuscular Hemoglobin 25.7 pg Mean Corpuscular Hemoglobin Concent 31.5 g/dl Platelet Count 161 K/uL Mean Platelet Volume 10.2 fL Neutrophils (%) (Auto) 61.2 % Lymphocytes (%) (Auto) 29.6 % Monocytes (%) (Auto) 7.0 % Eosinophils (%) (Auto) 1.8 % Basophils (%) (Auto) 0.2 % Neutrophils # (Auto) 3.74 K/uL Lymphocytes # (Auto) 1.81 K/uL Monocytes # (Auto) 0.43 K/uL Eosinophils # (Auto) 0.11 K/uL Basophils # (Auto) 0.01 K/uL RDW Standard Deviation 47.6 fL RDW Coefficient of Variation 15.9 % Immature Granulocyte % (Auto) 0.2 % Immature Granulocyte # (Auto) 0.01 K/uL Sodium Level 143 mmol/L Potassium Level 4.2 mmol/L Chloride Level 107 mmol/L Carbon Dioxide Level 30 mmol/L Anion Gap 6.0 mmol/L Blood Urea Nitrogen 13 mg/dl Creatinine 0.86 mg/dl Est Creatinine Clear Calc Drug Dose 49.7 ml/min Estimated GFR () 73.9 Estimated GFR (Non- 63.8 BUN/Creatinine Ratio 15.2 Random Glucose 160 mg/dl Calcium Level 8.5 mg/dl Phosphorus Level 2.4 mg/dl Magnesium Level 2.2 mg/dl Total Bilirubin 0.5 mg/dl Aspartate Amino Transf (AST/SGOT) 13 U/L Alanine Aminotransferase (ALT/SGPT) 21 U/L Alkaline Phosphatase 139 U/L Total Protein 7.0 gm/dl Albumin 3.2 gm/dl Globulin 3.8 gm/dl Albumin/Globulin Ratio 0.8 Test 09/21/16 07:41 09/21/16 11:20 Bedside Glucose 159 mg/dl 224 mg/dl Assessment and Plan 81 y/o female with a history of orthostatic hypotension, h/o BPPV, CAD, h/o GA, h/o complete heart block s/p pacemaker placement, HTN, HLD, chronic diastolic CHF, anemia, DM II w/neuropathy, anxiety and depression, dementia with Lewy bodies, chronic constipation, and GERD who presented to the ED on 09/20 with dizziness, lightheadedness and hypotension. Patient with positive orthostasis. Pt had been prescribed midodrine but not taking it. CXR shows no acute disease. KUB shows increased fecal load and fecal stasis. Labs grossly unremarkable. Pt received 500 cc NSS bolus and IVF in ED. Orthostatic Hypotension/BPPV: IMPROVING - Long discussion with patient, , and pharmacist from [facility] which reveals discrepencies with medications and Rx fills - All anti-hypertensives will be held, Midodrine with be D/C'd, and Florinef will be instituted -- Given age and orthostasis a mildly higher BP may be reasonable to prevent drastic decreases in BP with position changes L Arm and L Leg Numbness/Tingling: INTERMITTENT - L arm is resolved per patient and L leg is intermittent and starting while I was in the room today -- No motor dysfunction appreciated - low suspicion for TIA/CVA - does report she has underlying neuropathy as well as chronic back issues Chronic Constipation: - Miralax and Colace daily - reports this normally helps - Amitiza - non-formulary and patient can use own medication if brought in CAD S/P GA: - Previously on Coumadin for chronic atrial thrombus - Plavix 75 mg daily - Will stop Imdur due to above HLD: - Atorvastatin 40 mg PO qd Chronic Diastolic CHF without Exacerbation: - Lasix on hold Anemia of Chronic Disease: STABLE - Hgb baseline - continue to monitor T2DM with Peripheral Neuropathy: HbA1c 8.6 - Hold home regimen and continue SSI - Lyrica 50 mg PO TID Anxiety/Depression/Lewy Body Dementia: - Zoloft 25 mg daily - Zyprexa 10 mg daily DVT Prophylaxis: Lovenox 40 mg SC daily Code Status: FULL RESUSCITATION STATUS Disposition: PT recommendign inpatient rehab Continued [facility] stay due to: ambulation difficulties Discharge planning: uncertain
[2016-09-21] MEDS: ACETAMINOPHEN 325 MG TAB PO PRN (16:07)
[2016-09-21] MEDS: ATORVASTATIN 40 MG TAB PO SCH (20:41)
[2016-09-21] MEDS: ENOXAPARIN 40 MG/0.4 ML SYR SC SCH (20:41)
[2016-09-21] MEDS: DOCUSATE SODIUM 100 MG CAP PO SCH (20:42)
[2016-09-21] MEDS: OLANZAPINE 10 MG TAB PO SCH (20:42)
[2016-09-22 00:31] VITALS: BP 147/57; PULSE 76; TEMP 36.9; O2SAT 95
[2016-09-22 07:30] VITALS: BP 166/72; PULSE 73; TEMP 37.1; O2SAT 94
[2016-09-22] MEDS: SERTRALINE HCL 50 MG TAB PO SCH (08:05)
[2016-09-22] MEDS: CLOPIDOGREL BISULFATE 75 MG TAB PO SCH (08:05)
[2016-09-22] MEDS: FLUDROCORTISONE ACETATE 0.1 MG TAB PO SCH (08:05)
[2016-09-22] MEDS: PREGABALIN 50 MG CAP PO SCH ×3 (08:05→21:16)
[2016-09-22] MEDS: PANTOprazole SOD 40 MG TAB PO SCH (08:05)
[2016-09-22] MEDS: POLYETHYLENE (MIRALAX) 17 GM PACK PO SCH (08:06)
[2016-09-22] MEDS: INSULIN ASPART 100 UNITS/ML 3 ML PEN SC SCH ×4 (08:08→21:00)
--- NOTE | 2016-09-22 14:19 | Hospitalist Progress Note ---
Hospitalist Progress Note Date of Service Sep 22, 2016. Subjective Pt evaluation today including: conversation w/ patient, physical exam, chart review, lab review, review of studies, review of inpatient medication list Patient seen and evaluated. Reports feeling improvement today. Reports intermittent L arm numbness/tingling that was relieved with ice-pack per patient Discussed blood pressure medications and plan and PT recommendations for rehab. Patient is in agreement for this. Would like to continue to monitor throughout the day and discuss rehab options. Verbalizes no other issues or complaints Reports that she did move her bowels today. Constitutional: No fever, No chills Respiratory: No shortness of breath Cardiovascular: No chest pain Abdomen: No pain, No nausea, No vomiting Female : No dysuria Neurologic: + numbness/tingling (intermittent of L arm and L leg) Skin: No rash Medications Current Inpatient Medications Medications (Trade) Dose Ordered Sig/Holden Route Start Time Stop Time Status Last Admin Dose Admin Enoxaparin Sodium (Lovenox Inj) 40 mg Q24H SC 09/20/16 22:00 10/20/16 21:59 09/21/16 20:41 40 MG Acetaminophen (Tylenol Tab) 650 mg Q4H PRN PO 09/20/16 15:45 10/20/16 15:44 09/21/16 16:07 650 MG Al Hydrox/Mg Hydrox/Simethicone (Maalox Max Susp) 15 ml Q4H PRN PO 09/20/16 15:45 10/20/16 15:44 Magnesium Hydroxide (Milk Of Magnesia Susp) 30 ml Q12H PRN PO 09/20/16 15:45 10/20/16 15:44 Ondansetron HCl (Zofran Inj) 4 mg Q6H PRN IV 09/20/16 15:45 10/20/16 15:44 Polyethylene (Miralax Powder Packet) 17 gm DAILY PRN PO 09/20/16 16:15 10/20/16 16:14 Atorvastatin Calcium (Lipitor Tab) 40 mg HS PO 09/20/16 21:00 10/20/16 20:59 09/21/16 20:41 40 MG Clopidogrel Bisulfate (plAVix TAB) 75 mg DAILY PO 09/21/16 09:00 10/21/16 08:59 09/22/16 08:05 75 MG Docusate Sodium (coLACE CAP) 200 mg HS PO 09/20/16 21:00 10/20/16 20:59 09/21/16 20:42 200 MG Olanzapine (Zyprexa Tab) 10 mg HS PO 09/20/16 21:00 10/20/16 20:59 09/21/16 20:42 10 MG Pantoprazole Sodium (Protonix Tab) 40 mg DAILY PO 09/21/16 09:00 10/21/16 08:59 09/22/16 08:05 40 MG Polyethylene (Miralax Powder Packet) 17 gm DAILY PO 09/21/16 09:00 10/21/16 08:59 09/22/16 08:06 17 GM Pregabalin (Lyrica Cap) 50 mg TID PO 09/20/16 21:00 10/20/16 20:59 09/22/16 13:08 50 MG Sertraline HCl (Zoloft Tab) 25 mg DAILY PO 09/21/16 09:00 10/21/16 08:59 09/22/16 08:05 25 MG Miscellaneous (Iv Fluids Completed) 1 ea PRN PRN N/A 09/20/16 15:45 09/20/17 15:44 Miscellaneous (Iv Fluids Completed) 1 ea PRN PRN N/A 09/20/16 16:15 09/20/17 16:14 Insulin Aspart (novoLOG ASPART) SLIDING SCALE If C... ACHS SC 09/20/16 21:00 10/20/16 20:59 09/22/16 12:02 4 UNITS Glucose (Glucose 40% Gel) 15-30 GRAMS 15 GRAMS... UD PRN PO 09/20/16 16:15 10/20/16 16:14 Glucose (Glucose Chew Tab) 4-8 Tablets 4 Tabl... UD PRN PO 09/20/16 16:15 10/20/16 16:14 Dextrose (Dextrose 50% 50ML Syringe) 25-50ML OF 50% DW IV FOR... UD PRN IV 09/20/16 16:15 10/20/16 16:14 Glucagon (Glucagon Inj) 1 mg UD PRN SQ 09/20/16 16:15 10/20/16 16:14 Fludrocortisone Acetate (Florinef Tab) 0.1 mg QAM PO 09/22/16 09:00 10/22/16 08:59 09/22/16 08:05 0.1 MG Lubiprostone (Amitiza) 24 mcg DAILY PO 09/23/16 09:00 10/23/16 08:59 Objective Vital Signs Date Time Temp Pulse Resp B/P (MAP) Pulse Ox O2 Delivery O2 Flow Rate FiO2 09/22/16 09:15 Room Air 09/22/16 07:30 37.1 73 18 166/72 (103) 94 Room Air 09/22/16 00:31 36.9 76 18 147/57 (87) 95 Room Air 09/22/16 00:00 Room Air 09/21/16 16:27 Room Air 09/21/16 14:36 36.9 71 18 150/71 (97) 94 Room Air Physical Exam General Appearance: WD/WN, no apparent distress Eyes: sclerae normal ENT: hearing grossly normal Neck: supple, no JVD, trachea midline Respiratory/Chest: lungs clear, normal breath sounds, no respiratory distress, no accessory muscle use Cardiovascular: regular rate, rhythm, no gallop, no murmur Abdomen: normal bowel sounds, non tender, soft Extremities: no calf tenderness Neurologic/Psychiatric: alert Skin: normal color, warm/dry Laboratory Results Last 24 Hours Test 09/21/16 16:22 09/21/16 20:30 09/22/16 07:50 09/22/16 11:06 Bedside Glucose 213 mg/dl 181 mg/dl 209 mg/dl 271 mg/dl Assessment and Plan 81 y/o female with a history of orthostatic hypotension, h/o BPPV, CAD, h/o PA, h/o complete heart block s/p pacemaker placement, HTN, HLD, chronic diastolic CHF, anemia, DM II w/neuropathy, anxiety and depression, dementia with Lewy bodies, chronic constipation, and GERD who presented to the ED on 09/20 with dizziness, lightheadedness and hypotension. Patient with positive orthostasis. Pt had been prescribed midodrine but not taking it. CXR shows no acute disease. KUB shows increased fecal load and fecal stasis. Labs grossly unremarkable. Pt received 500 cc NSS bolus and IVF in ED. Orthostatic Hypotension/BPPV: IMPROVING - All anti-hypertensives will be held, Midodrine with be D/C'd, and Florinef will be instituted -- Given age and orthostasis a mildly higher BP may be reasonable to prevent drastic decreases in BP with position changes - goal SBP 160 L Arm and L Leg Numbness/Tingling: INTERMITTENT - Intermittent complaints of numbness/tingling/pain - inconsistent and unlikely CVA/TIA related - does report she has underlying neuropathy as well as chronic back issues Chronic Constipation: - Miralax and Colace daily - reports this normally helps - Amitiza - non-formulary and patient can use own medication CAD S/P PA: - Previously on Coumadin for chronic atrial thrombus - Plavix 75 mg daily - Will stop Imdur due to above HLD: - Atorvastatin 40 mg PO qd Chronic Diastolic CHF without Exacerbation: - Lasix on hold Anemia of Chronic Disease: STABLE - Hgb baseline - continue to monitor T2DM with Peripheral Neuropathy: HbA1c 8.6 - Hold home regimen and continue SSI - Lyrica 50 mg PO TID Anxiety/Depression/Lewy Body Dementia: - Zoloft 25 mg daily - Zyprexa 10 mg daily DVT Prophylaxis: Lovenox 40 mg SC daily Code Status: FULL RESUSCITATION STATUS Disposition: Plan to monitor today and plan to D/C off all antihypertensives and with ongoing evaluation can adjust accordingly - SBP goal 160 given age and H/O falls - In agreement to inpatient rehab per recommendations from PT - will await referrals - likely here through the weekend Continued [facility] stay due to: ambulation difficulties Discharge planning: [facility] facility
[2016-09-22 14:59] VITALS: BP 157/73; PULSE 66; TEMP 36.9; O2SAT 94
[2016-09-22 16:13] VITALS: BP_SYST 113; BP_SYST 127; BP_SYST 133; BP_DIAS 70; BP_DIAS 76; PULSE 65; PULSE 70; TEMP 36.8; O2SAT 94
[2016-09-22] MEDS: ACETAMINOPHEN 325 MG TAB PO PRN (16:45)
[2016-09-22] MEDS: ATORVASTATIN 40 MG TAB PO SCH (21:14)
[2016-09-22] MEDS: OLANZAPINE 10 MG TAB PO SCH (21:15)
[2016-09-22] MEDS: DOCUSATE SODIUM 100 MG CAP PO SCH (21:15)
[2016-09-22] MEDS: ENOXAPARIN 40 MG/0.4 ML SYR SC SCH (21:17)
[2016-09-22 23:20] VITALS: BP_SYST 109; BP_SYST 122; BP_SYST 145; BP_DIAS 73; BP_DIAS 75; BP_DIAS 77; PULSE 70; TEMP 36.8; O2SAT 94
[2016-09-23 07:51] VITALS: BP 163/75; PULSE 73; TEMP 36.8; O2SAT 93
[2016-09-23 08:00] VITALS: O2SAT 93
[2016-09-23] MEDS: CLOPIDOGREL BISULFATE 75 MG TAB PO SCH (08:21)
[2016-09-23] MEDS: SERTRALINE HCL 50 MG TAB PO SCH (08:21)
[2016-09-23] MEDS: PANTOprazole SOD 40 MG TAB PO SCH (08:21)
[2016-09-23] MEDS: POLYETHYLENE (MIRALAX) 17 GM PACK PO SCH (08:22)
[2016-09-23] MEDS: PREGABALIN 50 MG CAP PO SCH ×2 (08:22→13:32)
[2016-09-23] MEDS: FLUDROCORTISONE ACETATE 0.1 MG TAB PO SCH (08:23)
[2016-09-23] MEDS: INSULIN ASPART 100 UNITS/ML 3 ML PEN SC SCH ×2 (08:32→12:40)
[2016-09-23] MEDS ORDERED: LUBIPROSTONE 8 MCG CAP PO SCH (09:00)
[2016-09-23 13:39] VITALS: BP 163/75; PULSE 73; TEMP 36.8; O2SAT 93
[2016-09-23] MEDS ORDERED: FLR1 PO (14:10)
--- NOTE | 2016-09-23 14:13 | Discharge Instructions ---
Discharge Instructions Date of Service Sep 23, 2016. Admission Reason for Admission: Orthostatic Hypotension, Weakness Discharge Discharge Diagnosis / Problem: Orthostatic hypotension Discharge Goals Goal(s): Improve function, Improve disease control Activity Recommendations Activity Level: Assistance Required Therapies: Physical Therapy, Occupational Therapy Lifting Limitations: none Exercise/Sports Limitations: as tolerated . Additional Information Patient informed of condition: Yes Advance Directives: No DNR: No Level of Care: Acute Rehab Communicable Disease: No Prognosis: Improving Oxygen at (LPM): none [place] Catheter: No Instructions / Follow-Up Instructions / Follow-Up Medications: - FLORINEF: started during admission, tolerating well, started for orthostatic changes, can increase to 0.2mg daily in one week if still with hypotensive episodes note that all the patient's anti-hypertensives have been stopped and her blood pressure has not been higher than 150-160 systolic which is okay for her age group midodrine was also stopped because she really wasn't taking at home as prescribed lasix is stopped but note that you can give as needed in the future for any swelling FOLLOW UP - physician at [facility] this week - PCP in one week after d/c from [facility] Diet Patient's current hospital diet: Diabetes Type 2 Diet, AHA Diet (Heart Healthy) Discharge Diet Recommended Diet: AHA Diet (Heart Healthy), Diabetes Type 2 Diet Pending Studies Studies pending at discharge: no Physician Orders On Transfer POLST Discussion: Not Applicable Laboratory Results Hemoglobin A1c Test 07/14/16 07:06 Range/Units Estimated Average Glucose 200 mg/dl Hemoglobin A1c 8.6 H 4.5-5.6 % Medical Emergencies . Who to Call and When: Medical Emergencies: If at any time you feel your situation is an emergency, please call 911 immediately. . Non-Emergent Contact Non-Emergency issues call your: Primary Care Provider Call Non-Emergent contact if: you have any medication questions . . "Provider Documentation" section prepared by Gagandeep Negron. . Core Measure Problem Core Measures: None [place] Drug Monitoring Program Search Results: no issues identified
--- NOTE | 2016-09-24 08:30 | Discharge Summary ---
Discharge Summary Date of Service Sep 23, 2016. Discharge Summary Admission Date: Sep 22, 2016 at 09:25 Discharge Date: Sep 23, 2016 Discharge Disposition: [facility] facility Principal Diagnosis: Orthostatic hypotension causing dizziness, ambulatory dysfunction Problems/Secondary Diagnoses: Hypertension Intermittent left arm tingling/numbness Constipation Procedures: none Consultations: none Medication Reconciliation New Medications: Fludrocortisone Acetate (Fludrocortisone Acetate) 0.1 Mg Tab 0.1 MG PO QAM, #30 TAB 3 Refills Continued Medications: Atorvastatin (Lipitor) 40 Mg Tab 40 MG PO HS, TAB Clopidogrel Bisulfate (Clopidogrel) 75 Mg Tab 75 MG PO DAILY Docusate Sodium (Docusate Sodium) 100 Mg Cap 200 MG PO HS for 30 Days, CAP Insulin Isophan/Regular (Humulin 70/30) Susp 34 UNIT SC QAM, VIAL Insulin Isophan/Regular (Humulin 70/30) Susp 14 UNITS SC QPM, VIAL Lubiprostone (Amitiza) 8 Mcg Cap 24 MCG PO DAILY Meclizine HCl (Meclizine HCl) 12.5 Mg Tab 12.5 MG PO Q6 PRN for dizziness for 10 Days, #40 TAB Olanzapine (Zyprexa) 10 Mg Tab 10 MG PO HS, TAB Pantoprazole (Protonix) 40 Mg Tab 20 MG PO DAILY, TAB Polyethylene (Miralax) 17 Gm Pow 17 GM PO DAILY for 30 Days Pregabalin (Lyrica) 50 Mg Cap 50 MG PO TID, CAP Sertraline (Zoloft) 50 Mg Tab 25 MG PO DAILY, TAB Discontinued Medications: Furosemide (Lasix) 40 Mg Tab 20 MG PO Q2D, TAB Isosorbide Mononitrate Ext Rel (Imdur Ext Rel) 30 Mg Ertab 30 MG PO QAM, TAB Metoprolol Succinate (Toprol Xl) 50 Mg Tab 25 MG PO DAILY, #30 TAB Midodrine Hcl (Midodrine Hcl) 5 Mg Tab 5 MG PO BID Discharge Exam Patient feeling better, ambulating easier with less dizziness, using walker. She felt so well that she asked if she had to go to rehab. Discussed with patient and her at the bedside that we made several medication changes and still not sure how she is going to respond. Would benefit from being in a rehab facility to have her blood pressure closely monitored for the next week and to see how she does with ambulation. Review of Systems: Constitutional: No fever, No chills, No sweats, No weight loss, No weakness , No fatigue, No problem reported Eyes: No worsening of vision, No eye pain, No redness, No discharge, No diplopia, No problem reported ENT: No hearing loss, No unusual epistaxis, No nasal symptoms, No sore throat, No tinnitus, No dental problems, No trouble swallowing, No problem reported Respiratory: No cough, No sputum, No wheezing, No shortness of breath, No dyspnea on exertion, No dyspnea at rest, No hemoptysis, No problem reported Cardiovascular: No chest pain, No orthopnea, No PND, No edema, No claudication, No palpitations, No problem reported Abdomen: + constipation (moved bowels during admission), No pain, No nausea , No vomiting, No diarrhea, No GI bleeding, No problem reported Musculoskeletal: No joint pain, No muscle pain, No swelling, No calf pain, No problem reported Genitourinary - Female: No dysuria, No urinary frequency, No urinary urgency , No urinary incontinence, No urinary retention, No hematuria Neurologic: + numbness/tingling (intermittent left arm and left leg, stable on day of discharge), + balance problems (improving slowly), No memory loss, No paralysis, No weakness, No vertigo, No problem reported Psychiatric: No depression symptoms, No anhedonism, No anxiety, No insomnia , No substance abuse, No problem reported Endocrine: No fatigue, No excessive thirst, No excessive urination, No problem reported Hematologic / Lymphatic: No abnormal bleeding/bruising, No clotting problems , No swollen lymph nodes, No night sweats, No problem reported Integumentary: No rash, No itch, No new/changing skin lesions, No color change, No bleeding, No problem reported Physical Exam: General Appearance: WD/WN, no apparent distress Eyes: normal inspection, EOMI, sclerae normal ENT: normal ENT inspection, hearing grossly normal, pharynx normal Neck: supple, no adenopathy, no JVD, trachea midline Respiratory/Chest: chest non-tender, lungs clear, normal breath sounds, no respiratory distress, no accessory muscle use Cardiovascular: regular rate, rhythm, no edema, no gallop, no JVD, no murmur , normal peripheral pulses Abdomen / GI: normal bowel sounds, non tender, soft Extremities: normal inspection, no calf tenderness, normal capillary refill , no pedal edema, normal range of motion, pelvis stable Neurologic/Psychiatric: 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 Patient with positive orthostasis. Pt had been prescribed midodrine but not taking it. CXR shows no acute disease. KUB shows increased fecal load and fecal stasis. Labs grossly unremarkable. Pt received 500 cc NSS bolus and IVF in ED. Orthostatic Hypotension/BPPV: improved, from sitting to standing BP dropped less than 20mmHg - All anti-hypertensives will be held, Midodrine with be D/C'd, and Florinef will be instituted -- continue Florinef 0.1mg qAM, if still with orthostasis after a week, could increase dose to 0.2mg -- consider compression stockings to keep blood from pooling in lower legs -- again, all anti-hypertensives and Lasix stopped, BP has been 150-160 systolic, acceptable for 81 yo old L Arm and L Leg Numbness/Tingling: INTERMITTENT - Intermittent complaints of numbness/tingling/pain - inconsistent and unlikely CVA/TIA related - does report she has underlying neuropathy as well as chronic back issues Chronic Constipation: - Miralax and Colace daily - reports this normally helps - Amitiza - non-formulary and patient can use own medication - moved bowels on 09/22 CAD S/P HI: - Previously on Coumadin for chronic atrial thrombus - Plavix 75 mg daily - Will stop Imdur due to above HLD: - Atorvastatin 40 mg PO qd Chronic Diastolic CHF without Exacerbation: - Lasix on hold, continue to hold on d/c, monitor for any signs of volume overload Anemia of Chronic Disease: STABLE - Hgb baseline - continue to monitor T2DM with Peripheral Neuropathy: HbA1c 8.6 - Hold home regimen and continue SSI - Lyrica 50 mg PO TID Anxiety/Depression/Lewy Body Dementia: - Zoloft 25 mg daily - Zyprexa 10 mg daily DVT Prophylaxis: Lovenox 40 mg SC daily Code Status: FULL RESUSCITATION STATUS Total Time Spent: Greater than 30 minutes This includes examination of the patient, discharge planning, medication reconciliation, and communication with other providers. Discharge Instructions Please refer to the electronic Patient Visit Report (Discharge Instructions) for additional information. Follow-Up Dr. Baum in one week Additional Copies To Poli Baum M.D.
== END 2016-09-23 15:39 | DRG 312 ==
LOC: C.EDB 11:26 → ENRESERV 15:51 → CANRESERV 15:51 → C.MS2W 16:02 → EDBEDREQSVC 16:18 → CANBEDREQ 16:19 → ENRESERV 16:34 → OBSVTOIN 09-22 09:25
PROVIDERS: ADMIT Internal Medicine; ATTEND Internal Medicine
DX: I95.1 Orthostatic hypotension (principal); I50.32 Chronic diastolic (congestive) heart failure; R20.2 Paresthesia of skin; R20.0 Anesthesia of skin; K59.09 Other constipation; E11.42 Type 2 diabetes mellitus with diabetic polyneuropathy; I25.2 Old myocardial infarction; I25.10 Atherosclerotic heart disease of native coronary artery without angina pectoris; I11.9 Hypertensive heart disease without heart failure; H81.10 Benign paroxysmal vertigo, unspecified ear; G31.83 Neurocognitive disorder with Lewy bodies; F02.80 Dementia in other diseases classified elsewhere, unspecified severity, without behavioral disturbance, psychotic disturbance, mood disturbance, and anxiety; F41.9 Anxiety disorder, unspecified; F32.9 Major depressive disorder, single episode, unspecified; D64.9 Anemia, unspecified; E66.9 Obesity, unspecified; Z51.81 Encounter for therapeutic drug level monitoring; Z79.899 Other long term (current) drug therapy; Z79.4 Long term (current) use of insulin; Z86.73 Personal history of transient ischemic attack (TIA), and cerebral infarction without residual deficits; Z95.0 Presence of cardiac pacemaker; Z82.49 Family history of ischemic heart disease and other diseases of the circulatory system; Z68.35 Body mass index [BMI] 35.0-35.9, adult; Z91.81 History of falling

== ENCOUNTER 2016-11-16 18:23 | Inpatient (IN) | payer BC, OTHER ==
[~2016-11-16] VITALS: Ht 152.4 cm; Wt 81.5 kg
[~2016-11-16 18:23] MED LIST changes: -ACET325T96 PO; +AMT/8 PO; -CMD3 PO; +FLR1 PO; -GLYB5TAB8 PO; -ISOS30TA3 PO; -LCTL45 PO; -LISI-729 PO; -LSX40 PO; +MECL1TAB40 PO; -METO1TAB66 PO; -NVLGIPEN SC; +OLAN10TA11 PO; -OLAN1TAB64 PO; +PLV75 PO; -SERT-234 PO; +SERT50TA PO; -TRAZ100T29 PO; -WARF4TAB8 PO
--- NOTE | 2016-11-16 20:29 | EMERGENCY ROOM VISIT NOTE ---
History First contact with patient: 19:22 Chief Complaint: HYPERTENSION Stated Complaint: HIGH BLOOD PRESSURE THEN DROPS LOW History of Present Illness The patient is a 81 year old female with a significant past medical history of orthostatic hypotension, coronary artery disease, complete heart block status post pacemaker placement, hypertension, CHF, diabetes who presents to the Emergency Room with complaints of high blood pressure. Per the patient's , her blood pressure had been running very high in the last few days. She was recently admitted at [facility] with orthostatic hypotension when all her blood pressure medications were stopped and she was started on Florinef which she had been using until a few days ago when her blood pressure started to rise. She then stopped using florinef and restarted 2.5 mg of lisinopril. She presented today to the ER with elevated blood pressure accompanied with headache and blurriness of vision and dizziness. Denies any chest pain, shortness of breath, palpitations. Denies any nausea or vomiting, weakness but has intermittent numbness and tingling of her extremities. Denies any fevers/ chills but complains of constipation. She was recommended to use MiraLAX for constipation during her last admission but she stopped it recently due to loose stools. Review of Systems See HPI for pertinent positives & negatives. A total of 10 systems reviewed and were otherwise negative. Past Medical/Surgical History Medical Problems: (1) blood clot left ventricle (2) Diabetes (3) Elevated LFTs (4) ESBL (extended spectrum beta-lactamase) producing bacteria infection (5) Exertional shortness of breath (6) HTN (hypertension) (7) Hypoglycemia (8) Orthostatic hypotension (9) Pacemaker (10) Stroke Family History Cancer Heart disease Hypertension Lung disease Social History Smoking Status: Never Smoker Alcohol Use: none Drug Use: none Marital Status: Housing Status: lives with family Occupation Status: retired Current/Historical Medications Scheduled Atorvastatin (Lipitor), 40 MG PO HS Clonidine Hcl (Catapres), 0.2 MG PO QAM Clopidogrel Bisulfate (Clopidogrel), 75 MG PO DAILY Docusate Sodium (Docusate Sodium), 200 MG PO HS Insulin Isophan/Regular (Humulin 70/30), 38 UNIT SC QAM Insulin Isophan/Regular (Humulin 70/30), 18 UNITS SC QPM Lactobacillus Rhamnosus (GG) (Culturelle), 1 CAP PO DAILY Lisinopril (Lisinopril), 5 MG PO DAILY Loratadine (Claritin), 10 MG PO DAILY Lubiprostone (Amitiza), 24 MCG PO DAILY Olanzapine (Zyprexa Zydis Odt), 10 MG PO HS Pantoprazole (Protonix), 20 MG PO DAILY Polyethylene Glycol 3350 (Miralax), 17 GM PO DAILY Pregabalin (Lyrica), 50 MG PO TID Sertraline (Zoloft), 25 MG PO DAILY Zolpidem Tartrate (Ambien), 5 MG PO HS Physical Exam Vital Signs Date Time Temp Pulse Resp B/P (MAP) Pulse Ox O2 Delivery O2 Flow Rate FiO2 11/16/16 22:06 190/78 11/16/16 21:53 74 16 11/16/16 21:46 183/86 11/16/16 21:31 179/101 11/16/16 21:23 75 22 11/16/16 21:16 184/93 11/16/16 21:11 203/80 11/16/16 21:01 156/74 11/16/16 20:53 82 20 11/16/16 20:46 207/101 11/16/16 20:45 79 18 185/87 98 Room Air 11/16/16 20:45 79 185/97 81 204/77 91 140/85 11/16/16 20:39 140/85 11/16/16 20:38 204/77 11/16/16 20:37 185/97 11/16/16 20:31 178/102 11/16/16 20:23 78 19 11/16/16 20:16 173/95 11/16/16 20:15 80 18 201/117 98 Room Air 11/16/16 20:01 201/117 11/16/16 19:53 84 20 11/16/16 19:46 203/89 11/16/16 19:40 98 Room Air 11/16/16 19:36 203/108 11/16/16 19:29 89 11/16/16 19:26 200/81 11/16/16 18:52 37.5 82 19 169/78 95 Room Air Physical Exam GENERAL: Patient is in no acute distress. HEENT: No acute trauma, normocephalic atraumatic, mucous membranes moist, no nasal congestion, no scleral icterus. NECK: No stridor, no adenopathy, no meningismus, trachea is midline. LUNGS: Clear to auscultation bilaterally, no wheeze, no rhonchi, breath sounds equal. HEART: Without murmurs gallops or rubs, regular rate and rhythm. ABDOMEN: Soft, nontender, bowel sounds positive, no hernias, no peritonitis. EXTREMITIES: No cyanosis or edema, full range of motion of all the joints without pain or difficulty, no signs for acute trauma. NEUROLOGIC: Oriented x 3, no acute motor or sensory deficits, no focal weakness. SKIN: No rash, no jaundice, no diaphoresis. Medical Decision & Procedures Laboratory Results 11/16/16 19:36 Red Blood Count 4.42, Mean Corpuscular Volume 81.0, Mean Corpuscular Hemoglobin 25.3, Mean Corpuscular Hemoglobin Concent 31.3, Mean Platelet Volume 10.3, Neutrophils (%) (Auto) 60.0, Lymphocytes (%) (Auto) 29.2, Monocytes (%) (Auto) 8.5, Eosinophils (%) (Auto) 2.1, Basophils (%) (Auto) 0.1, Neutrophils # (Auto) 5.30, Lymphocytes # (Auto) 2.58, Monocytes # (Auto) 0.75, Eosinophils # (Auto) 0.19, Basophils # (Auto) 0.01 11/16/16 19:36 Test 11/16/16 19:34 11/16/16 19:36 White Blood Count 8.84 K/uL (4.8-10.8) Red Blood Count 4.42 M/uL (4.2-5.4) Hemoglobin 11.2 g/dL (12.0-16.0) Hematocrit 35.8 % (37-47) Mean Corpuscular Volume 81.0 fL (80-100) Mean Corpuscular Hemoglobin 25.3 pg (25-34) Mean Corpuscular Hemoglobin Concent 31.3 g/dl (32-36) Platelet Count 167 K/uL (130-400) Mean Platelet Volume 10.3 fL (7.4-10.4) Neutrophils (%) (Auto) 60.0 % Lymphocytes (%) (Auto) 29.2 % Monocytes (%) (Auto) 8.5 % Eosinophils (%) (Auto) 2.1 % Basophils (%) (Auto) 0.1 % Neutrophils # (Auto) 5.30 K/uL (1.4-6.5) Lymphocytes # (Auto) 2.58 K/uL (1.2-3.4) Monocytes # (Auto) 0.75 K/uL (0.11-0.59) Eosinophils # (Auto) 0.19 K/uL (0-0.5) Basophils # (Auto) 0.01 K/uL (0-0.2) RDW Standard Deviation 45.4 fL (36.4-46.3) RDW Coefficient of Variation 15.4 % (11.5-14.5) Immature Granulocyte % (Auto) 0.1 % Immature Granulocyte # (Auto) 0.01 K/uL (0.00-0.02) Anion Gap 6.0 mmol/L (3-11) Est Creatinine Clear Calc Drug Dose 52.6 ml/min Estimated GFR () 79.5 Estimated GFR (Non- 68.6 BUN/Creatinine Ratio 14.4 (10-20) Calcium Level 8.8 mg/dl (8.5-10.1) Total Bilirubin 0.4 mg/dl (0.2-1) Aspartate Amino Transf (AST/SGOT) 251 U/L (15-37) Alanine Aminotransferase (ALT/SGPT) 433 U/L (12-78) Alkaline Phosphatase 273 U/L (45-117) Total Protein 7.5 gm/dl (6.4-8.2) Albumin 3.2 gm/dl (3.4-5.0) Globulin 4.3 gm/dl (2.5-4.0) Albumin/Globulin Ratio 0.8 (0.9-2) Medications Administered Medications (Trade) Dose Ordered Sig/Holden Route Start Time Stop Time Status Last Admin Dose Admin Labetalol HCl (Normodyne IV) 10 mg NOW ONCE IV 11/16/16 21:15 11/16/16 21:16 DC 11/16/16 21:10 10 MG Medical Decision Prior records/ancillary studies reviewed regarding the history above. Triage Nursing notes reviewed. Additional history obtained from the family. The patient's history was concerning for hypertension Differential diagnosis: Etiologies such as benign hypertension, hypertensive emergency, cardiovascular pathology, pheochromocytoma, electrolyte abnormality, renal disease, endorgan damage, as well as others were entertained. Physical examination: As above. No signs of end organ damage. ER treatment provided: CBC, CMP, EKG, orthostatic vitals were ordered. She was given a 10 mg of IV labetalol for hypertension . Diagnostic interpretation by me: The electrocardiogram was negative for pathologic change. The labs revealed elevated liver enzymes and low blood sugar. Consultation: A consultation was placed with [facility] hospitalist. The case was discussed and diagnostics were reviewed. The patient was evaluated in the ER for further treatment. This appears to be consistent with orthostatic hypotension. The patient presented with hypertension and hypoglycemia. She was recently admitted at [facility] for orthostatic hypotension and was recommended to stop all her blood pressure medications and started on Florinef . She was doing fine until 2 days ago when her blood pressure started to rise. She stated that her blood pressure was running over 200/100 and she complained of headaches and blurriness of vision with dizziness. In the ER, she was very diaphoretic and was found to be hyperglycemic with a blood sugar of 49. She was immediately treated with crackers and juice and a repeat check revealed an improved blood sugar. She was given 10 mg of IV labetalol for hypertension. Orthostatic vitals were performed and was found to be positive. She was also noted to have elevated liver enzymes and the liver ultrasound was ordered. The case was discussed with the hospitalist and she will be admitted for further evaluation. Impression Primary Impression: Orthostatic hypotension Additional Impression: Hypoglycemia Departure Information Referrals No Doctor, Assigned (PCP) Patient Instructions My [facility] Resident Tracking Resident Involvement: Resident Care Provided Care Provided: Adult ED Problem Qualifiers
[2016-11-16 20:30] LABS: BASO % 0.1 %; BASO ABS # 0.01 K/uL (0-0.2); COMPLETE YES; EOS % 2.1 %; HEMATOCRIT 35.8 % (37-47); IG% 0.1 %; LYMPH % 29.2 %; LYMPH ABS # 2.58 K/uL (1.2-3.4); MEAN CORPUSCULAR HEMOGLOBIN 25.3 pg (25-34); MEAN CORPUSCULAR HGB CONC 31.3 g/dl (32-36); MEAN PLATELET VOLUME 10.3 fL (7.4-10.4); MONO % 8.5 %; PLATELET COUNT 167 K/uL (130-400); RED BLOOD COUNT 4.42 M/uL (4.2-5.4); WHITE BLOOD COUNT 8.84 K/uL (4.8-10.8)
[2016-11-16] MEDS ORDERED: METO-217 PO (20:48)
[2016-11-16] MEDS ORDERED: CLR10 PO (20:48)
[2016-11-16] MEDS ORDERED: CYCL10TA6 PO (20:48)
[2016-11-16] MEDS ORDERED: LACT1CAP3 PO (20:48)
[2016-11-16] MEDS ORDERED: LSN5 PO (20:48)
[2016-11-16] MEDS ORDERED: LSX20 PO (20:48)
[2016-11-16] MEDS ORDERED: AMLO-114 PO (20:48)
[2016-11-16] MEDS ORDERED: OLAN1TAB50 PO (20:48)
[2016-11-16] MEDS ORDERED: ZOLP5TAB PO (20:48)
[2016-11-16] MEDS ORDERED: POLY335019 PO (20:48)
[2016-11-16] MEDS ORDERED: CLON0.2T PO (20:56)
[2016-11-16 21:11] LABS: ALB/GLOB RATIO 0.8 (0.9-2); BUN/CREATININE RATIO 14.4 (10-20); CALCIUM 8.8 mg/dl (8.5-10.1); CREATININE 0.81 mg/dl (0.60-1.20); POTASSIUM 3.6 mmol/L (3.5-5.1)
[2016-11-16] MEDS ORDERED: LABETALOL HCL IV 5 MG/ML 20ML IV ONE (21:15)
[2016-11-16] MEDS ORDERED: HydrALAZINE HCL 20 MG/ML VIAL IV. STA (22:42)
--- NOTE | 2016-11-16 22:44 | History and Physical ---
History & Physical Date & Time of Service: Nov 16, 2016 at 22:43 Chief Complaint: High Blood Pressure Then Drops Low Primary Care Physician: No Doctor, Assigned History of Present Illness Source: patient Mrs Jameson is an 81 yo F with complicated PMHx (including orthostatic hypotension, RI, heart block s/p pacemaker, HTN, diastolic CHF, Lewy body dementia, hearing loss) who presents after a recent discharge on 09/24. At that time she was admitted for orthostatic hypotension, and all of her antihypertensive were stopped. She was discharged to a [facility] facility. She reports she felt well after that time. She returned home, and about 3 days ago she developed diarrhea. She reports she thinks it was viral because her daughter had the same thing. Since yesterday she has felt dizzy and lightheaded, and her blood pressures have started to rise daily. She remains orthostatic while in the ED. Her blood sugar was also found to be 49. She also has a new elevation of her LFTs. Currently she reports some intermittent abdominal pain, does report new bloating. Past Medical/Surgical History Medical Problems: (1) blood clot left ventricle Status: Resolved (2) Diabetes Status: Chronic (3) Exertional shortness of breath Status: Chronic (4) HTN (hypertension) Status: Chronic (5) Pacemaker Status: Chronic (6) Stroke Status: Resolved Family History Cancer Heart disease Hypertension Lung disease Social History Smoking Status: Never Smoker Smokeless Tobacco Use: No Alcohol Use: none Drug Use: none Marital Status: Housing status: lives with significant other Occupational Status: retired Immunizations History of Influenza Vaccine: Unknown History of Tetanus Vaccine?: Unknown History of Pneumococcal: Unknown History of Hepatitis B Vaccine: Unknown Multi-Drug Resistant Organisms History of MDRO: No Allergies Coded Allergies: Metformin (Verified Allergy, Mild, UNKNOWN, 11/16/16) Aspirin (Verified Allergy, Unknown, Unknown rxn, 11/16/16) Propoxyphene (Verified Allergy, Unknown, Unknown rxn, 11/16/16) Home Medications Scheduled Atorvastatin (Lipitor), 40 MG PO HS Clonidine Hcl (Catapres), 0.2 MG PO QAM Clopidogrel Bisulfate (Clopidogrel), 75 MG PO DAILY Docusate Sodium (Docusate Sodium), 200 MG PO HS Insulin Isophan/Regular (Humulin 70/30), 38 UNIT SC QAM Insulin Isophan/Regular (Humulin 70/30), 18 UNITS SC QPM Lactobacillus Rhamnosus (GG) (Culturelle), 1 CAP PO DAILY Lisinopril (Lisinopril), 5 MG PO DAILY Loratadine (Claritin), 10 MG PO DAILY Lubiprostone (Amitiza), 24 MCG PO DAILY Olanzapine (Zyprexa Zydis Odt), 10 MG PO HS Pantoprazole (Protonix), 20 MG PO DAILY Polyethylene Glycol 3350 (Miralax), 17 GM PO DAILY Pregabalin (Lyrica), 50 MG PO TID Sertraline (Zoloft), 25 MG PO DAILY Zolpidem Tartrate (Ambien), 5 MG PO HS Review of Systems See HPI for pertinent positives & negatives. A total of 10 systems reviewed and were otherwise negative. Physical Exam Vital Signs Date Time Temp Pulse Resp B/P (MAP) Pulse Ox O2 Delivery O2 Flow Rate FiO2 11/16/16 22:06 190/78 11/16/16 21:53 74 16 11/16/16 21:46 183/86 11/16/16 21:31 179/101 11/16/16 21:23 75 22 11/16/16 21:16 184/93 11/16/16 21:11 203/80 11/16/16 21:01 156/74 11/16/16 20:53 82 20 11/16/16 20:46 207/101 11/16/16 20:45 79 18 185/87 98 Room Air 11/16/16 20:45 79 185/97 81 204/77 91 140/85 11/16/16 20:39 140/85 11/16/16 20:38 204/77 11/16/16 20:37 185/97 11/16/16 20:31 178/102 11/16/16 20:23 78 19 11/16/16 20:16 173/95 11/16/16 20:15 80 18 201/117 98 Room Air 11/16/16 20:01 201/117 11/16/16 19:53 84 20 11/16/16 19:46 203/89 11/16/16 19:40 98 Room Air 11/16/16 19:36 203/108 11/16/16 19:29 89 11/16/16 19:26 200/81 11/16/16 18:52 37.5 82 19 169/78 95 Room Air General Appearance: WD/WN, no apparent distress Head: normocephalic, atraumatic Eyes: normal inspection, PERRL ENT: + pertinent finding (hearing impaired) Neck: supple, no JVD Respiratory/Chest: lungs clear, normal breath sounds, no respiratory distress Cardiovascular: regular rate, rhythm, no murmur, normal peripheral pulses Abdomen/GI: soft, + distended (soft, full, tympanic) Back: no CVA tenderness, no muscle spasm Extremities/Musculoskelatal: no calf tenderness Neurologic/Psych: alert, normal mood/affect, oriented x 3 Skin: no rash Diagnostics Laboratory Results Results Past 24 Hours Test 11/16/16 19:36 Range/Units White Blood Count 8.84 4.8-10.8 K/uL Red Blood Count 4.42 4.2-5.4 M/uL Hemoglobin 11.2 12.0-16.0 g/dL Hematocrit 35.8 37-47 % Mean Corpuscular Volume 81.0 80-100 fL Mean Corpuscular Hemoglobin 25.3 25-34 pg Mean Corpuscular Hemoglobin Concent 31.3 32-36 g/dl Platelet Count 167 130-400 K/uL Mean Platelet Volume 10.3 7.4-10.4 fL Neutrophils (%) (Auto) 60.0 % Lymphocytes (%) (Auto) 29.2 % Monocytes (%) (Auto) 8.5 % Eosinophils (%) (Auto) 2.1 % Basophils (%) (Auto) 0.1 % Neutrophils # (Auto) 5.30 1.4-6.5 K/uL Lymphocytes # (Auto) 2.58 1.2-3.4 K/uL Monocytes # (Auto) 0.75 0.11-0.59 K/uL Eosinophils # (Auto) 0.19 0-0.5 K/uL Basophils # (Auto) 0.01 0-0.2 K/uL RDW Standard Deviation 45.4 36.4-46.3 fL RDW Coefficient of Variation 15.4 11.5-14.5 % Immature Granulocyte % (Auto) 0.1 % Immature Granulocyte # (Auto) 0.01 0.00-0.02 K/uL Sodium Level 138 136-145 mmol/L Potassium Level 3.6 3.5-5.1 mmol/L Chloride Level 102 98-107 mmol/L Carbon Dioxide Level 30 21-32 mmol/L Anion Gap 6.0 3-11 mmol/L Blood Urea Nitrogen 12 7-18 mg/dl Creatinine 0.81 0.60-1.20 mg/dl Est Creatinine Clear Calc Drug Dose 52.6 ml/min Estimated GFR () 79.5 Estimated GFR (Non- 68.6 BUN/Creatinine Ratio 14.4 10-20 Random Glucose 49 70-99 mg/dl Calcium Level 8.8 8.5-10.1 mg/dl Total Bilirubin 0.4 0.2-1 mg/dl Aspartate Amino Transf (AST/SGOT) 251 15-37 U/L Alanine Aminotransferase (ALT/SGPT) 433 12-78 U/L Alkaline Phosphatase 273 45-117 U/L Total Protein 7.5 6.4-8.2 gm/dl Albumin 3.2 3.4-5.0 gm/dl Globulin 4.3 2.5-4.0 gm/dl Albumin/Globulin Ratio 0.8 0.9-2 EKG Poor data quality, interpretation may be adversely affected Atrial-sensed ventricular-paced rhythm Abnormal ECG When compared with ECG of 22-SEP-2016 07:42, Vent. rate has increased BY 4 BPM Impression Assessment and Plan 81 yo F with labile blood pressures, currently hypertensive with orthostasis. Hypoglycemia likely from combination of poor appetite with diarrheal illness and excessive insulin with 70/30 regime. Orthostasis and hypertension - Hydralazine 10 mg IV PRN - Restarting Clonidine 0.2mg daily and Lisinopril 5mg. Will hold off on Imdur for now. - Ddx includes if she has elements of Parkinson's which has affected her autonomic dysregulation Hypoglycemia - BSGs q6h - Improved to 129 1 hour later - Hold insulin for now Elevated LFTs - Liver US - Continue to trend CAD - Continue Plavix, statin Restless leg - Continue Lyrica Code status: Full Dispo: Tele Attending Addendum: I have physically seen and examined this patient, have directed the resident's medical activities, and agree with the H&P as noted above with the following exceptions as noted. The patient is awake, alert and oriented 3, well-developed and well-nourished , normocephalic and atraumatic, lying in bed and in no acute distress. HEENT--PERRL, EOMI, mucous membranes and oropharynx dry. Neck--supple, no JVD or bruits, thyroid normal, trachea midline, no adenopathy. Heart--normal S1 and S2, no extra beats, no murmurs, rubs or gallops. Lungs--clear bilaterally with good air movement, no respiratory distress, no accessory muscle use. Abdomen--normal bowel sounds and soft, nontender. Distended and mildly tympanitic. No hernias or masses, no organomegaly. Extremities--no cyanosis, clubbing or edema. There are good distal pulses b/l. Dermatologic--normal skin turgor, normal color, warm and dry, no abnormal lymph nodes, no rash. Neurologic--cranial nerves II through XII grossly intact, motor and sensory examination normal. Rheumatologic--normal range of motion, nontender, muscles and joints. Psychiatric--normal affect. Assessment and Plan: CAD/hypertension/pacemaker/diastolic CHF/recent volatile blood pressures as noted above-- The patient will be admitted to telemetry for serial cardiac enzymes, cardiac rhythm monitoring and a 2-D echocardiogram with Dopplers. Restart clonidine at 0.2 mg by mouth twice a day with hold parameters. This should not be an every morning drug , but should be a twice a day drug, to minimize volatility in blood pressure and heart rate. Continue lisinopril 5 mg by mouth daily. Continue clopidogrel 75 mg by mouth daily. Diabetes mellitus-- Blood sugar was 49 upon arrival to the ED, and is improved 129 after correction. Hold Humulin 70/30 dosing of 30 units subcutaneous every morning and 18 subcutaneous every afternoon for now. We'll need to verify the patient has been correctly taking her insulin, but most likely took her full dose of insulin when she had decreased oral intake due to a viral process with cause hypoglycemia. Elevated LFTs-- Liver ultrasound is pending. Add an INR and lipase. Repeat laboratories in a.m., and determine additional workup to be done at that time. Level of Care Telemetry Advanced Directives Existing Advance Directive: No Existing Living Will: No Existing Power of Pathology Laboratory Aide: No Resuscitation Status FULL RESUSCITATION VTE Prophylaxis VTE Risk Assessment Done? Y/N: Yes Risk Level: Moderate Given or contraindicated: SCD's Social Service Consult None Apply Resident Tracking Resident Involvement: Resident Care Provided Care Provided: Adult Hospital Medicine
[2016-11-16] MEDS ORDERED: GLUCOSE 10 TABS/TUBE PO PRN (22:45)
[2016-11-16] MEDS ORDERED: GLUCOSE 40% GEL 15 GM TUBE PO PRN (22:45)
[2016-11-16] MEDS ORDERED: DEXTROSE 50% 50 ML SYR IV PRN (22:45)
[2016-11-16] MEDS ORDERED: ACETAMINOPHEN 325 MG TAB PO PRN (22:45)
[2016-11-16] MEDS ORDERED: ONDANSETRON INJ 2 MG/ML 2 ML VIAL IV PRN (22:45)
[2016-11-16] MEDS ORDERED: MAGNESIUM HYDROXIDE SUSP 30 ML UDC PO PRN (22:45)
[2016-11-16] MEDS ORDERED: POLYETHYLENE (MIRALAX) 17 GM PACK PO PRN (22:45)
[2016-11-16] MEDS ORDERED: GLUCAGON FOR INJ 1 MG VIAL SQ PRN (22:45)
[2016-11-16] MEDS ORDERED: ALUMINUM/MAGNESIUM/SIMETH (MAALOX MAX) 30 ML UDC PO PRN (22:45)
[2016-11-16] MEDS ORDERED: HydrALAZINE HCL 20 MG/ML VIAL IV. PRN (22:45)
[2016-11-16 22:57] LABS: PROTHROMBIN TIME (PATIENT) 10.9 SECONDS (9.0-12.0)
[2016-11-17] VITALS (8 sets, daily range): BP systolic 118–202; BP diastolic 61–83; PULSE 69–95; TEMP 36.8–37.1; O2SAT 93–96; Ht 152.4 cm; Wt 81.5 kg
[2016-11-17 05:37] LABS: BASO % 0.2 %; BASO ABS # 0.01 K/uL (0-0.2); COMPLETE YES; HEMATOCRIT 35.8 % (37-47); IG% 0.5 %; LYMPH % 20.3 %; LYMPH ABS # 1.33 K/uL (1.2-3.4); MEAN CELL VOLUME 80.8 fL (80-100); MEAN CORPUSCULAR HEMOGLOBIN 25.7 pg (25-34); MEAN CORPUSCULAR HGB CONC 31.8 g/dl (32-36); MEAN PLATELET VOLUME 10.3 fL (7.4-10.4); MONO % 8.1 %; NEUT % 68.9 %; PLATELET COUNT 157 K/uL (130-400); RED BLOOD COUNT 4.43 M/uL (4.2-5.4); WHITE BLOOD COUNT 6.54 K/uL (4.8-10.8)
[2016-11-17 06:10] LABS: ALB/GLOB RATIO 0.8 (0.9-2); BUN/CREATININE RATIO 14.8 (10-20); CALCIUM 8.5 mg/dl (8.5-10.1); CREATININE 0.63 mg/dl (0.60-1.20); POTASSIUM 3.6 mmol/L (3.5-5.1)
--- NOTE | 2016-11-17 06:54 | DIAGNOSTIC IMAGING REPORT ---
BILIARY ULTRASOUND CLINICAL HISTORY: elevated liver enzymes COMPARISON STUDY: Noncontrast CT scan dated 07/13/2016 FINDINGS: The pancreas appears normal as visualized. The liver is slightly coarsened in echotexture. There are no focal hepatic masses. There is mild intra and extrahepatic biliary ductal dilatation. The common bile duct measures 10 mm. The gallbladder surgically absent. There is no right-sided hydronephrosis. IMPRESSION: 1. Surgically absent gallbladder 2. Coarsened hepatic echotexture without evidence of focal mass 3. Mild Intra and extrahepatic biliary ductal dilatation. The common bile duct measures 10 mm. Electronically signed by: Naveen Watts M.D. 11/17/2016 6:53 AM Dictated Date/Time: 11/17/2016 6:50 AM
[2016-11-17] MEDS: LORATADINE 10 MG TAB PO SCH (08:04)
[2016-11-17] MEDS: LISINOPRIL 5 MG TAB PO SCH (08:05)
[2016-11-17] MEDS: PANTOprazole SOD 40 MG TAB PO SCH (08:05)
[2016-11-17] MEDS: CLONIDINE HCL 0.1 MG TAB PO SCH ×2 (08:06→20:40)
[2016-11-17] MEDS: CLOPIDOGREL BISULFATE 75 MG TAB PO SCH (08:06)
[2016-11-17] MEDS: SERTRALINE HCL 50 MG TAB PO SCH (08:07)
[2016-11-17] MEDS: INSULIN ASPART 100 UNITS/ML 3 ML PEN SC SCH ×4 (08:17→20:41)
[2016-11-17] MEDS: PREGABALIN 50 MG CAP PO SCH ×3 (08:53→20:39)
[2016-11-17] MEDS ORDERED: CLONIDINE HCL 0.1 MG TAB PO SCH (09:00)
[2016-11-17] MEDS ORDERED: LUBIPROSTONE 8 MCG CAP PO SCH (09:00)
--- NOTE | 2016-11-17 16:07 | Progress Note ---
Subjective Date of Service: Nov 17, 2016. Subjective Pt evaluation today including: conversation w/ patient, physical exam, lab review, review of inpatient medication list Pain: no pain PO Intake: adequate Voiding: no voiding problems patient feeling better today no diarrhea for a few days says that she had problems with constipation, but even when she moves bowels they are loose takes Miralax daily said that she did really well when at rehab after last discharge when all her BP medications were stopped, started on Florinef for low BP and orthostasis said that she went to her PCP and that he increased her insulin and resumed blood pressure medications she was displeased with PCP and she and are looking to transfer to Dr. Thompson in [place] Problem List Medical Problems: (1) Abdominal pain Status: Acute (2) Lightheadedness Status: Acute (3) Nausea Status: Acute (4) Orthostatic hypotension Status: Acute (5) UTI (urinary tract infection) Status: Acute (6) Weakness Status: Acute Review of Systems Constitutional: + weakness, + fatigue All Other Systems: Reviewed and Negative Medications Current Inpatient Medications Medications (Trade) Dose Ordered Sig/Holden Route Start Time Stop Time Status Last Admin Dose Admin Acetaminophen (Tylenol Tab) 650 mg Q4H PRN PO 11/16/16 22:45 12/16/16 22:44 11/17/16 00:28 650 MG Al Hydrox/Mg Hydrox/Simethicone (Maalox Max Susp) 15 ml Q4H PRN PO 11/16/16 22:45 12/16/16 22:44 Magnesium Hydroxide (Milk Of Magnesia Susp) 30 ml Q12H PRN PO 11/16/16 22:45 12/16/16 22:44 Ondansetron HCl (Zofran Inj) 4 mg Q6H PRN IV 11/16/16 22:45 12/16/16 22:44 11/17/16 04:29 4 MG Atorvastatin Calcium (Lipitor Tab) 40 mg HS PO 11/17/16 21:00 12/17/16 20:59 Clopidogrel Bisulfate (plAVix TAB) 75 mg DAILY PO 11/17/16 09:00 12/17/16 08:59 11/17/16 08:06 75 MG Lisinopril (Zestril Tab) 5 mg DAILY PO 11/17/16 09:00 12/17/16 08:59 11/17/16 08:05 5 MG Loratadine (Claritin Tab) 10 mg DAILY PO 11/17/16 09:00 12/17/16 08:59 11/17/16 08:04 10 MG Olanzapine (Zyprexa Zydis Od Tab) 10 mg HS PO 11/17/16 21:00 12/17/16 20:59 Pantoprazole Sodium (Protonix Tab) 40 mg DAILY PO 11/17/16 09:00 12/17/16 08:59 11/17/16 08:05 40 MG Pregabalin (Lyrica Cap) 50 mg TID PO 11/17/16 09:00 12/17/16 08:59 11/17/16 14:04 50 MG Sertraline HCl (Zoloft Tab) 25 mg DAILY PO 11/17/16 09:00 12/17/16 08:59 11/17/16 08:07 25 MG Zolpidem Tartrate (Ambien Tab) 5 mg HS PO 11/17/16 21:00 12/17/16 20:59 Insulin Aspart (novoLOG ASPART) SLIDING SCALE If C... ACHS SC 11/17/16 06:30 12/17/16 06:59 11/17/16 12:24 3 UNITS Glucose (Glucose 40% Gel) 15-30 GRAMS 15 GRAMS... UD PRN PO 11/16/16 22:45 12/16/16 22:44 Glucose (Glucose Chew Tab) 4-8 Tablets 4 Tabl... UD PRN PO 11/16/16 22:45 12/16/16 22:44 Dextrose (Dextrose 50% 50ML Syringe) 25-50ML OF 50% DW IV FOR... UD PRN IV 11/16/16 22:45 12/16/16 22:44 Glucagon (Glucagon Inj) 1 mg UD PRN SQ 11/16/16 22:45 12/16/16 22:44 Hydralazine HCl (HydrALAZINE INJ) 10 mg Q6H PRN IV. 11/16/16 22:45 12/16/16 22:44 11/17/16 03:31 10 MG Clonidine HCl (Catapres Tab) 0.2 mg BID PO 11/17/16 09:00 12/17/16 08:59 11/17/16 08:06 0.2 MG Fludrocortisone Acetate (Florinef Tab) 0.1 mg QAM PO 11/18/16 09:00 12/18/16 08:59 Objective Vital Signs Date Time Temp Pulse Resp B/P (MAP) Pulse Ox O2 Delivery O2 Flow Rate FiO2 11/17/16 14:57 36.9 69 16 118/67 (84) 94 Room Air 11/17/16 12:00 Room Air 11/17/16 11:55 36.8 81 16 145/65 (91) 93 Room Air 11/17/16 08:03 91 156/77 (103) 11/17/16 08:00 Room Air 11/17/16 07:36 36.8 90 16 171/72 (105) 93 Room Air 11/17/16 05:00 141/61 (87) 11/17/16 05:00 164/78 (106) 11/17/16 04:56 36.9 93 20 175/67 (103) 95 Room Air 11/17/16 04:00 Room Air 11/17/16 03:28 37.1 95 22 202/83 (122) 96 Room Air 11/17/16 00:29 36.9 79 16 171/78 93 Room Air 11/17/16 00:00 Room Air 11/16/16 23:41 80 18 166/67 94 11/16/16 23:06 78 11/16/16 22:06 190/78 11/16/16 21:53 74 16 11/16/16 21:46 183/86 11/16/16 21:31 179/101 11/16/16 21:23 75 22 11/16/16 21:16 184/93 11/16/16 21:11 203/80 11/16/16 21:01 156/74 11/16/16 20:53 82 20 11/16/16 20:46 207/101 11/16/16 20:45 79 18 185/87 98 Room Air 11/16/16 20:45 79 185/97 81 204/77 91 140/85 11/16/16 20:39 140/85 11/16/16 20:38 204/77 11/16/16 20:37 185/97 11/16/16 20:31 178/102 11/16/16 20:23 78 19 11/16/16 20:16 173/95 11/16/16 20:15 80 18 201/117 98 Room Air 11/16/16 20:01 201/117 11/16/16 19:53 84 20 11/16/16 19:46 203/89 11/16/16 19:40 98 Room Air 11/16/16 19:36 203/108 11/16/16 19:29 89 11/16/16 19:26 200/81 11/16/16 18:52 37.5 82 19 169/78 95 Room Air Physical Exam General Appearance: WD/WN, no apparent distress Neck: supple, no adenopathy, no JVD, trachea midline Respiratory/Chest: chest non-tender, lungs clear, normal breath sounds, no respiratory distress, no accessory muscle use Cardiovascular: regular rate, rhythm, no edema, no gallop, no JVD, no murmur Abdomen: normal bowel sounds, non tender, soft, no organomegaly Extremities: normal range of motion, non-tender, normal inspection, no pedal edema, no calf tenderness, pelvis stable 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, alert, normal mood/affect, oriented x 3, + motor weakness (generalized) Skin: normal color, warm/dry, no rash Lymphatic: no adenopathy Laboratory Results Last 24 Hours Test 11/16/16 19:34 11/16/16 19:36 11/16/16 19:59 11/16/16 20:43 Prothrombin Time 10.9 SECONDS Prothromb Time International Ratio 1.0 White Blood Count 8.84 K/uL Red Blood Count 4.42 M/uL Hemoglobin 11.2 g/dL Hematocrit 35.8 % Mean Corpuscular Volume 81.0 fL Mean Corpuscular Hemoglobin 25.3 pg Mean Corpuscular Hemoglobin Concent 31.3 g/dl Platelet Count 167 K/uL Mean Platelet Volume 10.3 fL Neutrophils (%) (Auto) 60.0 % Lymphocytes (%) (Auto) 29.2 % Monocytes (%) (Auto) 8.5 % Eosinophils (%) (Auto) 2.1 % Basophils (%) (Auto) 0.1 % Neutrophils # (Auto) 5.30 K/uL Lymphocytes # (Auto) 2.58 K/uL Monocytes # (Auto) 0.75 K/uL Eosinophils # (Auto) 0.19 K/uL Basophils # (Auto) 0.01 K/uL RDW Standard Deviation 45.4 fL RDW Coefficient of Variation 15.4 % Immature Granulocyte % (Auto) 0.1 % Immature Granulocyte # (Auto) 0.01 K/uL Sodium Level 138 mmol/L Potassium Level 3.6 mmol/L Chloride Level 102 mmol/L Carbon Dioxide Level 30 mmol/L Anion Gap 6.0 mmol/L Blood Urea Nitrogen 12 mg/dl Creatinine 0.81 mg/dl Est Creatinine Clear Calc Drug Dose 52.6 ml/min Estimated GFR () 79.5 Estimated GFR (Non- 68.6 BUN/Creatinine Ratio 14.4 Random Glucose 49 mg/dl Calcium Level 8.8 mg/dl Total Bilirubin 0.4 mg/dl Aspartate Amino Transf (AST/SGOT) 251 U/L Alanine Aminotransferase (ALT/SGPT) 433 U/L Alkaline Phosphatase 273 U/L Total Protein 7.5 gm/dl Albumin 3.2 gm/dl Globulin 4.3 gm/dl Albumin/Globulin Ratio 0.8 Lipase 62 U/L Bedside Glucose 53 mg/dl 129 mg/dl Test 11/17/16 04:06 11/17/16 05:18 11/17/16 07:23 11/17/16 11:33 Bedside Glucose 134 mg/dl 203 mg/dl 254 mg/dl White Blood Count 6.54 K/uL Red Blood Count 4.43 M/uL Hemoglobin 11.4 g/dL Hematocrit 35.8 % Mean Corpuscular Volume 80.8 fL Mean Corpuscular Hemoglobin 25.7 pg Mean Corpuscular Hemoglobin Concent 31.8 g/dl Platelet Count 157 K/uL Mean Platelet Volume 10.3 fL Neutrophils (%) (Auto) 68.9 % Lymphocytes (%) (Auto) 20.3 % Monocytes (%) (Auto) 8.1 % Eosinophils (%) (Auto) 2.0 % Basophils (%) (Auto) 0.2 % Neutrophils # (Auto) 4.51 K/uL Lymphocytes # (Auto) 1.33 K/uL Monocytes # (Auto) 0.53 K/uL Eosinophils # (Auto) 0.13 K/uL Basophils # (Auto) 0.01 K/uL RDW Standard Deviation 45.4 fL RDW Coefficient of Variation 15.3 % Immature Granulocyte % (Auto) 0.5 % Immature Granulocyte # (Auto) 0.03 K/uL Sodium Level 140 mmol/L Potassium Level 3.6 mmol/L Chloride Level 104 mmol/L Carbon Dioxide Level 32 mmol/L Anion Gap 4.0 mmol/L Blood Urea Nitrogen 9 mg/dl Creatinine 0.63 mg/dl Est Creatinine Clear Calc Drug Dose 67.5 ml/min Estimated GFR () 98.2 Estimated GFR (Non- 84.7 BUN/Creatinine Ratio 14.8 Random Glucose 159 mg/dl Calcium Level 8.5 mg/dl Total Bilirubin 0.4 mg/dl Aspartate Amino Transf (AST/SGOT) 161 U/L Alanine Aminotransferase (ALT/SGPT) 347 U/L Alkaline Phosphatase 262 U/L Total Protein 6.8 gm/dl Albumin 3.1 gm/dl Globulin 3.7 gm/dl Albumin/Globulin Ratio 0.8 Assessment and Plan 81 yo F with labile blood pressures, currently hypertensive with orthostasis. Hypoglycemia likely from combination of poor appetite with diarrheal illness and excessive insulin with 70/30 regime. Orthostasis and hypertension - labile BP with highs of 170 systolic and then later in the day, 120 systolic - continue Clonidine 0.2mg BID and can continue Lisinopril 5mg daily (dose should not really affect BP) - start Florinef to treat the orthostasis, 0.1mg PO qAM (discharged on Florinef last admission, not sure what happened) - continue to monitor closely, get PT/OT to evaluate Hypoglycemia: resolved, AM 70/30 insulin was held on admission - no issues with hypoglycemia until PCP recently increased dosage to 38/18 - will ask pharmacy to order Lantus and Novolog, try to change her regimen to prevent hypoglycemia - hypoglycemia also likely triggered by poor oral intake and diarrhea Elevated LFTs - Liver US: absent GB, dilated CBC which would be expected with cholecystectomy - trending down, will repeat tomorrow - if in fact her diarrhea was self limiting viral illness, would suspect that transaminitis was also a result of viral infection Diarrhea/Constipation - chronic issues with constipation with recent diarrheal illness that her daughter also had - if she continues to have loose stools, would worry about post infectious IBS - can check stool studies if diarrhea is problematic CAD - Continue Plavix, statin Restless leg - Continue Lyrica transfer to medical floor PT/OT consult follow BP closely with changes
[2016-11-17] MEDS: ZOLPIDEM TARTRATE 5 MG TAB PO SCH (20:39)
[2016-11-17] MEDS: ATORVASTATIN 20 MG TAB PO SCH (20:40)
[2016-11-17] MEDS: OLANZAPINE ZYDIS 10 MG ORALLY DIS. TAB PO SCH (20:40)
[2016-11-17] MEDS: INSULIN GLARGINE SOLOSTAR 100 UNITS/ML 3 ML PEN SC SCH (20:51)
[2016-11-17] MEDS ORDERED: INSULIN HUMAN 70% NPH/30% REGULAR SC SCH (21:00)
[2016-11-18 00:16] VITALS: BP 118/62; PULSE 66; TEMP 36.9; O2SAT 89
[2016-11-18 07:18] LABS: BASO % 0.3 %; BASO ABS # 0.02 K/uL (0-0.2); COMPLETE YES; HEMATOCRIT 32.3 % (37-47); IG% 0.3 %; LYMPH % 30.3 %; MEAN CELL VOLUME 80.3 fL (80-100); MEAN CORPUSCULAR HEMOGLOBIN 25.6 pg (25-34); MEAN CORPUSCULAR HGB CONC 31.9 g/dl (32-36); MEAN PLATELET VOLUME 10.4 fL (7.4-10.4); MONO % 10.7 %; NEUT % 55.4 %; PLATELET COUNT 151 K/uL (130-400); RED BLOOD COUNT 4.02 M/uL (4.2-5.4); WHITE BLOOD COUNT 6.28 K/uL (4.8-10.8)
[2016-11-18 07:34] VITALS: BP 167/76; PULSE 66; TEMP 37; O2SAT 95
[2016-11-18 07:52] LABS: ALB/GLOB RATIO 0.8 (0.9-2); BUN/CREATININE RATIO 16.9 (10-20); CALCIUM 8.6 mg/dl (8.5-10.1); CREATININE 0.91 mg/dl (0.60-1.20); POTASSIUM 4.2 mmol/L (3.5-5.1)
[2016-11-18] MEDS ORDERED: INSULIN HUMAN 70% NPH/30% REGULAR SC SCH (09:00)
[2016-11-18 09:03] VITALS: BP 145/76; PULSE 65
[2016-11-18] MEDS: PREGABALIN 50 MG CAP PO SCH ×3 (09:05→20:35)
[2016-11-18] MEDS: CLONIDINE HCL 0.1 MG TAB PO SCH ×2 (09:06→20:36)
[2016-11-18] MEDS: SERTRALINE HCL 50 MG TAB PO SCH (09:06)
[2016-11-18] MEDS: PANTOprazole SOD 40 MG TAB PO SCH (09:06)
[2016-11-18] MEDS: LORATADINE 10 MG TAB PO SCH (09:06)
[2016-11-18] MEDS: CLOPIDOGREL BISULFATE 75 MG TAB PO SCH (09:06)
[2016-11-18] MEDS: FLUDROCORTISONE ACETATE 0.1 MG TAB PO SCH (09:07)
[2016-11-18] MEDS: LISINOPRIL 5 MG TAB PO SCH (09:07)
[2016-11-18] MEDS: INSULIN ASPART 100 UNITS/ML 3 ML PEN SC SCH ×4 (09:09→20:45)
[2016-11-18] MEDS: INSULIN GLARGINE SOLOSTAR 100 UNITS/ML 3 ML PEN SC SCH ×2 (09:10→20:43)
[2016-11-18] MEDS ORDERED: PHARMACY GLYCEMIC MGMT CONSULT PRN (12:04)
[2016-11-18] MEDS ORDERED: POLYETHYLENE (MIRALAX) 17 GM PACK PO ONE (12:15)
--- NOTE | 2016-11-18 13:43 | Pharmacy Progress Note ---
Glycemic Control Intl Consult Date of Service Nov 18, 2016. Scope Glycemic Pharmacist consulted by Dr Patricia on 11/18/16 for glycemic control and to write orders per [facility] inpatient glycemic control protocol Objective Weight (Kilograms): 81.500 Accuchecks BSG (last 24hrs): Test 11/17/16 16:14 11/17/16 20:14 11/18/16 06:48 11/18/16 07:12 Bedside Glucose 208 mg/dl (70-90) 196 mg/dl (70-90) 155 mg/dl (70-90) Random Glucose 164 mg/dl (70-99) Test 11/18/16 11:30 Bedside Glucose 213 mg/dl (70-90) Laboratory Data (last 24hrs) Test 11/18/16 06:48 Anion Gap 5.0 mmol/L BUN/Creatinine Ratio 16.9 Blood Urea Nitrogen 15 mg/dl Creatinine 0.91 mg/dl Potassium Level 4.2 mmol/L Sodium Level 140 mmol/L White Blood Count 6.28 K/uL Red Blood Count 4.02 M/uL Hemoglobin 10.3 g/dL Hematocrit 32.3 % Mean Corpuscular Volume 80.3 fL Mean Corpuscular Hemoglobin 25.6 pg Mean Corpuscular Hemoglobin Concent 31.9 g/dl Platelet Count 151 K/uL Mean Platelet Volume 10.4 fL Neutrophils (%) (Auto) 55.4 % Lymphocytes (%) (Auto) 30.3 % Monocytes (%) (Auto) 10.7 % Eosinophils (%) (Auto) 3.0 % Basophils (%) (Auto) 0.3 % Neutrophils # (Auto) 3.48 K/uL Lymphocytes # (Auto) 1.90 K/uL Monocytes # (Auto) 0.67 K/uL Eosinophils # (Auto) 0.19 K/uL Basophils # (Auto) 0.02 K/uL Recent Pertinent Medications Outpatient Anti-diabetic Regimen: * Humulin 70/30 38 units in AM + 18 units in PM * A1c = 8.6 % 07/14/16 The patient is currently receiving: * Basal insulin: Lantus 10 units every 12 hours * Correctional Insulin: Novolog Correction per scale ACHS Goal Range: Low 140 mg/dL - High 180 mg/dL Correction Factor: 30 mg/dL/unit * Prandial insulin: Per carb ratio of 1 unit per 20 grams CHO consumed Assessment & Plan ASSESSMENT: * 81 yo diabetic F admitted with hypertension over 24 hours ago, initially hypoglycemic in ER from recent medication changes * Per patient, her insulin regimen was recently increased and she had not been tolerating this well * 70/30 held on admission, Novolog ordered, and BSGs have been in the low-mid 200's for the past 24 hours * MD did initiate basal insulin last night which helped this AMs fasting BSG to be 155 * My plan will be to continue current basal dose (given history of morning hypoglycemia) and tighten current Novolog regimen PLAN FOR INPATIENT GLYCEMIC CONTROL: * Basal insulin with LANTUS 10 units SQ BID * Correctional Insulin with NOVOLOG per scale ACHS or Q6hrs while NPO * Goal Range: Low 110 mg/dL - High 140 mg/dL * Correction Factor: 30 mg/dL/unit * Nutritional / Prandial insulin per carb ratio of 1 unit per 10 grams CHO consumed LOOKING AHEAD TO DISCHARGE: * Need to speak with patient/MD regarding prior Humulin 70/30 dosing before recent increase and get details as to why the increase was made (example, Fasting highs, prandial highs?, frequency of above goal range BSGs?) * For now, she needs a decrease at discharge- more to follow * Please note that the plan above was derived based on current level of insulin resistance and hospital stress. These recommendations are appropriate for inpatient admission only. Plan of care upon discharge will need to be reassessed to avoid potential outpatient hypo/hyperglycemia. Thank you.
--- NOTE | 2016-11-18 14:42 | Progress Note ---
Subjective Date of Service: Nov 18, 2016. Subjective Pt evaluation today including: conversation w/ patient, conversation w/ family , physical exam, chart review, lab review, review of studies, review of inpatient medication list Pain: none reported PO Intake: good intake Voiding: no voiding problems, no incontinence pt is seen and examined by me.Pt states she is feeling better, but still dizzy when stand and wants something for constipation. Pt denies cp, sob, palpitation and low sugars. Problem List Medical Problems: (1) Abdominal pain Status: Acute (2) Lightheadedness Status: Acute (3) Nausea Status: Acute (4) Orthostatic hypotension Status: Acute (5) UTI (urinary tract infection) Status: Acute (6) Weakness Status: Acute Review of Systems Constitutional: No fever, No chills Eyes: No worsening of vision Respiratory: No shortness of breath, No dyspnea on exertion Cardiac: No chest pain, No edema, No palpitations Abdomen: + constipation, No pain, No nausea, No vomiting, No diarrhea Neurologic: + problem reported (dizziness) Psychiatric: No depression symptoms Objective Vital Signs Date Time Temp Pulse Resp B/P (MAP) Pulse Ox O2 Delivery O2 Flow Rate FiO2 11/18/16 09:03 65 145/76 (99) 11/18/16 08:00 Room Air 11/18/16 07:34 37.0 66 18 167/76 (106) 95 Nasal Cannula 2.0 11/18/16 04:00 Room Air 11/18/16 00:16 36.9 66 16 118/62 (80) 89 Room Air 11/18/16 00:00 Room Air 11/17/16 20:00 Room Air 11/17/16 16:00 Room Air 11/17/16 14:57 36.9 69 16 118/67 (84) 94 Room Air Physical Exam Comments: General Appearance: WD/WN, no apparent distress Neck: supple, no adenopathy, no JVD, trachea midline Respiratory/Chest: chest non-tender, lungs clear, normal breath sounds, no respiratory distress, no accessory muscle use Cardiovascular: regular rate, rhythm, no edema, no gallop, no JVD, no murmur Abdomen: normal bowel sounds, non tender, soft, no organomegaly Extremities: normal range of motion, non-tender, normal inspection, no pedal edema, no calf tenderness, pelvis stable Neurologic/Psychiatric: manager pest II-XII nml as tested, alert, normal mood/affect, oriented x 3, + motor weakness (generalized) Skin: normal color, warm/dry, no rash Lymphatic: no adenopathy Laboratory Results Last 24 Hours Test 11/17/16 16:14 11/17/16 20:14 11/18/16 06:48 11/18/16 07:12 Bedside Glucose 208 mg/dl 196 mg/dl 155 mg/dl White Blood Count 6.28 K/uL Red Blood Count 4.02 M/uL Hemoglobin 10.3 g/dL Hematocrit 32.3 % Mean Corpuscular Volume 80.3 fL Mean Corpuscular Hemoglobin 25.6 pg Mean Corpuscular Hemoglobin Concent 31.9 g/dl Platelet Count 151 K/uL Mean Platelet Volume 10.4 fL Neutrophils (%) (Auto) 55.4 % Lymphocytes (%) (Auto) 30.3 % Monocytes (%) (Auto) 10.7 % Eosinophils (%) (Auto) 3.0 % Basophils (%) (Auto) 0.3 % Neutrophils # (Auto) 3.48 K/uL Lymphocytes # (Auto) 1.90 K/uL Monocytes # (Auto) 0.67 K/uL Eosinophils # (Auto) 0.19 K/uL Basophils # (Auto) 0.02 K/uL RDW Standard Deviation 46.0 fL RDW Coefficient of Variation 15.6 % Immature Granulocyte % (Auto) 0.3 % Immature Granulocyte # (Auto) 0.02 K/uL Sodium Level 140 mmol/L Potassium Level 4.2 mmol/L Chloride Level 102 mmol/L Carbon Dioxide Level 33 mmol/L Anion Gap 5.0 mmol/L Blood Urea Nitrogen 15 mg/dl Creatinine 0.91 mg/dl Est Creatinine Clear Calc Drug Dose 46.6 ml/min Estimated GFR () 69.1 Estimated GFR (Non- 59.6 BUN/Creatinine Ratio 16.9 Random Glucose 164 mg/dl Calcium Level 8.6 mg/dl Total Bilirubin 0.4 mg/dl Aspartate Amino Transf (AST/SGOT) 69 U/L Alanine Aminotransferase (ALT/SGPT) 226 U/L Alkaline Phosphatase 214 U/L Total Protein 6.5 gm/dl Albumin 2.8 gm/dl Globulin 3.7 gm/dl Albumin/Globulin Ratio 0.8 Test 11/18/16 11:30 Bedside Glucose 213 mg/dl Assessment and Plan 81 yo F with labile blood pressures, currently hypertensive with orthostasis. Hypoglycemia likely from combination of poor appetite with diarrheal illness and excessive insulin with 70/30 regime. Orthostasis and hypertension - labile BP with highs of 170 systolic and then later in the day, 140 systolic - continue Clonidine 0.2mg BID and can continue Lisinopril 5mg daily (dose should not really affect BP) - start Florinef to treat the orthostasis, 0.1mg PO q AM (discharged on Florinef last admission, not sure what happened), first dose of Florinef today, if still orthostatic will consult cardiology. - continue to monitor closely, get PT/OT to evaluate Hypoglycemia: resolved, AM 70/30 insulin was held on admission - no issues with hypoglycemia until PCP recently increased dosage to 38/18 - will ask pharmacy to order Lantus and Novolog, try to change her regimen to prevent hypoglycemia - Management as per pharmacy Elevated LFTs - Liver US: absent GB, dilated CBC which would be expected with cholecystectomy - trending down. Constipation - chronic issues with constipation. - laxatives CAD - Continue Plavix, statin Restless leg - Continue Lyrica Continued [facility] stay due to: home environment unsafe for pt Discharge planning: home with home health
--- NOTE | 2016-11-18 17:57 | EMERGENCY ROOM VISIT NOTE ---
ED Visit Note First contact with patient: 19:22 Resident Physician Supervision Note: I interviewed and examined the patient. Discussed with Dr. Garcia and agree with findings and plan as documented in the note. Pt is noted to be orthostatic , but hypertensive. Given her symptomatology, she will require evaluation by the hospitalist service. Please refer to Dr Garcia's notes for further detail on history, physical and visit. Documented By: Malia Brush
[2016-11-18 19:58] VITALS: BP 134/77; PULSE 80; TEMP 36.9; O2SAT 90
[2016-11-18] MEDS: OLANZAPINE ZYDIS 10 MG ORALLY DIS. TAB PO SCH (20:35)
[2016-11-18] MEDS: ZOLPIDEM TARTRATE 5 MG TAB PO SCH (20:35)
[2016-11-18] MEDS: ATORVASTATIN 20 MG TAB PO SCH (20:36)
[2016-11-18] MEDS ORDERED: INSULIN GLARGINE SOLOSTAR 100 UNITS/ML 3 ML PEN SC SCH (21:00)
[2016-11-19 00:08] VITALS: BP 140/56; PULSE 65; TEMP 36.7; O2SAT 93
[2016-11-19 06:55] LABS: BASO % 0.6 %; BASO ABS # 0.04 K/uL (0-0.2); COMPLETE YES; EOS % 2.1 %; HEMATOCRIT 33.2 % (37-47); IG% 0.3 %; LYMPH % 31.8 %; LYMPH ABS # 2.25 K/uL (1.2-3.4); MEAN CELL VOLUME 80.8 fL (80-100); MEAN CORPUSCULAR HGB CONC 32.2 g/dl (32-36); MEAN PLATELET VOLUME 10.5 fL (7.4-10.4); MONO % 9.6 %; NEUT % 55.6 %; PLATELET COUNT 156 K/uL (130-400); RED BLOOD COUNT 4.11 M/uL (4.2-5.4); WHITE BLOOD COUNT 7.08 K/uL (4.8-10.8)
[2016-11-19 07:33] LABS: BUN/CREATININE RATIO 18.9 (10-20); CALCIUM 8.6 mg/dl (8.5-10.1); CREATININE 0.89 mg/dl (0.60-1.20); POTASSIUM 4.1 mmol/L (3.5-5.1)
[2016-11-19 07:36] LABS: ALB/GLOB RATIO 0.8 (0.9-2)
[2016-11-19 08:00] VITALS: BP 128/55; PULSE 64; TEMP 36.9; O2SAT 92
[2016-11-19] MEDS: INSULIN ASPART 100 UNITS/ML 3 ML PEN SC SCH (08:11)
[2016-11-19] MEDS: INSULIN GLARGINE SOLOSTAR 100 UNITS/ML 3 ML PEN SC SCH (08:12)
[2016-11-19] MEDS: CLOPIDOGREL BISULFATE 75 MG TAB PO SCH (08:13)
[2016-11-19] MEDS: LISINOPRIL 5 MG TAB PO SCH (08:13)
[2016-11-19] MEDS: CLONIDINE HCL 0.1 MG TAB PO SCH (08:13)
[2016-11-19] MEDS: FLUDROCORTISONE ACETATE 0.1 MG TAB PO SCH (08:13)
[2016-11-19] MEDS: SERTRALINE HCL 50 MG TAB PO SCH (08:13)
[2016-11-19] MEDS: PANTOprazole SOD 40 MG TAB PO SCH (08:13)
[2016-11-19] MEDS: LORATADINE 10 MG TAB PO SCH (08:13)
[2016-11-19] MEDS: PREGABALIN 50 MG CAP PO SCH (08:18)
[2016-11-19] MEDS ORDERED: POLYETHYLENE (MIRALAX) 17 GM PACK PO SCH (09:00)
[2016-11-19 09:34] VITALS: BP 106/84; PULSE 120
--- NOTE | 2016-11-19 09:42 | Discharge Instructions ---
Discharge Instructions Date of Service Nov 19, 2016. Admission Reason for Admission: Lft's, Hypoglycemia, Orthostatic Hypotension Discharge Discharge Diagnosis / Problem: dizziness, hypoglycemia Discharge Goals Goal(s): Decrease discomfort, Improve function, Increase independence, Improve nutritional status Activity Recommendations Activity Limitations: as noted below Lifting Limitations: gradually increase as tolerated Exercise/Sports Limitations: gradually increase as tolerated May Resume Sexual Activity: when tolerated Shower/Bathe: no limitations Driving or Machine Use: dementia . Instructions / Follow-Up Instructions / Follow-Up Pt was advise to pick a new pcp. Current Hospital Diet Patient's current hospital diet: AHA Diet (Heart Healthy), Diabetes Type 2 Diet Discharge Diet Recommended Diet: Diabetes Type 2 Diet Pending Studies Studies pending at discharge: no Medical Emergencies . Who to Call and When: Medical Emergencies: If at any time you feel your situation is an emergency, please call 911 immediately. . Non-Emergent Contact Non-Emergency issues call your: Primary Care Provider Call Non-Emergent contact if: you have a fever, you have any medication questions . . "Provider Documentation" section prepared by Ofelia Guthrie . VTE Core Measure Inpt VTE Proph given/why not?: SCD's
[2016-11-19] MEDS ORDERED: FLR1 PO (09:47)
--- NOTE | 2016-11-19 09:57 | Discharge Summary ---
Discharge Summary Date of Service Nov 19, 2016. Discharge Summary Admission Date: Nov 16, 2016 at 22:41 Discharge Date: Nov 19, 2016 Discharge Disposition: Home Principal Diagnosis: dizziness, orthostatis Problems/Secondary Diagnoses: hypoglycemia Immunizations: Have You Had Influenza Vaccine: Unknown History of Tetanus Vaccine?: Unknown History of Pneumococcal: Unknown History of Hepatitis B Vaccine: Unknown Medication Reconciliation New Medications: Fludrocortisone Acetate (Fludrocortisone Acetate) 0.1 Mg Tab 0.1 MG PO QAM, #30 TAB Continued Medications: Atorvastatin (Lipitor) 40 Mg Tab 40 MG PO HS, TAB Clonidine Hcl (Catapres) 0.2 Mg Tab 0.2 MG PO QAM, TAB Clopidogrel Bisulfate (Clopidogrel) 75 Mg Tab 75 MG PO DAILY Docusate Sodium (Docusate Sodium) 100 Mg Cap 200 MG PO HS for 30 Days, CAP Insulin Isophan/Regular (Humulin 70/30) Susp 38 UNIT SC QAM, VIAL Insulin Isophan/Regular (Humulin 70/30) Susp 18 UNITS SC QPM, VIAL Lactobacillus Rhamnosus (GG) (Culturelle) 10 B Cell Cap 1 CAP PO DAILY Lisinopril (Lisinopril) 5 Mg Tab 5 MG PO DAILY Lubiprostone (Amitiza) 8 Mcg Cap 24 MCG PO DAILY Olanzapine (Zyprexa Zydis Odt) 10 Mg Marely 10 MG PO HS, MARELY Pantoprazole (Protonix) 40 Mg Tab 20 MG PO DAILY, TAB Polyethylene Glycol 3350 (Miralax) 1 Pow Pow 17 GM PO DAILY, GM Pregabalin (Lyrica) 50 Mg Cap 50 MG PO TID, CAP Sertraline (Zoloft) 50 Mg Tab 25 MG PO DAILY, TAB Discontinued Medications: Loratadine (Claritin) 10 Mg Tab 10 MG PO DAILY, TAB Zolpidem Tartrate (Ambien) 5 Mg Tab 5 MG PO HS, TAB Discharge Exam Review of Systems: Constitutional: No fever, No chills Respiratory: No cough, No sputum, No shortness of breath, No dyspnea on exertion Cardiovascular: No chest pain Abdomen: No pain, No nausea, No vomiting Genitourinary - Female: No urinary frequency, No urinary retention, No rash Neurologic: + numbness/tingling (neuropathy), No paralysis, No weakness, No balance problems Integumentary: No rash Physical Exam: General Appearance: no apparent distress Eyes: EOMI, sclerae normal Neck: supple, no adenopathy Respiratory/Chest: lungs clear, normal breath sounds, no respiratory distress, no accessory muscle use Cardiovascular: regular rate, rhythm, no edema, no gallop, no JVD, no murmur Abdomen / GI: normal bowel sounds, non tender, soft Neurologic/Psychiatric: hand drawer in helper II-XII nml as tested, no motor/sensory deficits , alert, normal reflexes, oriented x 3 Skin: no rash Lymphatic: no adenopathy Hospital Course 81 yo F with labile blood pressures, currently hypertensive with orthostasis. Hypoglycemia likely from combination of poor appetite with diarrheal illness and excessive insulin with 70/30 regime. Orthostasis and hypertension - labile BP with highs of 170 systolic and then later in the day, 140 systolic - continue Clonidine 0.2mg BID and can continue Lisinopril 5mg daily (dose should not really affect BP) - start Florinef to treat the orthostasis, 0.1mg PO q AM (discharged on Florinef last admission, not sure what happened), first dose of Florinef today, if still orthostatic will consult cardiology. - pt did very well with Florinef and her BP improved , we advise to continue with medication after discharge. Pt sitting BP 135/71, HR 73 and standing BP 125 /70 HR 80. orthostasis resolved. Pt was walking without difficulty and wants to go home. We advise if she develop dizziness again she should return to ED. Hypoglycemia: resolved, AM 70/30 insulin was held on admission - no issues with hypoglycemia until PCP recently increased dosage to 38/18, pt was advise to go down to 30/18. - will ask pharmacy to order Lantus and Novolog, try to change her regimen to prevent hypoglycemia - Management as per pharmacy Elevated LFTs - Liver US: absent GB, dilated CBC which would be expected with cholecystectomy - trending down, advise to follow with pcp Constipation - chronic issues with constipation. - laxatives, resolved CAD - Continue Plavix, statin Restless leg - Continue Lyrica Total Time Spent: Greater than 30 minutes This includes examination of the patient, discharge planning, medication reconciliation, and communication with other providers. Discharge Instructions Please refer to the electronic Patient Visit Report (Discharge Instructions) for additional information. Follow-Up PCP with in 1-2 week
[2016-11-19 10:02] VITALS: BP 106/84; PULSE 120; TEMP 36.9; O2SAT 92
--- NOTE | 2016-11-19 16:25 | Progress Note ---
Progress Note Date of Service Nov 19, 2016. Progress Note Receive a call from [facility] pharmacy regarding refill for clonidine, we advise since pt call around 1 pm after discharge and verbally abuse me over the telephone,that her BP is low. Later I receive a call from pharmacist that pt wants a refill of clonidine. I told pharmacist based on patient current condition decrease the dose to 0.1mg po BID.
== END 2016-11-19 11:28 | disposition home or self-care (01) | DRG 312 ==
LOC: C.EDB 18:24 → C.MED 22:41 → ENRESERV 23:00
PROVIDERS: ADMIT Hospitalist; ATTEND Internal Medicine
DX: I95.1 Orthostatic hypotension (principal); I50.30 Unspecified diastolic (congestive) heart failure; I25.10 Atherosclerotic heart disease of native coronary artery without angina pectoris; I11.0 Hypertensive heart disease with heart failure; E11.649 Type 2 diabetes mellitus with hypoglycemia without coma; I25.2 Old myocardial infarction; G31.83 Neurocognitive disorder with Lewy bodies; F02.80 Dementia in other diseases classified elsewhere, unspecified severity, without behavioral disturbance, psychotic disturbance, mood disturbance, and anxiety; G25.81 Restless legs syndrome; R19.7 Diarrhea, unspecified; K59.00 Constipation, unspecified; Z79.02 Long term (current) use of antithrombotics/antiplatelets; Z79.4 Long term (current) use of insulin; Z79.899 Other long term (current) drug therapy; Z95.0 Presence of cardiac pacemaker